=== PATIENT | female | born 1950 | race Hispanic/Latino ===

== ENCOUNTER 2017-11-08 15:08 | Inpatient (IN) | payer MEDICARE ==
[~2017-11-08 15:08] MED LIST: ISOVUE-370 76%-LOCM 1 ML ONE
[2017-11-08 15:45] LABS: Bilirubin Small (Negative); Blood, Urine Trace (Negative); Clarity CLEAR (Clear); Glucose, Urine (Dipstick) Negative (Negative); Leukocyte Negative (Negative); Nitrite Negative (Negative); Protein, Urine (Dipstick) 30 mg/dL (Neg-Trace); Specific Gravity, Urine 1.026 (1.002-1.036); pH, Urine 6.5 (5.0-9.0)
[2017-11-08 15:51] LABS: Bacteria/HPF None Seen HPF (None Seen); Hyaline Casts/LPF 4-6 HYALINE CAST LPF (0-3 Hyaline); Pathc Cast-AUWi Flag 1.59 (0-2.49); WBC/HPF 0-3 HPF (0-3)
[2017-11-08 16:43] LABS: #Eosinphils 0.2 thou/uL (0.0-0.7); #Lymphocytes 0.9 thou/uL (1.20-3.40); #Monocytes 0.8 thou/uL (0.11-0.59); #Neutrophils 9.1 thou/uL (1.40-6.50); %Basophils 0.2 % (0.0-1.0); %Eosinophils 1.7 % (0.0-10.0); %Lymphocytes 8.3 % (21.0-51.0); %Monocytes 7.1 % (0.0-10.0); %Neutrophils 82.7 % (42.0-75.0); Hemoglobin 15.8 g/dL (12.0-16.0); Mean Corpuscular HGB CONC 35.3 g/dL (32.0-36.0); Mean Corpuscular Hemoglobin 32.8 pg (27.0-31.0); Mean Corpuscular Volume 92.8 fL (78.0-98.0); Platelet Count 199 thou/uL (130-400); RBC Distribution Width 11.5 % (11.5-14.5); Red Blood Cell (RBC) Count 4.83 mill/uL (4.20-5.40)
--- NOTE | 2017-11-08 17:02 | RAD ---
CHEST ONE VIEW: 11/08/17 HISTORY: 67-year-old female with chest pain. COMPARISON: 06/29/09. FINDINGS: Monitor leads overlie the chest. Heart size is within normal limits. The lungs are clear. IMPRESSION: No acute intrathoracic disease. Atherosclerosis of the aorta. POS: OFF
[2017-11-08 17:07] LABS: ALT (SGPT) 73 U/L (8-55); AST (SGOT) 132 U/L (5-34); Albumin 4.3 g/dL (3.4-4.8); Alkaline Phosphatase 106 U/L (40-150); Anion Gap 13 mmol/L (10-20); BUN (Urea Nitrogen) 15 mg/dL (9.8-20.1); Bilirubin, Total 1.1 mg/dL (0.2-1.2); Calc. Creatinine Clearance 0 mL/min (70-130); Carbon Dioxide 26 mmol/L (23-31); Chloride 106 mmol/L (98-107); Estimated GFR-MDRD 77; Globulin 3.3 g/dL (2.4-3.5); Glucose 159 mg/dL (80-115); Potassium 3.8 mmol/L (3.5-5.1); Protein, Total 7.6 g/dL (6.0-8.3); Sodium 141 mmol/L (136-145)
[2017-11-08 17:12] LABS: CKMB 2.3 ng/mL (0-6.6); Troponin I Less than 0.010 ng/mL (< 0.028)
--- NOTE | 2017-11-08 20:16 | ULT ---
RIGHT UPPER QUADRANT ULTRASOUND: 11/08/17 HISTORY: Abdominal pain and elevated lipase. FINDINGS: There are a few echogenic foci seen in the gallbladder lumen with posterior shadowing suggesting gall bladder calculi. Gallbladder wall is borderline thickened measuring 0.35 cm in thickness. No perichol ecystic fluid is present. The limited visualized portions of the pancreas, visualized portions of the IVC, liver, and right kid cris demonstrate a normal sonographic appearance. The right kidney measures 9.8 cm in length. IMPRESSION: Cholelithiasis with borderline thickening of the gallbladder wall. There is no pericholecystic fluid to definitely suggest cholecystitis, but cholecystitis in the correct clinical scenario is a possibil ity. The common duct is normal in caliber measuring 0.4 cm in diameter. POS: RAKAN
[2017-11-08 20:20] VITALS: BMI 27.4
[2017-11-08] MEDS ORDERED: Ondansetron HCl/PF 4 MG/2 ML Vial IVP PRN (20:30)
[2017-11-08] MEDS ORDERED: Ondansetron ODT 4 MG TAB SL PRN (20:30)
[2017-11-08] MEDS: Sodium Chloride 0.9% 1,000 ML IV SCH (21:12)
--- NOTE | 2017-11-08 21:56 | CT ---
CT ABDOMEN AND PELVIS WITH IV CONTRAST: 11/08/17 HISTORY: Nausea and feeling pressure to bilateral flank and chest. COMPARISON: Right upper quadrant ultrasound on 11/08/17. FINDINGS: There is a less than 4 mm pulmonary nodule seen at the medial aspect of the right lung base. Lung bas es are otherwise clear. There is mild gallbladder wall thickening with a punctate calculus seen in the dependent portion of t he gallbladder. These findings were seen on right upper quadrant ultrasound also obtained on today's date. A 13 mm hypodense cystic lesion is seen in the body of the pancreas, which cannot be further characte rized on this exam. The liver, spleen, bilateral adrenal glands, kidneys, abdominal aorta, urinary bladder and uterus dem onstrate a normal CT appearance for the patient's age. There is colonic diverticulosis with innumerable diverticula seen throughout the colon. There is no C T evidence of diverticulitis. No free fluid, fluid collection, or lymphadenopathy seen in the abdomen or pelvis. Osseous structures are intact IMPRESSION: 1. Cholelithiasis with mild gallbladder wall thickening. Findings may be related to cholecystiti s in the correct scenario. 2. Cystic pancreatic lesion in the body of the pancreas which measures 13 mm. This is difficult to further characterize on this examination. Followup examination in six months to one year is recomm ended. 3. Colonic diverticulosis. Code T POS: ELZA
[2017-11-08] MEDS ORDERED: Senokot 8.6 MG TAB PO PRN (23:07)
[2017-11-08] MEDS ORDERED: Bisacodyl 5 MG TAB PO PRN (23:07)
[2017-11-08] MEDS ORDERED: Dextrose 50% Abboject 50 ML SYRINGE SLOW IVP PRN (23:09)
[2017-11-08] MEDS ORDERED: Dextrose 5% in Water 1,000 ML IV PRN (23:09)
[2017-11-08] MEDS ORDERED: HumaLOG 300 UNITS/3 ML VIAL SC PRN (23:09)
--- NOTE | 2017-11-09 04:29 | PDOC.EVN ---
Event Note - Event Note Event Note: h&p [id number]
[2017-11-09 05:20] LABS: #Basophils 0.1 thou/uL (0.0-0.2); #Eosinphils 0.2 thou/uL (0.0-0.7); #Lymphocytes 1.1 thou/uL (1.20-3.40); #Monocytes 0.4 thou/uL (0.11-0.59); %Basophils 1.5 % (0.0-1.0); %Lymphocytes 22.7 % (21.0-51.0); %Monocytes 8.9 % (0.0-10.0); %Neutrophils 61.9 % (42.0-75.0); Hemoglobin 13.6 g/dL (12.0-16.0); Mean Corpuscular HGB CONC 34.8 g/dL (32.0-36.0); Mean Corpuscular Hemoglobin 32.8 pg (27.0-31.0); Mean Corpuscular Volume 94.3 fL (78.0-98.0); Mean Platelet Volume 8.3 fL (7.4-10.4); Platelet Count 157 thou/uL (130-400); RBC Distribution Width 11.6 % (11.5-14.5); Red Blood Cell (RBC) Count 4.16 mill/uL (4.20-5.40); White Blood Cell (WBC) Count 4.9 thou/uL (4.8-10.8)
--- NOTE | 2017-11-09 05:22 | HP ---
PRIMARY CARE PHYSICIAN: Dr. Fabian Carpio. CHIEF COMPLAINT: Nausea. HISTORY OF PRESENT ILLNESS: A 67-year-old female with minimal past medical history who presents with a chief complaint of nausea and bilateral chest pain accompanied by one episode of vomiting that occurred earlier during the day. Patient denies any prior similar episodes or any episodes of vomiting or chest pain prior to presentation. At the time of my evaluation, the patient denies any continued chest pain, has not had any further vomiting and currently is pain-free throughout. REVIEW OF SYSTEMS: As per HPI. Constitutional: Denies any fevers, chills, significant weight gain or loss. HEENT: Denies any new headaches, vision changes, lightheadedness or dizziness. Cardiovascular: Denies any palpitation. Was experiencing bilateral chest pain during her onset of nausea, which is currently resolved and has not recurred. Respiratory: The patient endorsed some shortness of breath when she was having the chest pain, which again is resolved. Otherwise, denies any shortness of breath, congestion, or cough outside of that one episode. Gastrointestinal: As per HPI. No continued nausea. No continued abdominal pain. No issues with diarrhea or constipation. Genitourinary: Denies any issues with dysuria, change in urinary frequency, quantity, quality, or odor. Musculoskeletal: Denies any myalgias or arthralgias. Remainder of the review of systems otherwise negative. PAST MEDICAL HISTORY: Includes diabetes, hyperlipidemia. PAST SURGICAL HISTORY: She has had prior hysterectomy and no other surgeries. HOME MEDICATIONS: 1. Atorvastatin 10 mg p.o at bedtime. 2. Aspirin 81 mg p.o. daily. 3. Cholecalciferol 1000 units p.o. daily. 4. Metformin 500 mg p.o. daily. FAMILY HISTORY: The patient denies any known family history of pancreatic issues, gastrointestinal issues. SOCIAL HISTORY: The patient denies any alcohol, tobacco, or illicit drug use. Endorses she wishes to be FULL CODE at this point in time. PHYSICAL EXAMINATION: VITAL SIGNS: Temperature 98, respirations 18, satting 97% on room air, heart rate of 68, blood pressure 152/78. GENERAL: The patient is awake, alert, appropriate, in no acute distress, lying in the hospital bed. HEENT: Normocephalic, atraumatic, slightly dry mucous membranes, equal ocular motions are intact. CARDIOVASCULAR: S1, S2. No murmurs, rubs, or gallops. Pulses 2+ bilateral upper extremities. No pitting pedal edema. RESPIRATORY: No conversational dyspnea. No wheezes, rales, or rhonchi. Grossly clear to auscultation with reasonable air movement. ABDOMEN: Positive bowel sounds, soft, grossly nontender to palpation. MUSCULOSKELETAL: Moving all 4 extremities equally. IMAGIN. On 11/08/2017, ultrasound of the abdomen: Impression: "Cholelithiasis with borderline thickening of the gallbladder wall. There is no pericholecystic fluid to definitely suggest cholecystitis, but cholecystitis in the correct clinical scenario is a possibility. The common duct is normal in caliber, measuring 0.4 cm in diameter." 2. On 11/08/2017, chest x-ray: Impression: "No acute intrathoracic disease. Atherosclerosis of the aorta." 3. On 11/08/2017, CT of the abdomen and pelvis: Impression: "Cholelithiasis with mild gallbladder wall thickening. Findings may be related to cholecystitis in the correct scenario. Cystic pancreatic lesion in the body of the pancreas, which measures 13 mm. This is difficult to further characterize on this examination. Followup examination in 6 months to 1 year is recommended. Colonic diverticulosis." LABORATORY DATA: WBC 11.0, hemoglobin 15.8, hematocrit 44.9, platelets 199, 000. D-dimer 0.85, sodium 141, potassium 3.8, chloride 106, bicarbonate 26, BUN 15, creatinine 0.75, glucose 159, calcium 10.0, magnesium 2.0, total bilirubin 1.1, AST 132, ALT 73, alkaline phosphatase 106. Creatinine kinase 79 , troponin less than 0.1, total protein 7.6, albumin 4.3, lipase is 550. UA is significant for 30 of protein, 40 ketones, trace blood, small bilirubin, 7-10 urine rbc's, 4-6 urine squamous epithelial cells, 4-6 hyaline casts. ASSESSMENT AND PLAN: A 67-year-old female presenting with a chief complaint of nausea and vomiting x1. 1. Nausea and vomiting x1 with concerning for a question of pancreatitis versus mild cholecystitis. The patient is currently n.p.o., IV fluids, pain control. Lipsse 550. I appreciate gastroenterology consultation. We will recheck the patient's LFTs in the morning as well and continue to closely monitor. 2. Pancreatic cyst. Unclear that this is necessarily the etiology of the patient's presentation. We will need longitudinal followup. 3. Type 2 diabetes. Continue to monitor. Hold metformin while the patient is n.p.o. The patient will be covered by sliding scale insulin while inpatient. 4. Hyperlipidemia. Continue with the home regimen. 5. Diet: N.p.o., IV fluids. 6. Activity: As tolerated. 7. Deep venous thrombosis prophylaxis with enoxaparin. MTDD
[2017-11-09 05:31] LABS: ALT (SGPT) 139 U/L (8-55); AST (SGOT) 104 U/L (5-34); Albumin 3.5 g/dL (3.4-4.8); Alkaline Phosphatase 91 U/L (40-150); Anion Gap 9 mmol/L (10-20); BUN (Urea Nitrogen) 9 mg/dL (9.8-20.1); Bilirubin, Total 0.7 mg/dL (0.2-1.2); Calc. Creatinine Clearance 81 mL/min (70-130); Calcium 8.6 mg/dL (7.8-10.44); Carbon Dioxide 28 mmol/L (23-31); Chloride 107 mmol/L (98-107); Estimated GFR-MDRD 88; Globulin 2.7 g/dL (2.4-3.5); Glucose 103 mg/dL (80-115); Lipase 66 U/L (8-78); Potassium 3.9 mmol/L (3.5-5.1); Protein, Total 6.2 g/dL (6.0-8.3); Sodium 140 mmol/L (136-145)
[2017-11-09] MEDS: Sodium Chloride 0.9% 1,000 ML IV SCH ×3 (05:37→22:51)
[2017-11-09] MEDS ORDERED: Enoxaparin Sodium 30 MG/0.3 ML SYRINGE SC SCH (09:00)
[2017-11-09] MEDS: Docusate 100 MG CAP PO SCH ×2 (09:13→20:15)
[2017-11-09] MEDS ORDERED: Ondansetron ODT 4 MG TAB SL PRN (13:02)
[2017-11-09] MEDS ORDERED: Ondansetron HCl/PF 4 MG/2 ML Vial IVP PRN (13:03)
--- NOTE | 2017-11-09 13:21 | PDOC.PN ---
- Subjective Encounter Start Date: 11/09/17 Encounter Start Time: 07:45 Subjective: no abd pain or nausea -: feels good this morning, is watching tv - Objective Resuscitation Status: Resuscitation Status FULL:Full Resuscitation MAR Reviewed: Yes Vital Signs & Weight: Vital Signs (12 hours) Temp Pulse Resp BP Pulse Ox 11/09/17 12:16 97.7 F 52 L 52 H 156/74 H 98 11/09/17 08:00 97.8 F 63 16 98 11/09/17 07:52 97.8 F 63 16 153/77 H 98 11/09/17 04:05 97.7 F 63 18 154/74 H 97 Weight Weight 140 lb 9 oz I&O: 11/08/17 11/09/17 11/10/17 06:59 06:59 06:59 Intake Total 1000 Balance 1000 Result Diagrams: 11/09/17 04:35 11/09/17 04:35 Additional Labs: Accuchecks 11/09/17 11/08/17 05:36 23:25 POC Glucose 102 100 Phys Exam - Physical Examination HEENT: PERRLA, moist MMs Neck: no JVD, supple Respiratory: no wheezing, no rales Cardiovascular: RRR, no significant murmur Gastrointestinal: soft, non-tender, no distention, positive bowel sounds no rigidity or guarding Musculoskeletal: no edema, pulses present Neurological: non-focal, moves all 4 limbs Psychiatric: normal affect, A&O x 3 Dx/Plan (1) Acute pancreatitis Code(s): K85.90 - ACUTE PANCREATITIS WITHOUT NECROSIS OR INFECTION, UNSP Status: Suspected Qualifiers: Pancreatitis type: unspecified pancreatitis type (2) Cholelithiasis Code(s): K80.20 - CALCULUS OF GALLBLADDER W/O CHOLECYSTITIS W/O OBSTRUCTION Status: Chronic Qualifiers: Cholelithiasis location: gallbladder Cholecystitis presence: without cholecystitis (3) Dyslipidemia Code(s): E78.5 - HYPERLIPIDEMIA, UNSPECIFIED Status: Chronic (4) DM type 2 (diabetes mellitus, type 2) Status: Chronic Qualifiers: Diabetes mellitus longterm insulin use: without meterman use Diabetes mellitus complication status: with unspecified complications Qualified Code(s) : E11.8 - Type 2 diabetes mellitus with unspecified complications - Plan start clear liq diet, is totally asymptomatic now -: d/w Dr.Parrent with reg to imaging, outpt appt -: will need endo usg for pancreatic cyst? per adv -: still has elevated alt and ast, lipase is down to 66 -: continue iv hydration * . Review of Systems - Medications/Allergies Allergies/Adverse Reactions: Allergies Allergy/AdvReac Type Severity Reaction Status Date / Time No Known Allergies Allergy Unverified 11/08/17 20:21 Medications: Current Medications Bisacodyl (Dulcolax) 10 mg PO DAILYPRN PRN PRN Reason: Constipation Dextrose/Water (Dextrose 50%) 25 gm SLOW IVP PRN PRN PRN Reason: Hypoglycemia Docusate Sodium (Colace) 100 mg PO BID [facility] Last Admin: 11/09/17 09:13 Dose: Not Given Enoxaparin Sodium (Lovenox) 30 mg SC 0900 [facility] Last Admin: 11/09/17 09:13 Dose: 30 mg Glucagon (Glucagon) 1 mg IM PRN PRN PRN Reason: Hypoglycemia Dextrose/Water (D5w) 1,000 mls @ 0 mls/hr IV .Q0M PRN PRN Reason: Hypoglycemia Sodium Chloride (Normal Saline 0.9%) 1,000 mls @ 100 mls/hr IV .Q10H [facility] Insulin Human Lispro (Humalog) 0 units SC .MILD SLIDING SCALE PRN PRN Reason: Mild Correctional Scale Morphine Sulfate (Morphine) 2 mg SLOW IVP Q2H PRN PRN Reason: Pain Ondansetron HCl (Zofran Odt) 4 mg SL Q6H PRN PRN Reason: Nausea/Vomiting Ondansetron HCl (Zofran) 4 mg IVP Q6H PRN PRN Reason: Nausea/Vomiting Senna (Senokot) 2 tab PO HSPRN PRN PRN Reason: Constipation Sodium Chloride (Flush - Normal Saline) 10 ml IVF Q12HR [facility] Last Admin: 11/09/17 09:13 Dose: 10 ml Sodium Chloride (Flush - Normal Saline) 10 ml IVF PRN PRN PRN Reason: Saline Flush
--- NOTE | 2017-11-09 20:09 | CON ---
DATE OF CONSULTATION: 11/09/2017 GI CONSULTATION REASON FOR CONSULTATION: Cyst in the pancreas and abdominal pain and gallstones. HISTORY OF PRESENT ILLNESS: Ms. Spring is a very pleasant 67-year-old female who came to the [facility] room because she was having tightness around her back and chest and flank with some nausea and vomiting. She also felt a little short of breath. This started about a little after breakfast chori zo and eggs, but at the time, she was here in the emergency room, she actually started to feel better . She also had had some left lower quadrant discomfort on and off for the past day. She had normal bowel movements with no hematochezia or melena and she had no diarrhea. She denied feeling sick like she had a stomach bug or flu and before these symptoms came on, she was otherwise normal. She denie s any similar episodes in the past. She denies any previous episodes of shortness breath, chest pain , nausea or diaphoresis with exertion. She works as a rn intern at [employer] and her states she also stays very active at home. Presently she feels fine. In the emergency room showed a white cou nt 11, hemoglobin 15, and platelet count of 119. She had a D-dimer 0.85. She had a troponin of less than 0.01 and normal EKG. Lipase was elevated at 550, AST and ALT are 132 and 73 with a bilirubin o f 1.1. Albumin was 4.3 with a protein of 7.6. Renal function, electrolytes were normal. She was se nt for an ultrasound that showed gallstones with a thickened gallbladder wall 0.35 cm. The common du ct was 4 mm. There was no pericholecystic fluid. The liver otherwise appeared normal. Then, she al so had a chest x-ray, which was normal. Then, she had a CAT scan, in that showed a 13 mm cystic lesi on in the body of the pancreas as well as the gallstones and diverticulosis without any signs of dive rticulitis. She was admitted to the hospital and made n.p.o. presently she feels fine. She is on a clear liquid diet. PAST MEDICAL HISTORY: Diabetes, hyperlipidemia. PAST SURGICAL HISTORY: Hysterectomy for uterine prolapse. She has had a colonoscopy in the past, wh ich was normal. HOME MEDICATIONS: Atorvastatin 10 mg at bedtime, aspirin 81 mg a day, metformin 1000 mg a day, winnie calciferol 1000 units daily. FAMILY HISTORY: Negative for pancreatic disease. Negative for colorectal cancer. Negative for miguelina nary artery disease or stroke. MEDICATIONS HERE: Dulcolax p.r.n., Lovenox 30 every day, insulin sliding scale, morphine, p.r.n. Zof ran, p.r.n., Senokot, p.r.n., normal saline 100 an hour. SOCIAL HISTORY: The patient does not smoke, drink or use drugs. REVIEW OF SYSTEMS: She has never had any bouts of pancreatitis before. She denies any melena, hemat ochezia, hematemesis, dysphagia, odynophagia, reflux, weight loss, fever, chills, change in bowel fun ction, shortness of breath, chest pain, dyspnea on exertion, asthma, wheezing, cough. PHYSICAL EXAMINATION: VITAL SIGNS: Temperature is 97.7, pulse 52, blood pressure 156/74. GENERAL: She is resting comfortably in bed. She is alert and oriented to person, place, and time. Her is at bedside. HEENT: Supple, without adenopathy. LUNGS: Clear. CARDIOVASCULAR: Heart regular, without clicks or murmurs. ABDOMEN: Soft, nontender, no rebound or guarding. EXTREMITIES: No clubbing, cyanosis or edema. LABORATORY DATA: Per HPI. Urinalysis showed some ketones on admission, trace blood, 7-10 red blood cells, lipase today 66. AST and ALT have dropped from 132 and 73-104 and 139. Electrolytes were nor mal. ASSESSMENT: 1. This is a 67-year-old female who presented to emergency room with about two hours of tightness ac ross her lower chest and flanks with nausea and vomiting. This lasted about two hours after eating a nd then resolved. She does not have any other episodes such as this in the past. She denies any oth er episodes of right upper quadrant pain. However, in these episodes, her LFTs were elevated and her lipase was elevated. The lipase is now normal. The patient does not know of her liver test being a bnormal before. She does see Dr. Carpio for checkups routinely and states there have been no menti on of that there. She initially came in because she was concerned about her heart, but her cardiac e nzymes and EKG were negative and she does not have any symptoms suggestive of exertional ischemia or nonexertional chest pain outside of this episode. With the correlation of the abdominal pain with el evation of lipase and liver enzymes and gallstones, I suspect this was an episode of mild biliary russo creatitis. Differential diagnosis would include a possible viral gastroenteritis with incidental fin ding of gallstones, but it does less likely. 2. With regard to her pancreatic cyst. This seems to be probably a benign pancreatic cyst, possibly mucinous or serous cystadenoma most likely IPM is possible. There is no evidence of a dilated pancreatic duct proximal to the cystic lesion. There is no evidence of adenopathy and calcifi cations or satellite lesions. This should be worked up with MRCP in 3 months and can be followed for change inside the EUS would be reasonable before followup. I do not think this is related to her ac james symptoms anyway and was an incidental finding with her becomes clinically significant or not, it is yet to be seen. RECOMMENDATIONS: 1. Surgical consultation regarding gallstones and likely gallstone pancreatitis. 2. Follow up in 3 months for MRCP of the pancreas to evaluate follow up pancreatic cyst.
[2017-11-10 04:23] LABS: #Eosinphils 0.3 thou/uL (0.0-0.7); #Lymphocytes 1.2 thou/uL (1.20-3.40); #Monocytes 0.4 thou/uL (0.11-0.59); #Neutrophils 2.1 thou/uL (1.40-6.50); %Basophils 0.7 % (0.0-1.0); %Eosinophils 7.4 % (0.0-10.0); %Lymphocytes 29.6 % (21.0-51.0); %Monocytes 9.3 % (0.0-10.0); %Neutrophils 53.1 % (42.0-75.0); Hemoglobin 13.8 g/dL (12.0-16.0); Mean Corpuscular HGB CONC 34.6 g/dL (32.0-36.0); Mean Corpuscular Hemoglobin 32.5 pg (27.0-31.0); Mean Corpuscular Volume 93.8 fL (78.0-98.0); Platelet Count 160 thou/uL (130-400); RBC Distribution Width 11.5 % (11.5-14.5); Red Blood Cell (RBC) Count 4.24 mill/uL (4.20-5.40)
[2017-11-10 04:53] LABS: ALT (SGPT) 96 U/L (8-55); AST (SGOT) 41 U/L (5-34); Albumin 3.7 g/dL (3.4-4.8); Alkaline Phosphatase 83 U/L (40-150); Anion Gap 11 mmol/L (10-20); BUN (Urea Nitrogen) 5 mg/dL (9.8-20.1); Bilirubin, Total 0.5 mg/dL (0.2-1.2); Calc. Creatinine Clearance 87 mL/min (70-130); Calcium 8.8 mg/dL (7.8-10.44); Carbon Dioxide 24 mmol/L (23-31); Chloride 106 mmol/L (98-107); Estimated GFR-MDRD Greater than 90; Globulin 2.7 g/dL (2.4-3.5); Glucose 115 mg/dL (80-115); Potassium 3.2 mmol/L (3.5-5.1); Protein, Total 6.4 g/dL (6.0-8.3); Sodium 138 mmol/L (136-145)
[2017-11-10] MEDS ORDERED: Bupivacaine/Epinephrine 0.25% 30 ML VIAL ONE (07:41)
[2017-11-10] MEDS ORDERED: Iothalamate Meglumine 60% 50 ML VIAL FS ONE (07:41)
[2017-11-10] MEDS ORDERED: Fentanyl 100 MCG/2 ML VIAL ONE (07:47)
[2017-11-10] MEDS ORDERED: Promethazine HCl 25 MG/ML VIAL IM PRN ×2 (07:56→10:08)
[2017-11-10] MEDS ORDERED: Ondansetron HCl/PF 4 MG/2 ML Vial IVP PRN ×2 (07:56→10:08)
[2017-11-10] MEDS ORDERED: Meperidine HCl/PF 25 MG/ML VIAL SLOW IVP PRN (07:56)
[2017-11-10] MEDS ORDERED: Promethazine HCl 25 MG/ML VIAL SLOW IVP PRN (07:56)
[2017-11-10] MEDS ORDERED: CEFAZOLIN/Water 2 GM/20 ML SYRINGE ONE (08:05)
[2017-11-10] MEDS: Sodium Chloride 0.9% 1,000 ML IV SCH (08:50)
[2017-11-10] MEDS: Docusate 100 MG CAP PO SCH (08:50)
[2017-11-10] MEDS ORDERED: Sodium Chloride For Inhalation 0.9% 3 ML NEB ONE (09:20)
[2017-11-10] MEDS ORDERED: Mag-Al 1200 mg/1200 mg/30 ML UDCUP PO PRN (10:08)
[2017-11-10] MEDS ORDERED: D5 1/2 NS w/20 mEq KCL 1,000 ML IV SCH (10:08)
[2017-11-10] MEDS ORDERED: hydrALAZINE 20 MG/ML VIAL SLOW IVP PRN (10:08)
[2017-11-10] MEDS ORDERED: Calcium Carbonate 500 MG ChewTAB PO PRN (10:08)
[2017-11-10] MEDS ORDERED: Famotidine 20 MG TAB PO SCH ×2 (10:08→21:00)
[2017-11-10] MEDS ORDERED: Famotidine/PF 20 mg/2ml Vial SLOW IVP SCH ×3 (10:08→21:00)
[2017-11-10] MEDS ORDERED: Dextrose 50% Abboject 50 ML SYRINGE SLOW IVP PRN (10:08)
[2017-11-10] MEDS ORDERED: HYDROcodone/Acetaminophen 10/325 mg Tablet PO PRN ×2 (10:08)
[2017-11-10] MEDS ORDERED: Dextrose 5% in Water 1,000 ML IV PRN (10:08)
[2017-11-10] MEDS ORDERED: Morphine 4 MG/ML VIAL SLOW IVP PRN (10:08)
--- NOTE | 2017-11-10 10:52 | RAD ---
INTRAOPERATIVE CHOLANGIOGRAM: HISTORY: Cholelithiasis, cholecystectomy. FINDINGS: A single spot fluoroscopic image during a cholangiogram demonstrates changes of cholecystectomy. The re is opacity in the common bile duct and main hepatic ducts and some of their branches with a sugges tion of a filling defect in the proximal common bile duct. This may either be due to an air bubble ( more likely) or calculus. There is contrast in the duodenum. Surgical instruments are in the field of view. POS: ELZA
--- NOTE | 2017-11-10 13:17 | OP ---
DATE OF OPERATION: 11/10/2017 PREOPERATIVE DIAGNOSIS: Gallstone pancreatitis. POSTOPERATIVE DIAGNOSIS: Gallstone pancreatitis. PROCEDURE: Laparoscopic cholecystectomy, intraoperative cholangiogram. SURGEON: Tera Lai M.D. ANESTHESIA: General. ESTIMATED BLOOD LOSS: Minimal. COMPLICATIONS: None. SPECIMEN: Gallbladder. FINDINGS: Normal cholangiogram. TECHNIQUE: The patient was taken to the operating room and placed supine on the table. After genera l anesthetic was obtained, the abdomen was prepped and draped in a sterile fashion. Curved incision made above the umbilicus. Cautery was used to dissect down to and score the fascia. Abdominal cavit y entered bluntly using a Marisol clamp. Holding stitch of PDS placed on each side of the fascia. Has bear trocar was placed. High-flow pneumoperitoneum was obtained. Upper midline 5-mm port and 2 right upper quadrant 5 mm ports were placed under direct visualization. Gallbladder was retracted from th e gallbladder fossa. The peritoneum was opened anteriorly and posteriorly. Critical view triangle w as seen showing only the cystic duct and cystic artery branching from medial to lateral no other bran madison structures. A clip was placed high on the cystic duct and a small ductotomy was made just prox imal to that. A cholangiocatheter was brought in and placed in the cystic duct and cholangiogram was performed which shows good contrast flow into the duodenum, right and left hepatic system without ob struction. Cholangiocatheter was removed and 2 clips were placed proximal on the cystic duct. The c ystic artery was taken using 2 clips proximally and one clip distally, and cut using laparoscopic sci ssors. Cautery used to dissect the gallbladder, gallbladder fossa. Gallbladder was placed in an End o catch bag and brought out through the Negrete. There is no bleeding in the liver bed. The right up per quadrant irrigated using sterile solution until returns are clear. The ports were all removed un gerri direct visualization without bleeding. Pneumoperitoneum was let down. PDS was used to close the fascial defect above the umbilicus. All incisions were irrigated and closed using 4-0 Monocryl and Dermabond. The patient went to recovery in stable condition. All sponge counts, needle counts, lap counts were correct.
--- NOTE | 2017-11-10 13:19 | CON ---
DATE OF CONSULTATION: 11/10/2017 CHIEF COMPLAINT: Epigastric pain. HISTORY OF PRESENT ILLNESS: This is a 67-year-old female, who presented with pain in epigastric area , admitted to the Medical Service for cardiac workup, which was negative, found to have gallstones, e levated lipase. Her liver function tests are now improved. Pain was described as 8/10 and sharp in the epigastric area, radiating to the right upper chest associated with nausea, no vomiting. No prev ious known history of gallstones, jaundice, pancreatitis. PAST MEDICAL HISTORY: Diabetes, hyperlipidemia. PAST SURGICAL HISTORY: Hysterectomy. MEDICINES: See list. ALLERGIES: No known drug allergies. SOCIAL HISTORY: No smoking, alcohol or other drugs. REVIEW OF SYSTEMS: Ten-system review of systems otherwise negative unless described above. PHYSICAL EXAMINATION: HEENT: Sclerae are anicteric. Oropharynx clear. NECK: No lymphadenopathy. CHEST: Clear. HEART: Regular rate and rhythm. ABDOMEN: Soft, tender right upper quadrant, localized guarding, no rebound, no abdominal hernias. EXTREMITIES: No ischemia or edema to extremities. LABORATORY AND X-RAY FINDINGS: Liver function test, AST, ALT are 41 and 96. Bilirubin normal. Lipa se was 66 yesterday elevated at 550 when she came in. Ultrasound shows gallstones. ASSESSMENT: Gallstone pancreatitis, resolved. PLAN: Laparoscopic cholecystectomy and intraoperative cholangiogram. Risks, benefits, alternatives discussed. She gives consent. We will do this today.
--- NOTE | 2017-11-10 14:56 | PDOC.PN ---
- Subjective Encounter Start Date: 11/10/17 Encounter Start Time: 11:00 Subjective: is post op lap winnie -: no nausea or vomiting - Objective Resuscitation Status: Resuscitation Status FULL:Full Resuscitation MAR Reviewed: Yes Vital Signs & Weight: Vital Signs (12 hours) Temp Pulse Resp BP BP Pulse Ox 11/10/17 11:03 53 L 170/77 H 11/10/17 08:00 97.9 F 53 L 18 93 L 11/10/17 07:33 97.9 F 53 L 18 148/73 H 93 L 11/10/17 03:29 98 F 56 L 16 156/85 H 95 Weight Weight 140 lb 9 oz I&O: 11/09/17 11/10/17 11/11/17 06:59 06:59 06:59 Intake Total 1000 1800 Balance 1000 1800 Result Diagrams: 11/10/17 04:04 11/10/17 04:04 Additional Labs: Accuchecks 11/10/17 11/10/17 11/09/17 11:19 06:18 23:58 POC Glucose 164 H 119 H 109 11/09/17 11/09/17 16:29 12:20 POC Glucose 97 105 Phys Exam - Physical Examination HEENT: PERRLA, moist MMs Neck: no JVD, supple Respiratory: no wheezing, no rales Cardiovascular: RRR, no significant murmur Gastrointestinal: soft, positive bowel sounds Musculoskeletal: no edema, pulses present Neurological: non-focal, moves all 4 limbs Psychiatric: normal affect, A&O x 3 Dx/Plan (1) Acute pancreatitis Code(s): K85.90 - ACUTE PANCREATITIS WITHOUT NECROSIS OR INFECTION, UNSP Status: Suspected Qualifiers: Pancreatitis type: biliary (2) Cholelithiasis Code(s): K80.20 - CALCULUS OF GALLBLADDER W/O CHOLECYSTITIS W/O OBSTRUCTION Status: Chronic Qualifiers: Cholelithiasis location: gallbladder Cholecystitis presence: with cholecystitis Comment: s/p lap winnie 11/10/2017 (3) Dyslipidemia Code(s): E78.5 - HYPERLIPIDEMIA, UNSPECIFIED Status: Chronic (4) DM type 2 (diabetes mellitus, type 2) Status: Chronic Qualifiers: Diabetes mellitus retirement insulin use: without retirement use Diabetes mellitus complication status: with unspecified complications Qualified Code(s) : E11.8 - Type 2 diabetes mellitus with unspecified complications - Plan hemostable -: has been cleared for dc by -: is post op lap winnie, doing well -: to ambulate in hallway prior to dc * .
[2017-11-10] MEDS ORDERED: Ketorolac Tromethamine 30 MG/ML VIAL ONE (15:24)
[2017-11-10] MEDS ORDERED: ePHEDrine/0.9% NaCl/PF SYRINGE 50 mg/10 ml ONE (15:24)
[2017-11-10] MEDS ORDERED: PROPOFOL 200 MG/20 ML VIAL ONE (15:24)
[2017-11-10] MEDS ORDERED: PHENYLEPHRINE-NS 100 MCG/ML 10 ML SYRINGE ONE (15:24)
[2017-11-10] MEDS ORDERED: Ondansetron HCl/PF 4 MG/2 ML Vial ONE (15:24)
[2017-11-10] MEDS ORDERED: Lidocaine 1% PF 5 ML VIAL ONE (15:24)
[2017-11-10] MEDS ORDERED: Glycopyrrolate 0.2 MG/ML 5 ML SYRINGE ONE (15:24)
[2017-11-10 15:53] VITALS: BP 151/83; TEMP 97.8
--- NOTE | 2017-11-10 21:36 | DIS ---
DATE OF ADMISSION: 11/08/2017 DATE OF DISCHARGE: 11/10/2017 DISCHARGE DISPOSITION: To home. PRIMARY DISCHARGE DIAGNOSIS: The patient is status post laparoscopic cholecystectomy for biliary russo creatitis. SECONDARY DISCHARGE DIAGNOSES: Diabetes mellitus type 2, dyslipidemia. PROCEDURES DONE DURING HOSPITALIZATION: The patient has had CT of the abdomen and pelvis done, which showed cholelithiasis with mild gallbladder wall thickening; cystic pancreatic lesion in the body of the pancreas, which measures 13 mm; colonic diverticulosis was seen. Right upper quadrant ultrasoun d done showed cholelithiasis with borderline thickening of the gallbladder wall. No pericholecystic fluid was seen. Common bile duct was 0.4 cm. The patient has had laparoscopic cholecystectomy done on 11/10/[address] Lai. White count was 11 on admission with discharge number of 4. Lipase wa s 550 on the day of admission with numbers dropping down to 66 on the 11/09/2017. Initial AST 132 wi th discharge numbers of 41. Initial ALT is 73, subsequently going up to 139, later dropping down to 96 on the day of discharge. Total bilirubin 0.5 on the day of discharge. Albumin is 3.7. DISCHARGE MEDICATIONS: Aspirin 81 mg p.o. daily, atorvastatin 10 mg p.o. at bedtime, vitamin D 3000 units p.o. daily, metformin extended release 500 mg p.o. daily, [place] p.r.n. for pain. ALLERGIES: No known drug allergies. INPATIENT CONSULTATIONS: Dr. Sainz for Gastroenterology, Dr. Lai for General Surgery. BRIEF COURSE DURING HOSPITALIZATION: The patient initially got admitted on the 11/09/2017 with compl aints of abdominal pain, nausea, and vomiting. Her initial lipase was 550 with mild elevation in krista er function enzymes. The patient has had consultation with supervisor gas meter repair, Dr. Sainz. She has had CT abdomen and right upper quadrant ultrasound, all of which were showing findings suggestive of cholelithiasis with cholecystitis and likely biliary pancreatitis. She was evaluated by Dr. Lai for General Surgery and has had laparoscopic cholecystectomy done early this morning. She has been c leared by Dr. Lai for discharge today. Please see a [id number] documentation on [facility] for t he day of discharge.
--- NOTE | 2017-11-11 05:27 | PRG ---
DATE OF SERVICE: 11/10/2017 SUBJECTIVE: Ms. Spring underwent a cholecystectomy today. She is feeling okay. OBJECTIVE: VITAL SIGNS: Temperature is 97, pulse 53, blood pressure 170/77. ABDOMEN: Soft and mildly tender trocar sites and appropriately, so these areas appeared benign. LABORATORY DATA: White count today was 4, hemoglobin was 13.8, platelet count was 160. AST and ALT were down to 41 and 96 from 132 and 139, alkaline phosphatase is 83, bilirubin is 0.5. Intraoperative cholangiogram performed today was normal. Per General Surgery, I felt the filling def ects seen on exam were air bubbles. There was spontaneous drainage of contrast. ASSESSMENT: 1. Biliary pancreatitis, resolved, status post laparoscopic cholecystectomy with negative IOC per Ge neral Surgery. 2. Pancreatic cyst, midbody with no proximal dilatation, it was 13 mm in size. RECOMMENDATIONS: 1. Followup in our office in 2 weeks for followup of the pancreatic cyst with Dr. Pandey, primary gas trologist. 2. Agree if patient is doing well and tolerating diet, no fever, and stable vital signs, she can go home and followup with General Surgery in the outpatient setting post-cholecystectomy.
== END 2017-11-10 15:45 | disposition home or self-care (01) | DRG 418 ==
LOC: ERS 15:08 → T4-A 19:00
PROVIDERS: ADMIT Internal Medicine; ATTEND Internal Medicine
PROC: 0FT44ZZ Resection of Gallbladder, Percutaneous Endoscopic Approach (ICD-10-PCS; principal; 2017-11-10)
PROC: BF101ZZ Fluoroscopy of Bile Ducts using Low Osmolar Contrast (ICD-10-PCS; 2017-11-10)
DX: K85.10 Biliary acute pancreatitis without necrosis or infection (principal); K86.2 Cyst of pancreas; E11.9 Type 2 diabetes mellitus without complications; E78.5 Hyperlipidemia, unspecified; Z79.84 Long term (current) use of oral hypoglycemic drugs; Z79.82 Long term (current) use of aspirin
CPT/HCPCS: 36415; 36416; 47532; 71045; 74177; 76705; 80053; 81003; 81015; 82553; 83690; 83735; 84484; 85025; 85379; 88304; 93005; 96360; 99406; A4216; J0360; J1610; J1650; J1885; J2001; J2405; J2704; J3010; J7620; Q9961; S0028

== ENCOUNTER 2020-01-27 09:46 | Outpatient (CLI) | payer MEDICARE ==
--- NOTE | 2020-01-27 11:05 | BD ---
EXAM: DEXA bone density examination HISTORY: 69-year-old postmenopausal female for screening COMPARISON: None FINDINGS: L1--bone mineral density 0.719 g/sq cm; T score -2.5 L2--bone mineral density 0.776 g/sq cm; T score -2.3 L3--bone mineral density 0.798 g/sq cm; T score -2.6 L4--bone mineral density 0.790 g/sq cm; T score -2.5 Total L1-L4--bone mineral density 0.774 g/sq cm; T score -2.5 Left femoral neck--bone mineral density0.539; T score -2.8 Total proximal left femur--bone mineral density 0.761; T score -1.5 IMPRESSION: Osteoporosis.
--- NOTE | 2020-01-27 11:23 | MMO ---
Bilateral MAMMO Bilat Screen [facility]. CLINICAL HISTORY: Patient is 69 years old and is seen for screening. The patient has the following family history of breast cancer: maternal aunt, at age 50. The patient has no personal history of cancer. VIEWS: The views performed were: bilateral craniocaudal with tomosynthesis and bilateral mediolateral oblique with tomosynthesis. FILMS COMPARED: The present examination has been compared to a prior imaging study performed at [facility] on 01/25/2016. This study has been interpreted with the assistance of computer-aided detection. MAMMOGRAM FINDINGS: There are scattered fibroglandular densities. Benign calcifications are noted bilaterally. There are no suspicious masses, suspicious calcifications, or new areas of architectural distortion. IMPRESSION: THERE IS NO MAMMOGRAPHIC EVIDENCE OF MALIGNANCY. A ROUTINE FOLLOW-UP MAMMOGRAM IN 1 YEAR IS RECOMMENDED. THE RESULTS OF THIS EXAM WERE SENT TO THE PATIENT. ACR BI-RADS Category 2 - Benign finding MAMMOGRAPHY NOTE: 1. A negative mammogram report should not delay a biopsy if a dominant of clinically suspicious mass is present. 2. Approximately 10% to 15% of breast cancers are not detected by mammography. 3. Adenosis and dense breasts may obscure an underlying neoplasm. Reported by: MAGALIE CANO MD Electonically Signed: [id number]
--- NOTE | 2020-01-27 11:28 | CT ---
EXAM: CT Pulmonary Lung Scan PROVIDED CLINICAL HISTORY: Tobacco abuse. Patient is 1 pack per day smoker for 40 years COMPARISON: CT abdomen on 11/08/2017. FINDINGS: There is a irregular subpleural nodular density seen anterior aspect right middle lobe measuring 5 mm which is unchanged compared to study in 2018. No additional discrete pulmonary nodule or mass is seen. Subsegmental atelectasis is present in the right upper lobe. Lungs are otherwise clear. Large airways are patent without filling defect visualized. Lack of intravenous contrast limits evaluation of vascular structures and mediastinum. However, no de finite enlarged lymph nodes are seen by CT size criteria. Minimal vascular calcifications are seen in the thoracic aorta. Upper abdomen demonstrates evidence of prior cholecystectomy. Cystic pancreatic lesion in the body the pancreas is not delineated on this nonenhanced CT exam. Colonic diverticula are seen at the splenic flexure. No suspicious lytic or sclerotic osseous lesions are identified. IMPRESSION: Lung RADS category 2-stable irregular pulmonary nodule right middle lobe. Continued annual screening with low-dose CT scan thorax in 12 months is recommended.
== END 2020-01-27 09:47 | disposition home or self-care (01) ==
LOC: BICMAMMO 09:46
PROVIDERS: ATTEND Physician Assistant
DX: Z12.31 Encounter for screening mammogram for malignant neoplasm of breast (principal); Z13.820 Encounter for screening for osteoporosis; Z12.2 Encounter for screening for malignant neoplasm of respiratory organs; F17.210 Nicotine dependence, cigarettes, uncomplicated; Z78.0 Asymptomatic menopausal state; Z80.3 Family history of malignant neoplasm of breast; M81.0 Age-related osteoporosis without current pathological fracture; R91.1 Solitary pulmonary nodule
CPT/HCPCS: 77063; 77067; 77080; G0297

== ENCOUNTER 2020-07-06 19:28 | Emergency (ER) | payer MEDICARE ==
[~2020-07-06 19:28] MED LIST changes: -ISOVUE-370 76%-LOCM 1 ML ONE; +Iopamidol-370 76% 500 ML 1 ML ONE
[2020-07-06 21:23] LABS: ALT (SGPT) 44 U/L (8-55); AST (SGOT) 36 U/L (5-34); Alkaline Phosphatase 56 U/L (40-110); Anion Gap 16 mmol/L (10-20); BUN (Urea Nitrogen) 23 mg/dL (9.8-20.1); Bilirubin, Total 0.3 mg/dL (0.2-1.2); Calc. Creatinine Clearance 0 mL/min (70-130); Carbon Dioxide 18 mmol/L (23-31); Chloride 103 mmol/L (98-107); Globulin 3.7 g/dL (2.4-3.5); Glucose 137 mg/dL (80-115); Potassium 4.2 mmol/L (3.5-5.1); Protein, Total 7.7 g/dL (5.8-8.1); Sodium 133 mmol/L (136-145)
[2020-07-06 21:34] LABS: #Lymphocytes 0.9 thou/uL (1.20-3.40); #Monocytes 0.3 thou/uL (0.11-0.59); #Neutrophils 2.6 thou/uL (1.40-6.50); %Basophils 0.3 % (0.0-1.0); %Eosinophils 0.6 % (0.0-10.0); %Monocytes 8.7 % (0.0-10.0); %Neutrophils 66.4 % (42.0-75.0); Hemoglobin 14.7 g/dL (12.0-16.0); Mean Corpuscular HGB CONC 33.7 g/dL (32.0-36.0); Mean Corpuscular Hemoglobin 32.4 pg (27.0-31.0); Mean Corpuscular Volume 96.1 fL (78.0-98.0); Mean Platelet Volume 8.7 fL (7.4-10.4); Platelet Count 114 thou/uL (130-400); Platelet Morphology Comment Appears Decreased; RBC Distribution Width 11.7 % (11.5-14.5); RBC Morphology Normal; Red Blood Cell (RBC) Count 4.54 mill/uL (4.20-5.40); White Blood Cell (WBC) Count 3.9 thou/uL (4.8-10.8)
== END 2020-07-06 23:05 | disposition home or self-care (01) ==
LOC: ERS 19:28
DX: U07.1 COVID-19 (principal); J12.82 Pneumonia due to coronavirus disease 2019; E11.9 Type 2 diabetes mellitus without complications; I10 Essential (primary) hypertension; F17.210 Nicotine dependence, cigarettes, uncomplicated; Z79.899 Other long term (current) drug therapy; Z79.84 Long term (current) use of oral hypoglycemic drugs
CPT/HCPCS: 36415; 71045; 71275; 80053; 83880; 84484; 85025; 93005; Q9967

== ENCOUNTER 2020-07-07 17:15 | Emergency (ER) | payer MEDICARE ==
[2020-07-07 18:38] LABS: Bacteria/HPF None Seen HPF (None Seen); Bilirubin Negative (Negative); Blood, Urine 1+ (Negative); Clarity Clear (Clear); Glucose, Urine (Dipstick) Normal (Negative); Ketone, Urine Negative (Negative); Leukocyte 250 Leu/uL (Negative); Nitrite Negative (Negative); Protein, Urine (Dipstick) 70 mg/dL (Neg-Trace); Specific Gravity, Urine 1.026 (1.002-1.036); Squamous Epithelial 0-3 HPF (0-3); Urobilinogen Normal mg/dL (Less than 2)
[2020-07-07 18:39] LABS: #Lymphocytes 0.6 thou/uL (1.20-3.40); #Monocytes 0.1 thou/uL (0.11-0.59); #Neutrophils 1.8 thou/uL (1.40-6.50); %Basophils 0.8 % (0.0-1.0); %Eosinophils 0.2 % (0.0-10.0); %Lymphocytes 24.5 % (21.0-51.0); %Monocytes 5.2 % (0.0-10.0); %Neutrophils 69.3 % (42.0-75.0); Hemoglobin 13.9 g/dL (12.0-16.0); Mean Corpuscular HGB CONC 32.8 g/dL (32.0-36.0); Mean Corpuscular Hemoglobin 31.6 pg (27.0-31.0); Mean Corpuscular Volume 96.5 fL (78.0-98.0); Mean Platelet Volume 8.9 fL (7.4-10.4); Platelet Count 109 thou/uL (130-400); RBC Distribution Width 11.8 % (11.5-14.5); Red Blood Cell (RBC) Count 4.38 mill/uL (4.20-5.40); White Blood Cell (WBC) Count 2.6 thou/uL (4.8-10.8)
[2020-07-07 18:57] LABS: ALT (SGPT) 42 U/L (8-55); AST (SGOT) 36 U/L (5-34); Albumin 3.9 g/dL (3.4-4.8); Alkaline Phosphatase 50 U/L (40-110); Anion Gap 16 mmol/L (10-20); BUN (Urea Nitrogen) 22 mg/dL (9.8-20.1); Bilirubin, Total 0.3 mg/dL (0.2-1.2); Calc. Creatinine Clearance 0 mL/min (70-130); Calcium 8.8 mg/dL (7.8-10.44); Carbon Dioxide 21 mmol/L (23-31); Chloride 104 mmol/L (98-107); Globulin 3.5 g/dL (2.4-3.5); Glucose 247 mg/dL (80-115); Potassium 4.1 mmol/L (3.5-5.1); Protein, Total 7.4 g/dL (5.8-8.1); Sodium 137 mmol/L (136-145)
== END 2020-07-07 19:20 | disposition home or self-care (01) ==
LOC: ERS 17:15
DX: U07.1 COVID-19 (principal); N39.0 Urinary tract infection, site not specified; E11.9 Type 2 diabetes mellitus without complications; I10 Essential (primary) hypertension; F17.210 Nicotine dependence, cigarettes, uncomplicated; Z79.84 Long term (current) use of oral hypoglycemic drugs; Z79.899 Other long term (current) drug therapy
CPT/HCPCS: 71045; 80053; 81003; 81015; 85025; 94760

== ENCOUNTER 2020-07-09 11:13 | Inpatient (IN) | payer MEDICARE ==
[2020-07-09 12:00] LABS: #Lymphocytes 0.8 thou/uL (1.20-3.40); #Monocytes 0.3 thou/uL (0.11-0.59); #Neutrophils 3.8 thou/uL (1.40-6.50); %Basophils 0.3 % (0.0-1.0); %Eosinophils 0.1 % (0.0-10.0); %Lymphocytes 15.6 % (21.0-51.0); %Monocytes 5.2 % (0.0-10.0); %Neutrophils 78.9 % (42.0-75.0); Hemoglobin 14.1 g/dL (12.0-16.0); Mean Corpuscular HGB CONC 33.5 g/dL (32.0-36.0); Mean Corpuscular Hemoglobin 32.3 pg (27.0-31.0); Mean Corpuscular Volume 96.5 fL (78.0-98.0); Mean Platelet Volume 8.5 fL (7.4-10.4); Platelet Count 136 thou/uL (130-400); RBC Distribution Width 11.8 % (11.5-14.5); Red Blood Cell (RBC) Count 4.35 mill/uL (4.20-5.40); White Blood Cell (WBC) Count 4.9 thou/uL (4.8-10.8)
[2020-07-09] MEDS ORDERED: Aspirin 325 MG TAB ONE (12:13)
[2020-07-09] MEDS ORDERED: Dexamethasone 10 MG/ML VIAL ONE (12:13)
[2020-07-09] MEDS ORDERED: cefTRIAXone\\ROCEPHIN 1 GM VIAL ONE (12:13)
[2020-07-09] MEDS ORDERED: Enoxaparin Sodium 60 MG/0.6 ML SYRINGE ONE (12:13)
[2020-07-09 12:19] LABS: ALT (SGPT) 41 U/L (8-55); AST (SGOT) 42 U/L (5-34); Albumin 3.8 g/dL (3.4-4.8); Alkaline Phosphatase 47 U/L (40-110); Anion Gap 17 mmol/L (10-20); BUN (Urea Nitrogen) 25 mg/dL (9.8-20.1); Bilirubin, Total 0.4 mg/dL (0.2-1.2); CK (CPK) 145 U/L (29-168); Calc. Creatinine Clearance 0 mL/min (70-130); Calcium 8.9 mg/dL (7.8-10.44); Carbon Dioxide 22 mmol/L (23-31); Chloride 103 mmol/L (98-107); Globulin 3.7 g/dL (2.4-3.5); Glucose 166 mg/dL (80-115); Lipase 58 U/L (8-78); Potassium 3.9 mmol/L (3.5-5.1); Protein, Total 7.5 g/dL (5.8-8.1); Sodium 138 mmol/L (136-145)
[2020-07-09] MEDS ORDERED: Iopamidol 370 76% 100 ML VIAL ONE (12:51)
[2020-07-09] MEDS ORDERED: Azithromycin 500 MG VIAL ONE (13:28)
[2020-07-09] MEDS ORDERED: Ondansetron PF 4 MG/2 ML Vial IVP PRN (14:57)
[2020-07-09] MEDS ORDERED: Ondansetron ODT 4 MG TAB PO PRN (14:57)
[2020-07-09] MEDS ORDERED: Dexamethasone 20 MG/5 ML VIAL SLOW IVP SCH (15:00)
[2020-07-09] MEDS ORDERED: Dexamethasone 6 MG in Sodium Chloride 0.9% 50 ML IVPB ONE (15:30)
[2020-07-09] MEDS: Sodium Chloride 0.9% 1,000 ML IV SCH (17:28)
[2020-07-09] MEDS: Albuterol 200 PUFF (6.7GM INHALER) INH SCH ×2 (18:15→21:45)
[2020-07-09] MEDS ORDERED: Albuterol Sulfate 2.5 mg/3 ml Neb IPPB SCH (18:30)
[2020-07-09] MEDS ORDERED: Lantus 1000 UNITS/10 ML VIAL SC SCH (21:00)
[2020-07-09] MEDS: Atorvastatin Calcium 10 MG TAB PO SCH (21:43)
[2020-07-10] MEDS: Albuterol 200 PUFF (6.7GM INHALER) INH SCH ×6 (03:08→21:49)
[2020-07-10 06:02] LABS: #Lymphocytes 0.6 thou/uL (1.20-3.40); #Monocytes 0.3 thou/uL (0.11-0.59); #Neutrophils 4.3 thou/uL (1.40-6.50); %Eosinophils 0.1 % (0.0-10.0); %Lymphocytes 11.2 % (21.0-51.0); %Monocytes 5.8 % (0.0-10.0); %Neutrophils 82.9 % (42.0-75.0); Hemoglobin 12.7 g/dL (12.0-16.0); Mean Corpuscular HGB CONC 33.2 g/dL (32.0-36.0); Mean Corpuscular Hemoglobin 32.2 pg (27.0-31.0); Mean Platelet Volume 8.3 fL (7.4-10.4); Platelet Count 144 thou/uL (130-400); RBC Distribution Width 11.8 % (11.5-14.5); Red Blood Cell (RBC) Count 3.95 mill/uL (4.20-5.40); White Blood Cell (WBC) Count 5.2 thou/uL (4.8-10.8)
[2020-07-10 06:22] LABS: Anion Gap 13 mmol/L (10-20); BUN (Urea Nitrogen) 19 mg/dL (9.8-20.1); Calc. Creatinine Clearance 70 mL/min (70-130); Carbon Dioxide 19 mmol/L (23-31); Chloride 111 mmol/L (98-107); Glucose 181 mg/dL (80-115); Sodium 139 mmol/L (136-145)
[2020-07-10] MEDS: Aspirin Chewable 81 MG TAB PO SCH (08:22)
[2020-07-10] MEDS: Sodium Chloride 0.9% 1,000 ML IV SCH (08:22)
[2020-07-10] MEDS ORDERED: Dexamethasone 4 mg/ml Vial SLOW IVP SCH (09:00)
[2020-07-10] MEDS ORDERED: Enoxaparin Sodium 40 MG/0.4 ML SYRINGE SC SCH (09:00)
[2020-07-10] MEDS ORDERED: Ivermectin 3 MG TAB PO SCH (09:45)
[2020-07-10] MEDS: guaiFENesin/Codeine 200 mg/20 mg 10 ml Cup PO PRN (09:49)
[2020-07-10] MEDS: cefTRIAXone\\ROCEPHIN 1 GM in Sodium Chloride 0.9% 100 ML IVPB SCH (10:56)
[2020-07-10] MEDS: Azithromycin 500 MG in Sodium Chloride 0.9% 250 ML 250 ML IVPB SCH (12:47)
[2020-07-10] MEDS: Insulin Regular 300 UNITS/3 ML VIAL SC PRN ×2 (12:49→17:07)
[2020-07-10] MEDS: Benzonatate 100 MG CAP PO SCH ×2 (14:34→21:17)
[2020-07-10] MEDS: Lantus 1000 UNITS/10 ML VIAL SC SCH (21:16)
[2020-07-10] MEDS: Atorvastatin Calcium 10 MG TAB PO SCH (21:17)
[2020-07-10] MEDS: Colchicine 0.6 MG TAB PO SCH (21:17)
[2020-07-10] MEDS: Dexamethasone 4 mg/ml Vial SLOW IVP SCH (21:19)
[2020-07-10] MEDS: Enoxaparin Sodium 40 MG/0.4 ML SYRINGE SC SCH (21:21)
[2020-07-11] MEDS: Albuterol 200 PUFF (6.7GM INHALER) INH SCH ×6 (02:23→23:34)
[2020-07-11 03:37] LABS: #Lymphocytes 0.5 thou/uL (1.20-3.40); #Monocytes 0.3 thou/uL (0.11-0.59); #Neutrophils 5.4 thou/uL (1.40-6.50); %Eosinophils 0.1 % (0.0-10.0); %Lymphocytes 8.5 % (21.0-51.0); %Monocytes 5.4 % (0.0-10.0); Hemoglobin 12.9 g/dL (12.0-16.0); Mean Corpuscular HGB CONC 33.5 g/dL (32.0-36.0); Mean Corpuscular Hemoglobin 32.4 pg (27.0-31.0); Mean Corpuscular Volume 96.9 fL (78.0-98.0); Mean Platelet Volume 7.8 fL (7.4-10.4); Platelet Count 174 thou/uL (130-400); RBC Distribution Width 11.8 % (11.5-14.5); Red Blood Cell (RBC) Count 3.98 mill/uL (4.20-5.40); White Blood Cell (WBC) Count 6.3 thou/uL (4.8-10.8)
[2020-07-11 03:58] LABS: Anion Gap 14 mmol/L (10-20); BUN (Urea Nitrogen) 19 mg/dL (9.8-20.1); CRP (Inflammatory) 4.15 mg/dL (= or < 0.5); Calc. Creatinine Clearance 74 mL/min (70-130); Calcium 8.2 mg/dL (7.8-10.44); Carbon Dioxide 20 mmol/L (23-31); Chloride 111 mmol/L (98-107); Glucose 197 mg/dL (80-115); Potassium 4.2 mmol/L (3.5-5.1); Sodium 141 mmol/L (136-145)
[2020-07-11] MEDS: Enoxaparin Sodium 40 MG/0.4 ML SYRINGE SC SCH ×2 (09:11→20:46)
[2020-07-11] MEDS: Dexamethasone 4 mg/ml Vial SLOW IVP SCH (09:11)
[2020-07-11] MEDS: Ivermectin 3 MG TAB PO SCH (09:12)
[2020-07-11] MEDS: Colchicine 0.6 MG TAB PO SCH ×2 (09:12→20:46)
[2020-07-11] MEDS: Aspirin Chewable 81 MG TAB PO SCH (09:12)
[2020-07-11] MEDS: Benzonatate 100 MG CAP PO SCH ×3 (09:12→20:46)
[2020-07-11] MEDS: methylPREDNISolone Sod Succ/PF 125 MG in Sodium Chloride 0.9% 250 ML 250 ML IVPB SCH (11:15)
[2020-07-11] MEDS: Azithromycin 500 MG in Sodium Chloride 0.9% 250 ML 250 ML IVPB SCH (11:17)
[2020-07-11] MEDS: cefTRIAXone\\ROCEPHIN 1 GM in Sodium Chloride 0.9% 100 ML IVPB SCH (11:17)
[2020-07-11] MEDS: Atorvastatin Calcium 10 MG TAB PO SCH (20:46)
[2020-07-11] MEDS: Lantus 1000 UNITS/10 ML VIAL SC SCH (20:50)
[2020-07-12] MEDS: Albuterol 200 PUFF (6.7GM INHALER) INH SCH ×6 (02:33→20:51)
[2020-07-12 05:17] LABS: #Basophils 0.1 thou/uL (0.0-0.2); #Lymphocytes 0.4 thou/uL (1.20-3.40); #Monocytes 0.5 thou/uL (0.11-0.59); #Neutrophils 4.7 thou/uL (1.40-6.50); %Basophils 1.9 % (0.0-1.0); %Eosinophils 0.3 % (0.0-10.0); %Lymphocytes 6.8 % (21.0-51.0); %Monocytes 8.5 % (0.0-10.0); %Neutrophils 82.5 % (42.0-75.0); Hemoglobin 12.8 g/dL (12.0-16.0); Mean Corpuscular HGB CONC 33.1 g/dL (32.0-36.0); Mean Corpuscular Hemoglobin 31.9 pg (27.0-31.0); Mean Corpuscular Volume 96.2 fL (78.0-98.0); Platelet Count 200 thou/uL (130-400); RBC Distribution Width 11.5 % (11.5-14.5); Red Blood Cell (RBC) Count 4.01 mill/uL (4.20-5.40); White Blood Cell (WBC) Count 5.7 thou/uL (4.8-10.8)
[2020-07-12 05:44] LABS: Anion Gap 12 mmol/L (10-20); BUN (Urea Nitrogen) 22 mg/dL (9.8-20.1); CRP (Inflammatory) 2.13 mg/dL (= or < 0.5); Calc. Creatinine Clearance 78 mL/min (70-130); Calcium 8.6 mg/dL (7.8-10.44); Carbon Dioxide 21 mmol/L (23-31); Chloride 112 mmol/L (98-107); Glucose 210 mg/dL (80-115); Potassium 3.7 mmol/L (3.5-5.1); Sodium 141 mmol/L (136-145)
[2020-07-12] MEDS: Insulin Regular 300 UNITS/3 ML VIAL SC PRN (06:00)
[2020-07-12] MEDS: Benzonatate 100 MG CAP PO SCH ×3 (09:36→20:51)
[2020-07-12] MEDS: Aspirin Chewable 81 MG TAB PO SCH (09:36)
[2020-07-12] MEDS: Ivermectin 3 MG TAB PO SCH (09:36)
[2020-07-12] MEDS: Colchicine 0.6 MG TAB PO SCH ×2 (09:36→20:51)
[2020-07-12] MEDS: Enoxaparin Sodium 40 MG/0.4 ML SYRINGE SC SCH ×2 (09:36→20:51)
[2020-07-12] MEDS: Azithromycin 500 MG in Sodium Chloride 0.9% 250 ML 250 ML IVPB SCH (13:44)
[2020-07-12] MEDS: methylPREDNISolone Sod Succ/PF 125 MG in Sodium Chloride 0.9% 250 ML 250 ML IVPB SCH (13:44)
[2020-07-12] MEDS: cefTRIAXone\\ROCEPHIN 1 GM in Sodium Chloride 0.9% 100 ML IVPB SCH (15:27)
[2020-07-12] MEDS: Atorvastatin Calcium 10 MG TAB PO SCH (20:51)
[2020-07-12] MEDS: Lantus 1000 UNITS/10 ML VIAL SC SCH (20:58)
[2020-07-13] MEDS: Albuterol 200 PUFF (6.7GM INHALER) INH SCH ×6 (02:28→23:45)
[2020-07-13] MEDS: Lorazepam 2 MG/ML VIAL SLOW IVP PRN (02:31)
[2020-07-13 04:31] LABS: Anion Gap 16 mmol/L (10-20); BUN (Urea Nitrogen) 24 mg/dL (9.8-20.1); Calc. Creatinine Clearance 74 mL/min (70-130); Calcium 8.5 mg/dL (7.8-10.44); Carbon Dioxide 18 mmol/L (23-31); Chloride 112 mmol/L (98-107); Glucose 195 mg/dL (80-115); Potassium 3.9 mmol/L (3.5-5.1); Sodium 142 mmol/L (136-145)
[2020-07-13] MEDS: Insulin Regular 300 UNITS/3 ML VIAL SC PRN (05:37)
[2020-07-13] MEDS: Benzonatate 100 MG CAP PO SCH ×3 (09:24→20:17)
[2020-07-13] MEDS: Ivermectin 3 MG TAB PO SCH (09:24)
[2020-07-13] MEDS: Enoxaparin Sodium 40 MG/0.4 ML SYRINGE SC SCH ×2 (09:24→20:18)
[2020-07-13] MEDS: Aspirin Chewable 81 MG TAB PO SCH (09:24)
[2020-07-13] MEDS: Colchicine 0.6 MG TAB PO SCH ×2 (09:24→20:17)
[2020-07-13] MEDS: methylPREDNISolone Sod Succ/PF 125 MG in Sodium Chloride 0.9% 250 ML 250 ML IVPB SCH (10:57)
[2020-07-13] MEDS: cefTRIAXone\\ROCEPHIN 1 GM in Sodium Chloride 0.9% 100 ML IVPB SCH (10:58)
[2020-07-13] MEDS: ALPRAZolam 0.25 MG TAB PO PRN (11:56)
[2020-07-13] MEDS: Atorvastatin Calcium 10 MG TAB PO SCH (20:18)
[2020-07-13] MEDS: Lantus 1000 UNITS/10 ML VIAL SC SCH (20:19)
[2020-07-14 04:05] LABS: Anion Gap 11 mmol/L (10-20); BUN (Urea Nitrogen) 23 mg/dL (9.8-20.1); CRP (Inflammatory) 1.02 mg/dL (= or < 0.5); Calc. Creatinine Clearance 85 mL/min (70-130); Calcium 8.2 mg/dL (7.8-10.44); Carbon Dioxide 24 mmol/L (23-31); Chloride 111 mmol/L (98-107); Glucose 173 mg/dL (80-115); Potassium 3.4 mmol/L (3.5-5.1); Sodium 143 mmol/L (136-145)
[2020-07-14] MEDS: Albuterol 200 PUFF (6.7GM INHALER) INH SCH ×5 (04:16→17:28)
[2020-07-14] MEDS ORDERED: Electrolyte Replacement Protocol FS PRN ×2 (08:15→09:15)
[2020-07-14] MEDS: Enoxaparin Sodium 40 MG/0.4 ML SYRINGE SC SCH ×2 (09:10→21:25)
[2020-07-14] MEDS: Aspirin Chewable 81 MG TAB PO SCH (09:11)
[2020-07-14] MEDS: Benzonatate 100 MG CAP PO SCH ×3 (09:11→21:25)
[2020-07-14] MEDS: Colchicine 0.6 MG TAB PO SCH (09:11)
[2020-07-14] MEDS: methylPREDNISolone Sod Succ/PF 125 MG in Sodium Chloride 0.9% 250 ML 250 ML IVPB SCH (09:23)
[2020-07-14] MEDS ORDERED: Potassium Chloride 20 MEQ TAB PO SCH (09:30)
[2020-07-14] MEDS: cefTRIAXone\\ROCEPHIN 1 GM in Sodium Chloride 0.9% 100 ML IVPB SCH (12:42)
[2020-07-14] MEDS: Insulin Regular 300 UNITS/3 ML VIAL SC PRN ×2 (12:45→18:00)
[2020-07-14] MEDS: Loperamide HCl 1 MG/7.5 ML UDCUP PO PRN (17:37)
[2020-07-14] MEDS: Atorvastatin Calcium 10 MG TAB PO SCH (21:25)
[2020-07-14] MEDS: Lantus 1000 UNITS/10 ML VIAL SC SCH (21:27)
[2020-07-15] MEDS: Albuterol 200 PUFF (6.7GM INHALER) INH SCH ×7 (00:12→23:00)
[2020-07-15 04:20] LABS: Anion Gap 12 mmol/L (10-20); BUN (Urea Nitrogen) 21 mg/dL (9.8-20.1); CRP (Inflammatory) Less than 0.50 mg/dL (= or < 0.5); Calc. Creatinine Clearance 82 mL/min (70-130); Carbon Dioxide 23 mmol/L (23-31); Chloride 111 mmol/L (98-107); Glucose 173 mg/dL (80-115); Potassium 3.9 mmol/L (3.5-5.1); Sodium 142 mmol/L (136-145)
[2020-07-15] MEDS: Enoxaparin Sodium 40 MG/0.4 ML SYRINGE SC SCH ×2 (09:51→22:11)
[2020-07-15] MEDS: Aspirin Chewable 81 MG TAB PO SCH (09:51)
[2020-07-15] MEDS: Benzonatate 100 MG CAP PO SCH ×3 (09:51→22:11)
[2020-07-15] MEDS: methylPREDNISolone Sod Succ/PF 125 MG in Sodium Chloride 0.9% 250 ML 250 ML IVPB SCH (09:52)
[2020-07-15] MEDS: cefTRIAXone\\ROCEPHIN 1 GM in Sodium Chloride 0.9% 100 ML IVPB SCH (12:46)
[2020-07-15] MEDS: Atorvastatin Calcium 10 MG TAB PO SCH (22:11)
[2020-07-15] MEDS: Lantus 1000 UNITS/10 ML VIAL SC SCH (22:12)
[2020-07-16] MEDS: guaiFENesin/Codeine 200 mg/20 mg 10 ml Cup PO PRN (01:24)
[2020-07-16] MEDS: Albuterol 200 PUFF (6.7GM INHALER) INH SCH ×6 (03:00→22:10)
[2020-07-16] MEDS: Insulin Regular 300 UNITS/3 ML VIAL SC PRN (06:06)
[2020-07-16] MEDS: Aspirin Chewable 81 MG TAB PO SCH (07:34)
[2020-07-16] MEDS: Benzonatate 100 MG CAP PO SCH ×3 (07:34→20:07)
[2020-07-16] MEDS: Enoxaparin Sodium 40 MG/0.4 ML SYRINGE SC SCH ×2 (07:34→20:07)
[2020-07-16] MEDS: ALPRAZolam 0.25 MG TAB PO PRN ×2 (07:35→20:10)
[2020-07-16] MEDS: methylPREDNISolone Sod Succ/PF 125 MG in Sodium Chloride 0.9% 250 ML 250 ML IVPB SCH (14:07)
[2020-07-16] MEDS: cefTRIAXone\\ROCEPHIN 1 GM in Sodium Chloride 0.9% 100 ML IVPB SCH (14:07)
[2020-07-16] MEDS: Atorvastatin Calcium 10 MG TAB PO SCH (20:07)
[2020-07-16] MEDS: Lantus 1000 UNITS/10 ML VIAL SC SCH (20:11)
[2020-07-17] MEDS: Albuterol 200 PUFF (6.7GM INHALER) INH SCH ×4 (03:07→16:30)
[2020-07-17] MEDS: Benzonatate 100 MG CAP PO SCH ×3 (08:11→20:36)
[2020-07-17] MEDS: Aspirin Chewable 81 MG TAB PO SCH (08:11)
[2020-07-17] MEDS: Enoxaparin Sodium 40 MG/0.4 ML SYRINGE SC SCH ×2 (08:11→20:36)
[2020-07-17] MEDS: ALPRAZolam 0.25 MG TAB PO PRN ×2 (08:11→20:36)
[2020-07-17] MEDS ORDERED: Ivermectin 3 MG TAB PO SCH (15:20)
[2020-07-17] MEDS: methylPREDNISolone Sod Succ/PF 125 MG in Sodium Chloride 0.9% 250 ML 250 ML IVPB SCH (16:30)
[2020-07-17] MEDS: Atorvastatin Calcium 10 MG TAB PO SCH (20:36)
[2020-07-17] MEDS: Lantus 1000 UNITS/10 ML VIAL SC SCH (20:37)
[2020-07-18 04:32] LABS: Hemoglobin 13.6 g/dL (12.0-16.0); Lymphocytes 6 % (21-51); MDiff Complete? YES; Mean Corpuscular HGB CONC 34.1 g/dL (32.0-36.0); Mean Corpuscular Hemoglobin 32.5 pg (27.0-31.0); Mean Corpuscular Volume 95.4 fL (78.0-98.0); Mean Platelet Volume 9.5 fL (7.4-10.4); Monocytes 6 % (0-10); Neutrophil 88 % (42-75); Platelet Count 155 thou/uL (130-400); Platelet Morphology Comment Appears Adequate; RBC Distribution Width 11.2 % (11.5-14.5); RBC Morphology Normal; Red Blood Cell (RBC) Count 4.16 mill/uL (4.20-5.40)
[2020-07-18 04:37] LABS: Anion Gap 10 mmol/L (10-20); BUN (Urea Nitrogen) 26 mg/dL (9.8-20.1); Calc. Creatinine Clearance 84 mL/min (70-130); Calcium 8.5 mg/dL (7.8-10.44); Carbon Dioxide 26 mmol/L (23-31); Chloride 104 mmol/L (98-107); Glucose 227 mg/dL (80-115); Potassium 4.5 mmol/L (3.5-5.1); Sodium 135 mmol/L (136-145)
[2020-07-18] MEDS: Aspirin Chewable 81 MG TAB PO SCH (10:12)
[2020-07-18] MEDS: Benzonatate 100 MG CAP PO SCH ×3 (10:12→21:30)
[2020-07-18] MEDS: Ivermectin 3 MG TAB PO SCH (10:12)
[2020-07-18] MEDS: Enoxaparin Sodium 40 MG/0.4 ML SYRINGE SC SCH ×2 (10:12→21:30)
[2020-07-18] MEDS: Insulin Regular 300 UNITS/3 ML VIAL SC PRN ×3 (11:42→21:32)
[2020-07-18] MEDS: methylPREDNISolone Sod Succ/PF 125 MG in Sodium Chloride 0.9% 250 ML 250 ML IVPB SCH (12:48)
[2020-07-18] MEDS: Albuterol 200 PUFF (6.7GM INHALER) INH SCH ×5 (18:32→21:56)
[2020-07-18] MEDS: Atorvastatin Calcium 10 MG TAB PO SCH (21:30)
[2020-07-18] MEDS: Lantus 1000 UNITS/10 ML VIAL SC SCH (21:31)
[2020-07-18] MEDS: Lorazepam 2 MG/ML VIAL SLOW IVP PRN (23:30)
[2020-07-19] MEDS: Albuterol 200 PUFF (6.7GM INHALER) INH SCH ×6 (03:56→20:35)
[2020-07-19 04:26] LABS: Hemoglobin 13.7 g/dL (12.0-16.0); Mean Corpuscular HGB CONC 34.4 g/dL (32.0-36.0); Mean Corpuscular Hemoglobin 32.6 pg (27.0-31.0); Mean Corpuscular Volume 94.9 fL (78.0-98.0); Mean Platelet Volume 9.6 fL (7.4-10.4); Platelet Count 149 thou/uL (130-400); Red Blood Cell (RBC) Count 4.19 mill/uL (4.20-5.40); White Blood Cell (WBC) Count 14.3 thou/uL (4.8-10.8)
[2020-07-19 04:39] LABS: Anion Gap 14 mmol/L (10-20); BUN (Urea Nitrogen) 24 mg/dL (9.8-20.1); Calc. Creatinine Clearance 83 mL/min (70-130); Calcium 8.3 mg/dL (7.8-10.44); Carbon Dioxide 21 mmol/L (23-31); Chloride 104 mmol/L (98-107); Glucose 200 mg/dL (80-115); Potassium 4.8 mmol/L (3.5-5.1); Sodium 134 mmol/L (136-145)
[2020-07-19 04:58] LABS: Lymphocytes 3 % (21-51); MDiff Complete? YES; Monocytes 2 % (0-10); Neutrophil 95 % (42-75); Platelet Morphology Comment Appears Adequate
[2020-07-19] MEDS: Insulin Regular 300 UNITS/3 ML VIAL SC PRN ×4 (07:20→20:36)
[2020-07-19] MEDS: Benzonatate 100 MG CAP PO SCH ×3 (09:11→20:34)
[2020-07-19] MEDS: Zinc Sulfate 220 MG CAP PO SCH (09:11)
[2020-07-19] MEDS: Ivermectin 3 MG TAB PO SCH (09:11)
[2020-07-19] MEDS: Aspirin Chewable 81 MG TAB PO SCH (09:11)
[2020-07-19] MEDS: Ascorbic Acid 500 mg Chewable Tablet PO SCH (09:11)
[2020-07-19] MEDS: Enoxaparin Sodium 40 MG/0.4 ML SYRINGE SC SCH ×2 (09:11→20:33)
[2020-07-19] MEDS: methylPREDNISolone Sod Succ/PF 125 MG in Sodium Chloride 0.9% 250 ML 250 ML IVPB SCH (17:23)
[2020-07-19] MEDS: Atorvastatin Calcium 10 MG TAB PO SCH (20:33)
[2020-07-19] MEDS: Lantus 1000 UNITS/10 ML VIAL SC SCH (20:35)
[2020-07-20] MEDS: Albuterol 200 PUFF (6.7GM INHALER) INH SCH ×7 (00:21→22:06)
[2020-07-20] MEDS: ALPRAZolam 0.25 MG TAB PO PRN ×2 (00:21→22:05)
[2020-07-20 04:40] LABS: Anion Gap 11 mmol/L (10-20); BUN (Urea Nitrogen) 25 mg/dL (9.8-20.1); Calc. Creatinine Clearance 86 mL/min (70-130); Calcium 8.9 mg/dL (7.8-10.44); Carbon Dioxide 25 mmol/L (23-31); Chloride 104 mmol/L (98-107); Glucose 184 mg/dL (80-115); Potassium 4.4 mmol/L (3.5-5.1); Sodium 136 mmol/L (136-145)
[2020-07-20 04:43] LABS: Band 6 % (5-11); Hemoglobin 13.5 g/dL (12.0-16.0); Lymphocytes 4 % (21-51); MDiff Complete? YES; Mean Corpuscular HGB CONC 32.3 g/dL (32.0-36.0); Mean Corpuscular Hemoglobin 30.9 pg (27.0-31.0); Mean Corpuscular Volume 95.9 fL (78.0-98.0); Mean Platelet Volume 10.2 fL (7.4-10.4); Monocytes 1 % (0-10); Neutrophil 88 % (42-75); Platelet Count 161 thou/uL (130-400); Platelet Morphology Comment Appears Adequate; RBC Distribution Width 11.3 % (11.5-14.5); RBC Morphology Normal; Reactive Lymphocytes 1 % (0-10); Red Blood Cell (RBC) Count 4.36 mill/uL (4.20-5.40); White Blood Cell (WBC) Count 13.6 thou/uL (4.8-10.8)
[2020-07-20] MEDS: Insulin Regular 300 UNITS/3 ML VIAL SC PRN ×2 (07:05→20:40)
[2020-07-20] MEDS: Aspirin Chewable 81 MG TAB PO SCH (09:58)
[2020-07-20] MEDS: Ascorbic Acid 500 mg Chewable Tablet PO SCH (09:58)
[2020-07-20] MEDS: Enoxaparin Sodium 40 MG/0.4 ML SYRINGE SC SCH ×2 (09:58→20:45)
[2020-07-20] MEDS: Ivermectin 3 MG TAB PO SCH (09:58)
[2020-07-20] MEDS: Benzonatate 100 MG CAP PO SCH ×3 (09:59→20:46)
[2020-07-20] MEDS: Zinc Sulfate 220 MG CAP PO SCH (09:59)
[2020-07-20] MEDS: methylPREDNISolone Sod Succ/PF 125 MG in Sodium Chloride 0.9% 250 ML 250 ML IVPB SCH (11:47)
[2020-07-20] MEDS: Lantus 1000 UNITS/10 ML VIAL SC SCH (20:39)
[2020-07-20] MEDS: Atorvastatin Calcium 10 MG TAB PO SCH (20:46)
[2020-07-21] MEDS: Albuterol 200 PUFF (6.7GM INHALER) INH SCH ×6 (02:46→22:38)
[2020-07-21 05:13] LABS: Hemoglobin 12.7 g/dL (12.0-16.0); Lymphocytes 2 % (21-51); MDiff Complete? YES; Mean Corpuscular HGB CONC 31.6 g/dL (32.0-36.0); Mean Corpuscular Hemoglobin 30.4 pg (27.0-31.0); Mean Platelet Volume 10.3 fL (7.4-10.4); Monocytes 2 % (0-10); Neutrophil 96 % (42-75); Platelet Count 167 thou/uL (130-400); Platelet Morphology Comment Appears Adequate; RBC Distribution Width 11.4 % (11.5-14.5); White Blood Cell (WBC) Count 12.4 thou/uL (4.8-10.8)
[2020-07-21] MEDS: Insulin Regular 300 UNITS/3 ML VIAL SC PRN ×4 (05:17→21:05)
[2020-07-21 05:24] LABS: Anion Gap 11 mmol/L (10-20); BUN (Urea Nitrogen) 30 mg/dL (9.8-20.1); Calc. Creatinine Clearance 72 mL/min (70-130); Calcium 8.9 mg/dL (7.8-10.44); Carbon Dioxide 25 mmol/L (23-31); Chloride 103 mmol/L (98-107); Glucose 306 mg/dL (80-115); Potassium 4.7 mmol/L (3.5-5.1); Sodium 134 mmol/L (136-145)
[2020-07-21] MEDS: Ascorbic Acid 500 mg Chewable Tablet PO SCH (09:55)
[2020-07-21] MEDS: Aspirin Chewable 81 MG TAB PO SCH (09:55)
[2020-07-21] MEDS: Ivermectin 3 MG TAB PO SCH (09:56)
[2020-07-21] MEDS: Zinc Sulfate 220 MG CAP PO SCH (09:56)
[2020-07-21] MEDS: Enoxaparin Sodium 40 MG/0.4 ML SYRINGE SC SCH ×2 (09:56→21:13)
[2020-07-21] MEDS: Benzonatate 100 MG CAP PO SCH ×3 (09:56→21:14)
[2020-07-21] MEDS: methylPREDNISolone Sod Succ/PF 125 MG in Sodium Chloride 0.9% 250 ML 250 ML IVPB SCH (12:36)
[2020-07-21] MEDS: Lantus 1000 UNITS/10 ML VIAL SC SCH (21:06)
[2020-07-21] MEDS: ALPRAZolam 0.25 MG TAB PO PRN (21:14)
[2020-07-21] MEDS: Atorvastatin Calcium 10 MG TAB PO SCH (21:14)
[2020-07-22] MEDS: ALPRAZolam 0.25 MG TAB PO PRN (00:08)
[2020-07-22] MEDS: Albuterol 200 PUFF (6.7GM INHALER) INH SCH ×6 (02:09→22:31)
[2020-07-22 04:27] LABS: Band 3 % (5-11); Hemoglobin 13.4 g/dL (12.0-16.0); Lymphocytes 4 % (21-51); MDiff Complete? YES; Mean Corpuscular Hemoglobin 30.9 pg (27.0-31.0); Mean Corpuscular Volume 96.3 fL (78.0-98.0); Mean Platelet Volume 10.6 fL (7.4-10.4); Monocytes 2 % (0-10); Neutrophil 91 % (42-75); Platelet Count 170 thou/uL (130-400); RBC Distribution Width 11.6 % (11.5-14.5); Red Blood Cell (RBC) Count 4.36 mill/uL (4.20-5.40); White Blood Cell (WBC) Count 16.4 thou/uL (4.8-10.8)
[2020-07-22 04:38] LABS: Anion Gap 12 mmol/L (10-20); BUN (Urea Nitrogen) 32 mg/dL (9.8-20.1); Calc. Creatinine Clearance 75 mL/min (70-130); Calcium 8.9 mg/dL (7.8-10.44); Carbon Dioxide 25 mmol/L (23-31); Chloride 104 mmol/L (98-107); Glucose 221 mg/dL (80-115); Sodium 136 mmol/L (136-145)
[2020-07-22] MEDS: Insulin Regular 300 UNITS/3 ML VIAL SC PRN ×3 (05:51→21:26)
[2020-07-22] MEDS: Enoxaparin Sodium 40 MG/0.4 ML SYRINGE SC SCH ×2 (09:11→21:25)
[2020-07-22] MEDS: Ascorbic Acid 500 mg Chewable Tablet PO SCH (09:12)
[2020-07-22] MEDS: Aspirin Chewable 81 MG TAB PO SCH (09:12)
[2020-07-22] MEDS: Ivermectin 3 MG TAB PO SCH (09:12)
[2020-07-22] MEDS: Benzonatate 100 MG CAP PO SCH ×3 (09:12→21:24)
[2020-07-22] MEDS: Zinc Sulfate 220 MG CAP PO SCH (09:12)
[2020-07-22] MEDS: Lantus 1000 UNITS/10 ML VIAL SC SCH ×2 (09:14→21:26)
[2020-07-22] MEDS: methylPREDNISolone Sod Succ/PF 125 MG in Sodium Chloride 0.9% 250 ML 250 ML IVPB SCH (13:16)
[2020-07-22] MEDS: Atorvastatin Calcium 10 MG TAB PO SCH (21:25)
[2020-07-23] MEDS: ALPRAZolam 0.25 MG TAB PO PRN (02:49)
[2020-07-23] MEDS: Albuterol 200 PUFF (6.7GM INHALER) INH SCH ×6 (02:49→23:37)
[2020-07-23 04:14] LABS: Band 2 % (5-11); Hemoglobin 12.5 g/dL (12.0-16.0); Lymphocytes 4 % (21-51); MDiff Complete? YES; Mean Corpuscular Hemoglobin 30.8 pg (27.0-31.0); Mean Corpuscular Volume 96.2 fL (78.0-98.0); Monocytes 1 % (0-10); Neutrophil 93 % (42-75); Platelet Count 172 thou/uL (130-400); RBC Distribution Width 11.5 % (11.5-14.5); Red Blood Cell (RBC) Count 4.07 mill/uL (4.20-5.40); White Blood Cell (WBC) Count 13.1 thou/uL (4.8-10.8)
[2020-07-23 04:15] LABS: Anion Gap 11 mmol/L (10-20); BUN (Urea Nitrogen) 33 mg/dL (9.8-20.1); Calc. Creatinine Clearance 79 mL/min (70-130); Calcium 8.4 mg/dL (7.8-10.44); Carbon Dioxide 27 mmol/L (23-31); Chloride 103 mmol/L (98-107); Glucose 161 mg/dL (80-115); Potassium 4.5 mmol/L (3.5-5.1); Sodium 136 mmol/L (136-145)
[2020-07-23] MEDS: Ascorbic Acid 500 mg Chewable Tablet PO SCH (08:40)
[2020-07-23] MEDS: Benzonatate 100 MG CAP PO SCH ×3 (08:40→20:51)
[2020-07-23] MEDS: Zinc Sulfate 220 MG CAP PO SCH (08:40)
[2020-07-23] MEDS: Enoxaparin Sodium 40 MG/0.4 ML SYRINGE SC SCH ×2 (08:40→20:51)
[2020-07-23] MEDS: Ivermectin 3 MG TAB PO SCH (08:40)
[2020-07-23] MEDS: Aspirin Chewable 81 MG TAB PO SCH (08:40)
[2020-07-23] MEDS: Lantus 1000 UNITS/10 ML VIAL SC SCH ×2 (08:46→20:58)
[2020-07-23] MEDS: methylPREDNISolone Sod Succ/PF 125 MG in Sodium Chloride 0.9% 250 ML 250 ML IVPB SCH (12:31)
[2020-07-23] MEDS: Atorvastatin Calcium 10 MG TAB PO SCH (20:51)
[2020-07-23] MEDS: Insulin Regular 300 UNITS/3 ML VIAL SC PRN (21:05)
[2020-07-24] MEDS: Albuterol 200 PUFF (6.7GM INHALER) INH SCH ×6 (03:33→23:56)
[2020-07-24 04:17] LABS: Anion Gap 12 mmol/L (10-20); BUN (Urea Nitrogen) 31 mg/dL (9.8-20.1); Calc. Creatinine Clearance 78 mL/min (70-130); Calcium 8.4 mg/dL (7.8-10.44); Carbon Dioxide 27 mmol/L (23-31); Chloride 102 mmol/L (98-107); Glucose 170 mg/dL (80-115); Potassium 4.6 mmol/L (3.5-5.1); Sodium 136 mmol/L (136-145)
[2020-07-24 04:59] LABS: Band 4 % (5-11); Hemoglobin 11.7 g/dL (12.0-16.0); Lymphocytes 2 % (21-51); MDiff Complete? YES; Mean Corpuscular HGB CONC 32.5 g/dL (32.0-36.0); Mean Corpuscular Hemoglobin 31.1 pg (27.0-31.0); Mean Corpuscular Volume 95.6 fL (78.0-98.0); Mean Platelet Volume 10.2 fL (7.4-10.4); Monocytes 2 % (0-10); Neutrophil 92 % (42-75); Platelet Count 171 thou/uL (130-400); RBC Distribution Width 11.6 % (11.5-14.5); Red Blood Cell (RBC) Count 3.77 mill/uL (4.20-5.40); White Blood Cell (WBC) Count 10.1 thou/uL (4.8-10.8)
[2020-07-24] MEDS ORDERED: Vecuronium 10 MG VIAL ONE (09:13)
[2020-07-24] MEDS: Aspirin Chewable 81 MG TAB PO SCH (09:58)
[2020-07-24] MEDS: Benzonatate 100 MG CAP PO SCH ×3 (09:58→21:28)
[2020-07-24] MEDS: Zinc Sulfate 220 MG CAP PO SCH (09:58)
[2020-07-24] MEDS: Ascorbic Acid 500 mg Chewable Tablet PO SCH (09:58)
[2020-07-24] MEDS: Lantus 1000 UNITS/10 ML VIAL SC SCH ×2 (09:59→21:28)
[2020-07-24] MEDS: Enoxaparin Sodium 40 MG/0.4 ML SYRINGE SC SCH ×2 (09:59→21:27)
[2020-07-24] MEDS: Loperamide HCl 1 MG/7.5 ML UDCUP PO PRN (10:07)
[2020-07-24] MEDS: Ivermectin 3 MG TAB PO SCH (10:07)
[2020-07-24] MEDS: methylPREDNISolone Sod Succ/PF 125 MG in Sodium Chloride 0.9% 250 ML 250 ML IVPB SCH (14:28)
[2020-07-24] MEDS: Atorvastatin Calcium 10 MG TAB PO SCH (21:28)
[2020-07-24] MEDS: Loperamide HCl 2 MG CAP PO PRN (21:28)
[2020-07-25] MEDS: Albuterol 200 PUFF (6.7GM INHALER) INH SCH ×6 (02:55→23:16)
[2020-07-25 04:55] LABS: Anion Gap 13 mmol/L (10-20); BUN (Urea Nitrogen) 32 mg/dL (9.8-20.1); Calc. Creatinine Clearance 77 mL/min (70-130); Carbon Dioxide 22 mmol/L (23-31); Chloride 104 mmol/L (98-107); Glucose 240 mg/dL (80-115); Sodium 134 mmol/L (136-145)
[2020-07-25 05:12] LABS: Band 1 % (5-11); Hemoglobin 11.6 g/dL (12.0-16.0); MDiff Complete? YES; Mean Corpuscular HGB CONC 32.9 g/dL (32.0-36.0); Mean Corpuscular Hemoglobin 31.4 pg (27.0-31.0); Mean Corpuscular Volume 95.6 fL (78.0-98.0); Mean Platelet Volume 9.3 fL (7.4-10.4); Monocytes 2 % (0-10); Neutrophil 97 % (42-75); Platelet Count 152 thou/uL (130-400); RBC Distribution Width 11.7 % (11.5-14.5); Red Blood Cell (RBC) Count 3.69 mill/uL (4.20-5.40); White Blood Cell (WBC) Count 10.1 thou/uL (4.8-10.8)
[2020-07-25] MEDS: Insulin Regular 300 UNITS/3 ML VIAL SC PRN ×4 (06:19→17:36)
[2020-07-25] MEDS: Aspirin Chewable 81 MG TAB PO SCH (09:51)
[2020-07-25] MEDS: Zinc Sulfate 220 MG CAP PO SCH (09:51)
[2020-07-25] MEDS: Benzonatate 100 MG CAP PO SCH ×3 (09:52→20:43)
[2020-07-25] MEDS: Ivermectin 3 MG TAB PO SCH (09:52)
[2020-07-25] MEDS: Ascorbic Acid 500 mg Chewable Tablet PO SCH (09:52)
[2020-07-25] MEDS: Enoxaparin Sodium 40 MG/0.4 ML SYRINGE SC SCH ×2 (09:52→20:43)
[2020-07-25] MEDS: Lantus 1000 UNITS/10 ML VIAL SC SCH ×2 (09:53→20:49)
[2020-07-25] MEDS: methylPREDNISolone Sod Succ/PF 125 MG in Sodium Chloride 0.9% 250 ML 250 ML IVPB SCH (12:41)
[2020-07-25] MEDS: Atorvastatin Calcium 10 MG TAB PO SCH (20:43)
[2020-07-26] MEDS: Albuterol 200 PUFF (6.7GM INHALER) INH SCH ×6 (02:29→22:16)
[2020-07-26 04:46] LABS: Anion Gap 12 mmol/L (10-20); BUN (Urea Nitrogen) 30 mg/dL (9.8-20.1); Calc. Creatinine Clearance 93 mL/min (70-130); Calcium 7.9 mg/dL (7.8-10.44); Carbon Dioxide 24 mmol/L (23-31); Chloride 104 mmol/L (98-107); Glucose 107 mg/dL (80-115); Potassium 4.5 mmol/L (3.5-5.1); Sodium 135 mmol/L (136-145)
[2020-07-26 04:55] LABS: Band 8 % (5-11); Hemoglobin 11.1 g/dL (12.0-16.0); Lymphocytes 6 % (21-51); MDiff Complete? YES; Mean Corpuscular HGB CONC 33.5 g/dL (32.0-36.0); Mean Corpuscular Hemoglobin 32.2 pg (27.0-31.0); Mean Corpuscular Volume 96.1 fL (78.0-98.0); Mean Platelet Volume 9.2 fL (7.4-10.4); Neutrophil 86 % (42-75); Platelet Count 155 thou/uL (130-400); RBC Distribution Width 11.8 % (11.5-14.5); Red Blood Cell (RBC) Count 3.45 mill/uL (4.20-5.40)
[2020-07-26] MEDS: Ascorbic Acid 500 mg Chewable Tablet PO SCH (08:11)
[2020-07-26] MEDS: Enoxaparin Sodium 40 MG/0.4 ML SYRINGE SC SCH ×2 (08:12→21:01)
[2020-07-26] MEDS: Zinc Sulfate 220 MG CAP PO SCH (08:12)
[2020-07-26] MEDS: Benzonatate 100 MG CAP PO SCH ×3 (08:12→21:01)
[2020-07-26] MEDS: Aspirin Chewable 81 MG TAB PO SCH (08:12)
[2020-07-26] MEDS: Lantus 1000 UNITS/10 ML VIAL SC SCH ×2 (08:13→22:34)
[2020-07-26] MEDS: Ivermectin 3 MG TAB PO SCH (08:18)
[2020-07-26] MEDS: Insulin Regular 300 UNITS/3 ML VIAL SC PRN ×3 (12:08→21:34)
[2020-07-26] MEDS: methylPREDNISolone Sod Succ/PF 125 MG in Sodium Chloride 0.9% 250 ML 250 ML IVPB SCH (12:08)
[2020-07-26] MEDS: Atorvastatin Calcium 10 MG TAB PO SCH (21:01)
[2020-07-26] MEDS: Melatonin 3 MG TAB PO PRN (21:34)
[2020-07-27] MEDS: Albuterol 200 PUFF (6.7GM INHALER) INH SCH ×5 (02:13→23:31)
[2020-07-27 03:56] LABS: Anion Gap 11 mmol/L (10-20); BUN (Urea Nitrogen) 30 mg/dL (9.8-20.1); Calc. Creatinine Clearance 84 mL/min (70-130); Calcium 7.9 mg/dL (7.8-10.44); Carbon Dioxide 25 mmol/L (23-31); Chloride 102 mmol/L (98-107); Glucose 248 mg/dL (80-115); Potassium 4.7 mmol/L (3.5-5.1); Sodium 133 mmol/L (136-145)
[2020-07-27 04:30] LABS: Hemoglobin 10.6 g/dL (12.0-16.0); Mean Corpuscular HGB CONC 33.9 g/dL (32.0-36.0); Mean Corpuscular Hemoglobin 32.7 pg (27.0-31.0); Mean Corpuscular Volume 96.5 fL (78.0-98.0); Mean Platelet Volume 8.8 fL (7.4-10.4); Platelet Count 157 thou/uL (130-400); RBC Distribution Width 11.9 % (11.5-14.5); Red Blood Cell (RBC) Count 3.23 mill/uL (4.20-5.40); White Blood Cell (WBC) Count 9.8 thou/uL (4.8-10.8)
[2020-07-27 04:31] LABS: Lymphocytes 2 % (21-51); MDiff Complete? YES; Monocytes 4 % (0-10); Neutrophil 94 % (42-75)
[2020-07-27] MEDS: Insulin Regular 300 UNITS/3 ML VIAL SC PRN ×3 (06:23→17:14)
[2020-07-27] MEDS: metFORMIN XR 500 MG TAB PO SCH (08:53)
[2020-07-27] MEDS: Zinc Sulfate 220 MG CAP PO SCH (08:53)
[2020-07-27] MEDS: Ivermectin 3 MG TAB PO SCH (08:53)
[2020-07-27] MEDS: Benzonatate 100 MG CAP PO SCH ×3 (08:53→21:19)
[2020-07-27] MEDS: Enoxaparin Sodium 40 MG/0.4 ML SYRINGE SC SCH ×2 (08:54→21:19)
[2020-07-27] MEDS: Aspirin Chewable 81 MG TAB PO SCH (08:54)
[2020-07-27] MEDS: Ascorbic Acid 500 mg Chewable Tablet PO SCH (08:54)
[2020-07-27] MEDS: Lantus 1000 UNITS/10 ML VIAL SC SCH ×2 (08:55→21:24)
[2020-07-27] MEDS: methylPREDNISolone Sod Succ/PF 125 MG in Sodium Chloride 0.9% 250 ML 250 ML IVPB SCH (11:25)
[2020-07-27] MEDS: Melatonin 3 MG TAB PO PRN (21:19)
[2020-07-27] MEDS: Atorvastatin Calcium 10 MG TAB PO SCH (21:19)
[2020-07-28] MEDS: Albuterol 200 PUFF (6.7GM INHALER) INH SCH ×6 (03:59→21:44)
[2020-07-28 04:25] LABS: Hemoglobin 10.9 g/dL (12.0-16.0); Mean Corpuscular HGB CONC 32.7 g/dL (32.0-36.0); Mean Corpuscular Hemoglobin 32.4 pg (27.0-31.0); Mean Corpuscular Volume 99.2 fL (78.0-98.0); Platelet Count 149 thou/uL (130-400); RBC Distribution Width 12.4 % (11.5-14.5); Red Blood Cell (RBC) Count 3.37 mill/uL (4.20-5.40)
[2020-07-28 04:38] LABS: Anion Gap 14 mmol/L (10-20); BUN (Urea Nitrogen) 32 mg/dL (9.8-20.1); Calc. Creatinine Clearance 81 mL/min (70-130); Calcium 8.1 mg/dL (7.8-10.44); Carbon Dioxide 24 mmol/L (23-31); Chloride 103 mmol/L (98-107); Glucose 254 mg/dL (80-115); Potassium 4.8 mmol/L (3.5-5.1); Sodium 136 mmol/L (136-145)
[2020-07-28] MEDS: Insulin Regular 300 UNITS/3 ML VIAL SC PRN (05:44)
[2020-07-28 09:47] LABS: Band 1 % (5-11); Lymphocytes 2 % (21-51); MDiff Complete? YES; Monocytes 1 % (0-10); Neutrophil 96 % (42-75); RBC Morphology Normal
[2020-07-28] MEDS: Zinc Sulfate 220 MG CAP PO SCH (10:34)
[2020-07-28] MEDS: Ascorbic Acid 500 mg Chewable Tablet PO SCH (10:34)
[2020-07-28] MEDS: Benzonatate 100 MG CAP PO SCH ×3 (10:34→21:10)
[2020-07-28] MEDS: metFORMIN XR 500 MG TAB PO SCH (10:34)
[2020-07-28] MEDS: Aspirin Chewable 81 MG TAB PO SCH (10:35)
[2020-07-28] MEDS: Lantus 1000 UNITS/10 ML VIAL SC SCH ×2 (10:36→21:32)
[2020-07-28] MEDS: Enoxaparin Sodium 40 MG/0.4 ML SYRINGE SC SCH (10:42)
[2020-07-28] MEDS: Apixaban 2.5 MG TAB PO SCH (21:10)
[2020-07-28] MEDS: Atorvastatin Calcium 10 MG TAB PO SCH (21:10)
[2020-07-29 02:15] LABS: Actual Bicarbonate (HCO3a) 25.4 mEq/L (22-28); CO2 Tension 44.2 mmHg (35.0-45.0); Calcium, Ionized (arterial) 1.18 mmol/L (1.12-1.30); Carboxyhemoglobin (COHb) 0.7 gm% (0.0-3.0); Hemoglobin (Hb) 12.5 g/dL (12.0-16.0); pH, Arterial 7.38 (7.35-7.45)
[2020-07-29] MEDS ORDERED: Furosemide 40 MG/4 ML VIAL ONE (02:30)
[2020-07-29] MEDS ORDERED: Furosemide 40 MG/4 ML VIAL SLOW IVP SCH (02:45)
[2020-07-29] MEDS ORDERED: Propofol 1,000 MG/100 ML VIAL IV ONE (02:53)
[2020-07-29] MEDS ORDERED: Lorazepam 2 MG/ML VIAL ONE (03:33)
[2020-07-29] MEDS ORDERED: Fentanyl CADD 100 ML ONE (03:51)
[2020-07-29] MEDS ORDERED: DISCONTINUE PREVIOUS NARCOTIC PAIN MEDICATIONS AND BENZODIAZEPINES FS SCH (04:00)
[2020-07-29] MEDS ORDERED: Propofol BOLUS 1,000 MG/100 ML VIAL IV PRN (04:00)
[2020-07-29] MEDS ORDERED: Fentanyl BOLUS 250 ML IVPB PRN (04:00)
[2020-07-29] MEDS: Sodium Chloride 0.9% 1,000 ML IV SCH ×2 (04:00→20:13)
[2020-07-29] MEDS ORDERED: Propofol 1,000 MG/100 ML VIAL IV PRN (04:00)
[2020-07-29] MEDS ORDERED: Morphine 2 MG/ML VIAL SLOW IVP PRN (04:00)
[2020-07-29 04:13] LABS: Actual Bicarbonate (HCO3a) 24.7 mEq/L (22-28); CO2 Tension 45.2 mmHg (35.0-45.0); Calcium, Ionized (arterial) 1.14 mmol/L (1.12-1.30); Carboxyhemoglobin (COHb) 0.6 gm% (0.0-3.0); Hemoglobin (Hb) 12.4 g/dL (12.0-16.0); pH, Arterial 7.36 (7.35-7.45)
[2020-07-29 04:16] LABS: O2 Tension (PaO2), arterial 55.9 mmHg (> 70.0)
[2020-07-29 04:17] LABS: Puncture Site RRA
[2020-07-29 06:41] LABS: Hemoglobin 11.8 g/dL (12.0-16.0); Mean Corpuscular HGB CONC 33.5 g/dL (32.0-36.0); Mean Corpuscular Hemoglobin 32.6 pg (27.0-31.0); Mean Corpuscular Volume 97.2 fL (78.0-98.0); Mean Platelet Volume 8.3 fL (7.4-10.4); Platelet Count 152 thou/uL (130-400); RBC Distribution Width 12.8 % (11.5-14.5); Red Blood Cell (RBC) Count 3.62 mill/uL (4.20-5.40); White Blood Cell (WBC) Count 19.7 thou/uL (4.8-10.8)
[2020-07-29 06:57] LABS: Lymphocytes 2 % (21-51); MDiff Complete? YES; Monocytes 1 % (0-10); Neutrophil 97 % (42-75); Platelet Morphology Comment Appears Adequate
[2020-07-29 06:58] LABS: Anion Gap 15 mmol/L (10-20); BUN (Urea Nitrogen) 38 mg/dL (9.8-20.1); Calc. Creatinine Clearance 64 mL/min (70-130); Calcium 8.1 mg/dL (7.8-10.44); Carbon Dioxide 23 mmol/L (23-31); Chloride 104 mmol/L (98-107); Glucose 118 mg/dL (80-115); Potassium 4.2 mmol/L (3.5-5.1); Sodium 138 mmol/L (136-145)
[2020-07-29] MEDS: Albuterol 200 PUFF (6.7GM INHALER) INH SCH ×6 (07:54→21:52)
[2020-07-29] MEDS ORDERED: predniSONE 20 MG TAB PO SCH (08:00)
[2020-07-29] MEDS: Zinc Sulfate 220 MG CAP PO SCH (08:48)
[2020-07-29] MEDS: Aspirin Chewable 81 MG TAB PO SCH (08:48)
[2020-07-29] MEDS: Ascorbic Acid 500 mg Chewable Tablet PO SCH (08:48)
[2020-07-29] MEDS: Apixaban 2.5 MG TAB PO SCH (08:48)
[2020-07-29] MEDS: Benzonatate 100 MG CAP PO SCH ×3 (08:49→20:09)
[2020-07-29] MEDS: Lantus 1000 UNITS/10 ML VIAL SC SCH ×2 (08:49→22:33)
[2020-07-29] MEDS: metFORMIN XR 500 MG TAB PO SCH (08:50)
[2020-07-29] MEDS: Vecuronium 10 MG VIAL IV PRN ×3 (10:40→21:30)
[2020-07-29] MEDS: Lorazepam 2 MG/ML VIAL SLOW IVP PRN ×2 (11:15→18:36)
[2020-07-29] MEDS: Meropenem 2 GM in Sodium Chloride 0.9% 100 ML IVPB SCH ×2 (12:07→19:52)
[2020-07-29 13:34] LABS: Actual Bicarbonate (HCO3a) 26.9 mEq/L (22-28); Base Excess (BEa) -5.7 mEq/L (-2.0 to +3.0); CO2 Tension 102.6 mmHg (35.0-45.0); Calcium, Ionized (arterial) 1.15 mmol/L (1.12-1.30); Carboxyhemoglobin (COHb) 1.2 gm% (0.0-3.0); Hemoglobin (Hb) 11.9 g/dL (12.0-16.0); O2 Tension (PaO2), arterial 63.1 mmHg (> 70.0); Potassium - ABG Lab 4.62 mmol/L (3.70-5.30); Puncture Site LRA; pH, Arterial 7.04 (7.35-7.45)
[2020-07-29] MEDS ORDERED: Albumin 5% 500 ML ONE (13:34)
[2020-07-29] MEDS ORDERED: Norepinephrine 8 MG/0.9% NS 250 ML ONE (13:48)
[2020-07-29] MEDS: Norepinephrine 8 MG/0.9% NS 250 ML IVPB SCH (13:50)
[2020-07-29] MEDS ORDERED: Meropenem 2 GM in Admixture Fee 1 EACH IVPB SCH (14:00)
[2020-07-29 14:14] LABS: O2 Tension (PaO2), arterial 42.9 mmHg (> 70.0)
[2020-07-29 14:26] LABS: Actual Bicarbonate (HCO3a) 23.4 mEq/L (22-28); Base Excess (BEa) -3.5 mEq/L (-2.0 to +3.0); CO2 Tension 51.5 mmHg (35.0-45.0); Calcium, Ionized (arterial) 1.05 mmol/L (1.12-1.30); Carboxyhemoglobin (COHb) 0.6 gm% (0.0-3.0); Hemoglobin (Hb) 9.5 g/dL (12.0-16.0); Potassium - ABG Lab 4.31 mmol/L (3.70-5.30); pH, Arterial 7.28 (7.35-7.45)
[2020-07-29 14:40] LABS: O2 Tension (PaO2), arterial 50.3 mmHg (> 70.0)
[2020-07-29 14:41] LABS: ALV-art Gradient 348.775 mmHg (0-20); Puncture Site LRA
[2020-07-29] MEDS: Enoxaparin Sodium 60 MG/0.6 ML SYRINGE SC SCH (20:09)
[2020-07-29] MEDS: methylPREDNISolone Sod Succ 40 MG VIAL IVP SCH (20:10)
[2020-07-29] MEDS: Atorvastatin Calcium 10 MG TAB PO SCH (20:13)
[2020-07-30] MEDS ORDERED: Fentanyl CADD 100 ML ONE ×2 (00:52→20:58)
[2020-07-30] MEDS: Fentanyl CADD 100 ML IV SCH ×2 (01:02→21:16)
[2020-07-30] MEDS: Albuterol 200 PUFF (6.7GM INHALER) INH SCH ×6 (02:43→21:56)
[2020-07-30] MEDS: Norepinephrine 8 MG/0.9% NS 250 ML IVPB SCH (03:27)
[2020-07-30] MEDS: Vecuronium 10 MG VIAL IV PRN ×3 (03:27→17:03)
[2020-07-30] MEDS: Meropenem 2 GM in Sodium Chloride 0.9% 100 ML IVPB SCH ×3 (03:41→20:51)
[2020-07-30 05:05] LABS: Hemoglobin 7.9 g/dL (12.0-16.0); Mean Corpuscular HGB CONC 33.9 g/dL (32.0-36.0); Mean Corpuscular Hemoglobin 32.3 pg (27.0-31.0); Mean Corpuscular Volume 95.2 fL (78.0-98.0); Platelet Count 122 thou/uL (130-400); RBC Distribution Width 12.3 % (11.5-14.5); Red Blood Cell (RBC) Count 2.46 mill/uL (4.20-5.40); White Blood Cell (WBC) Count 11.9 thou/uL (4.8-10.8)
[2020-07-30 05:06] LABS: Phosphorus 3.3 mg/dL (2.3-4.7)
[2020-07-30 05:09] LABS: Anion Gap 18 mmol/L (10-20); BUN (Urea Nitrogen) 28 mg/dL (9.8-20.1); Calc. Creatinine Clearance 72 mL/min (70-130); Calcium 7.4 mg/dL (7.8-10.44); Carbon Dioxide 17 mmol/L (23-31); Chloride 110 mmol/L (98-107); Glucose 184 mg/dL (80-115); Potassium 4.1 mmol/L (3.5-5.1); Sodium 141 mmol/L (136-145)
[2020-07-30 05:26] LABS: Band 2 % (5-11); Lymphocytes 3 % (21-51); MDiff Complete? YES; Neutrophil 95 % (42-75)
[2020-07-30] MEDS ORDERED: Magnesium 2 GM/50 ML 2 GM in Premix Bag 1 BAG IVPB SCH (06:30)
[2020-07-30] MEDS: Enoxaparin Sodium 60 MG/0.6 ML SYRINGE SC SCH ×2 (08:52→21:30)
[2020-07-30] MEDS: Ascorbic Acid 500 mg Chewable Tablet PO SCH (08:53)
[2020-07-30] MEDS: Aspirin Chewable 81 MG TAB PO SCH (08:53)
[2020-07-30] MEDS: Zinc Sulfate 220 MG CAP PO SCH (08:53)
[2020-07-30] MEDS: methylPREDNISolone Sod Succ 40 MG VIAL IVP SCH ×2 (08:54→21:30)
[2020-07-30] MEDS: Lantus 1000 UNITS/10 ML VIAL SC SCH ×2 (08:54→21:32)
[2020-07-30] MEDS: metFORMIN XR 500 MG TAB PO SCH (09:04)
[2020-07-30] MEDS: Benzonatate 100 MG CAP PO SCH ×3 (09:04→21:29)
[2020-07-30] MEDS: Lorazepam 2 MG/ML VIAL SLOW IVP PRN ×2 (09:15→17:03)
[2020-07-30] MEDS ORDERED: Potassium Phosphate 15 MMOL in Sodium Chloride 0.9% 250 ML 250 ML IVPB PRN (13:13)
[2020-07-30] MEDS ORDERED: Magnesium 2 GM/50 ML 2 GM in Premix Bag 1 BAG IVPB PRN (13:18)
[2020-07-30] MEDS: Lactated Ringer's 1,000 ML IV SCH (13:59)
[2020-07-30] MEDS: Sodium Chloride 0.9% 1,000 ML IV SCH (17:44)
[2020-07-30 20:19] LABS: #Basophils 0.1 thou/uL (0.0-0.2); #Lymphocytes 0.3 thou/uL (1.20-3.40); #Monocytes 0.1 thou/uL (0.11-0.59); #Neutrophils 4.8 thou/uL (1.40-6.50); %Basophils 1.8 % (0.0-1.0); %Eosinophils 0.1 % (0.0-10.0); %Lymphocytes 5.6 % (21.0-51.0); %Monocytes 2.4 % (0.0-10.0); %Neutrophils 90.1 % (42.0-75.0); Hemoglobin 6.3 g/dL (12.0-16.0); Mean Corpuscular HGB CONC 35.1 g/dL (32.0-36.0); Mean Corpuscular Hemoglobin 33.3 pg (27.0-31.0); Mean Corpuscular Volume 94.9 fL (78.0-98.0); Mean Platelet Volume 8.8 fL (7.4-10.4); Platelet Count 83 thou/uL (130-400); RBC Distribution Width 12.9 % (11.5-14.5); Red Blood Cell (RBC) Count 1.89 mill/uL (4.20-5.40); White Blood Cell (WBC) Count 5.3 thou/uL (4.8-10.8)
[2020-07-30 20:39] LABS: Anion Gap 14 mmol/L (10-20); BUN (Urea Nitrogen) 21 mg/dL (9.8-20.1); Calc. Creatinine Clearance 79 mL/min (70-130); Calcium 7.3 mg/dL (7.8-10.44); Carbon Dioxide 18 mmol/L (23-31); Chloride 114 mmol/L (98-107); Glucose 124 mg/dL (80-115); Potassium 3.4 mmol/L (3.5-5.1); Sodium 143 mmol/L (136-145)
[2020-07-30] MEDS: Atorvastatin Calcium 10 MG TAB PO SCH (21:54)
[2020-07-31] MEDS: Albuterol 200 PUFF (6.7GM INHALER) INH SCH ×6 (02:23→22:15)
[2020-07-31] MEDS: Lactated Ringer's 1,000 ML IV SCH ×3 (03:02→19:57)
[2020-07-31] MEDS: Meropenem 2 GM in Sodium Chloride 0.9% 100 ML IVPB SCH ×3 (03:30→19:46)
[2020-07-31 05:17] LABS: Hemoglobin 8.5 g/dL (12.0-16.0); Mean Corpuscular HGB CONC 35.8 g/dL (32.0-36.0); Mean Corpuscular Hemoglobin 33.2 pg (27.0-31.0); Mean Corpuscular Volume 92.8 fL (78.0-98.0); Mean Platelet Volume 8.8 fL (7.4-10.4); Platelet Count 76 thou/uL (130-400); RBC Distribution Width 14.4 % (11.5-14.5); Red Blood Cell (RBC) Count 2.56 mill/uL (4.20-5.40); White Blood Cell (WBC) Count 5.5 thou/uL (4.8-10.8)
[2020-07-31 05:20] LABS: Anion Gap 12 mmol/L (10-20); BUN (Urea Nitrogen) 22 mg/dL (9.8-20.1); Calc. Creatinine Clearance 90 mL/min (70-130); Calcium 7.3 mg/dL (7.8-10.44); Carbon Dioxide 21 mmol/L (23-31); Chloride 114 mmol/L (98-107); Glucose 107 mg/dL (80-115); Magnesium 2.6 mg/dL (1.6-2.6); Potassium 3.1 mmol/L (3.5-5.1); Sodium 144 mmol/L (136-145)
[2020-07-31 05:34] LABS: Phosphorus 2.3 mg/dL (2.3-4.7)
[2020-07-31 05:37] LABS: Band 7 % (5-11); Hypochromia SLIGHT = 6-15 cells (100X) (0-5/hpf); MDiff Complete? YES; Neutrophil 93 % (42-75); Platelet Morphology Comment Appears Decreased
[2020-07-31] MEDS ORDERED: Potassium Chloride 20 MEQ TAB PO SCH (07:00)
[2020-07-31] MEDS: Vecuronium 10 MG VIAL IV PRN ×4 (07:05→19:46)
[2020-07-31] MEDS: Lorazepam 2 MG/ML VIAL SLOW IVP PRN ×4 (07:05→19:46)
[2020-07-31] MEDS ORDERED: Potassium Chloride 40 MEQ in Sodium Chloride 0.9% 250 ML 250 ML IVPB SCH (07:15)
[2020-07-31] MEDS: Enoxaparin Sodium 60 MG/0.6 ML SYRINGE SC SCH (10:02)
[2020-07-31] MEDS: Benzonatate 100 MG CAP PO SCH ×3 (10:03→20:16)
[2020-07-31] MEDS: metFORMIN XR 500 MG TAB PO SCH (10:06)
[2020-07-31] MEDS: methylPREDNISolone Sod Succ 40 MG VIAL IVP SCH ×2 (10:07→20:16)
[2020-07-31] MEDS: Lantus 1000 UNITS/10 ML VIAL SC SCH ×2 (10:07→20:17)
[2020-07-31 10:12] LABS: Actual Bicarbonate (HCO3a) 20.5 mEq/L (22-28); Base Excess (BEa) -1.5 mEq/L (-2.0 to +3.0); Calcium, Ionized (arterial) 1.06 mmol/L (1.12-1.30); Carboxyhemoglobin (COHb) 0.6 gm% (0.0-3.0); Hemoglobin (Hb) 7.9 g/dL (12.0-16.0); Potassium - ABG Lab 4.19 mmol/L (3.70-5.30); pH, Arterial 7.54 (7.35-7.45)
[2020-07-31 10:17] LABS: CO2 Tension 24.7 mmHg (35.0-45.0)
[2020-07-31 10:18] LABS: ALV-art Gradient 273.825 mmHg (0-20); O2 Tension (PaO2), arterial 51.8 mmHg (> 70.0); Puncture Site LRA
[2020-07-31] MEDS ORDERED: Pantoprazole 40 MG VIAL IVP SCH (12:00)
[2020-07-31] MEDS: Aspirin Chewable 81 MG TAB PO SCH (12:36)
[2020-07-31] MEDS: Ascorbic Acid 500 mg Chewable Tablet PO SCH (12:36)
[2020-07-31] MEDS: Zinc Sulfate 220 MG CAP PO SCH (12:37)
[2020-07-31 13:10] LABS: #Basophils 0.1 thou/uL (0.0-0.2); #Lymphocytes 0.1 thou/uL (1.20-3.40); #Monocytes 0.2 thou/uL (0.11-0.59); #Neutrophils 5.5 thou/uL (1.40-6.50); %Basophils 1.2 % (0.0-1.0); %Eosinophils 0.1 % (0.0-10.0); %Lymphocytes 2.1 % (21.0-51.0); %Monocytes 2.7 % (0.0-10.0); %Neutrophils 93.9 % (42.0-75.0); Hemoglobin 8.4 g/dL (12.0-16.0); Mean Corpuscular HGB CONC 33.8 g/dL (32.0-36.0); Mean Corpuscular Hemoglobin 31.3 pg (27.0-31.0); Mean Corpuscular Volume 92.6 fL (78.0-98.0); Mean Platelet Volume 8.3 fL (7.4-10.4); Platelet Count 75 thou/uL (130-400); RBC Distribution Width 15.2 % (11.5-14.5); Red Blood Cell (RBC) Count 2.68 mill/uL (4.20-5.40); White Blood Cell (WBC) Count 5.9 thou/uL (4.8-10.8)
[2020-07-31 13:22] LABS: D-Dimer Test Less than 0.27 *mcg/mL (0.27-0.43); INR-International Normal Ratio 1.2; PTT 38.4 sec (22.9-36.1); Potassium 4.2 mmol/L (3.5-5.1); Prothrombin Time 15.8 sec (12.0-14.7)
[2020-07-31 13:25] LABS: Fibrinogen 323 mg/dL (253-463)
[2020-07-31] MEDS: Atorvastatin Calcium 10 MG TAB PO SCH (20:16)
[2020-07-31] MEDS: Pantoprazole 40 MG VIAL IVP SCH (20:16)
[2020-08-01] MEDS: Lorazepam 2 MG/ML VIAL SLOW IVP PRN ×3 (00:46→09:55)
[2020-08-01] MEDS: Vecuronium 10 MG VIAL IV PRN ×3 (00:46→09:55)
[2020-08-01] MEDS ORDERED: Fentanyl CADD 100 ML ONE (02:21)
[2020-08-01] MEDS: Fentanyl CADD 100 ML IV SCH (02:22)
[2020-08-01] MEDS: Meropenem 2 GM in Sodium Chloride 0.9% 100 ML IVPB SCH ×3 (03:51→19:34)
[2020-08-01] MEDS: Albuterol 200 PUFF (6.7GM INHALER) INH SCH ×6 (04:19→22:26)
[2020-08-01 04:40] LABS: Hemoglobin 8.4 g/dL (12.0-16.0); Mean Corpuscular HGB CONC 34.5 g/dL (32.0-36.0); Mean Corpuscular Hemoglobin 31.9 pg (27.0-31.0); Mean Corpuscular Volume 92.5 fL (78.0-98.0); Platelet Count 70 thou/uL (130-400); RBC Distribution Width 15.8 % (11.5-14.5); Red Blood Cell (RBC) Count 2.62 mill/uL (4.20-5.40); White Blood Cell (WBC) Count 4.6 thou/uL (4.8-10.8)
[2020-08-01 04:49] LABS: Anion Gap 10 mmol/L (10-20); BUN (Urea Nitrogen) 21 mg/dL (9.8-20.1); Calc. Creatinine Clearance 98 mL/min (70-130); Calcium 7.7 mg/dL (7.8-10.44); Carbon Dioxide 19 mmol/L (23-31); Chloride 116 mmol/L (98-107); Glucose 140 mg/dL (80-115); Phosphorus 2.4 mg/dL (2.3-4.7); Potassium 3.9 mmol/L (3.5-5.1); Sodium 141 mmol/L (136-145)
[2020-08-01 05:06] LABS: Lymphocytes 1 % (21-51); MDiff Complete? YES; Monocytes 1 % (0-10); Neutrophil 98 % (42-75); Platelet Morphology Comment Appears Decreased
[2020-08-01] MEDS ORDERED: Pantoprazole 40 MG VIAL IVP SCH (09:00)
[2020-08-01] MEDS: methylPREDNISolone Sod Succ 40 MG VIAL IVP SCH ×2 (09:00→20:28)
[2020-08-01] MEDS: Pantoprazole 40 MG VIAL IVP SCH ×2 (09:00→20:28)
[2020-08-01] MEDS: Benzonatate 100 MG CAP PO SCH (09:27)
[2020-08-01] MEDS: Zinc Sulfate 220 MG CAP PO SCH (11:27)
[2020-08-01] MEDS: Ascorbic Acid 500 mg Chewable Tablet PO SCH (11:27)
[2020-08-01] MEDS: Lantus 1000 UNITS/10 ML VIAL SC SCH ×2 (11:54→20:31)
[2020-08-01] MEDS: Lactated Ringer's 1,000 ML IV SCH (11:57)
[2020-08-01] MEDS: Insulin Regular 300 UNITS/3 ML VIAL SC PRN (16:07)
[2020-08-01] MEDS: Atorvastatin Calcium 10 MG TAB PO SCH (20:28)
[2020-08-02] MEDS: Albuterol 200 PUFF (6.7GM INHALER) INH SCH ×6 (01:55→21:58)
[2020-08-02] MEDS: Meropenem 2 GM in Sodium Chloride 0.9% 100 ML IVPB SCH ×3 (03:38→18:14)
[2020-08-02 04:19] LABS: Anion Gap 11 mmol/L (10-20); BUN (Urea Nitrogen) 25 mg/dL (9.8-20.1); Calc. Creatinine Clearance 99 mL/min (70-130); Calcium 7.6 mg/dL (7.8-10.44); Carbon Dioxide 18 mmol/L (23-31); Chloride 111 mmol/L (98-107); Glucose 236 mg/dL (80-115); Sodium 136 mmol/L (136-145)
[2020-08-02] MEDS: Lactated Ringer's 1,000 ML IV SCH ×2 (05:02→18:20)
[2020-08-02 05:14] LABS: Hemoglobin 8.9 g/dL (12.0-16.0); Mean Corpuscular HGB CONC 34.5 g/dL (32.0-36.0); Mean Corpuscular Volume 92.7 fL (78.0-98.0); Mean Platelet Volume 8.8 fL (7.4-10.4); Platelet Count 56 thou/uL (130-400); RBC Distribution Width 15.3 % (11.5-14.5); Red Blood Cell (RBC) Count 2.78 mill/uL (4.20-5.40); White Blood Cell (WBC) Count 4.1 thou/uL (4.8-10.8)
[2020-08-02 05:15] LABS: Band 17 % (5-11); Lymphocytes 11 % (21-51); MDiff Complete? YES; Monocytes 4 % (0-10); Neutrophil 68 % (42-75); Platelet Morphology Comment Appears Decreased
[2020-08-02] MEDS: Lorazepam 2 MG/ML VIAL SLOW IVP PRN (05:21)
[2020-08-02] MEDS: Ascorbic Acid 500 mg Chewable Tablet PO SCH (10:09)
[2020-08-02] MEDS: methylPREDNISolone Sod Succ 40 MG VIAL IVP SCH ×2 (10:10→20:08)
[2020-08-02] MEDS: Lantus 1000 UNITS/10 ML VIAL SC SCH ×2 (10:10→20:51)
[2020-08-02] MEDS: Pantoprazole 40 MG VIAL IVP SCH ×2 (10:10→20:08)
[2020-08-02] MEDS: Zinc Sulfate 220 MG CAP PO SCH (10:10)
[2020-08-02 10:33] LABS: Actual Bicarbonate (HCO3a) 19.6 mEq/L (22-28); Base Excess (BEa) -3.9 mEq/L (-2.0 to +3.0); CO2 Tension 30.4 mmHg (35.0-45.0); Calcium, Ionized (arterial) 1.14 mmol/L (1.12-1.30); Carboxyhemoglobin (COHb) 0.2 gm% (0.0-3.0); Hemoglobin (Hb) 9.8 g/dL (12.0-16.0); pH, Arterial 7.43 (7.35-7.45)
[2020-08-02 10:34] LABS: O2 Tension (PaO2), arterial 50.9 mmHg (> 70.0)
[2020-08-02 10:35] LABS: Puncture Site RRA
[2020-08-02] MEDS: Insulin Regular 300 UNITS/3 ML VIAL SC PRN ×3 (11:13→20:52)
[2020-08-02 16:36] LABS: Heparin-Induced Ab (HITA) 0.059 OD (0.000-0.400)
[2020-08-02] MEDS: Atorvastatin Calcium 10 MG TAB PO SCH (20:08)
[2020-08-03] MEDS: Albuterol 200 PUFF (6.7GM INHALER) INH SCH ×6 (02:10→22:06)
[2020-08-03] MEDS: Meropenem 2 GM in Sodium Chloride 0.9% 100 ML IVPB SCH ×3 (03:19→19:48)
[2020-08-03 04:32] LABS: Anion Gap 12 mmol/L (10-20); BUN (Urea Nitrogen) 20 mg/dL (9.8-20.1); Calc. Creatinine Clearance 103 mL/min (70-130); Calcium 7.6 mg/dL (7.8-10.44); Carbon Dioxide 18 mmol/L (23-31); Chloride 107 mmol/L (98-107); Glucose 205 mg/dL (80-115); Potassium 4.1 mmol/L (3.5-5.1); Sodium 133 mmol/L (136-145)
[2020-08-03] MEDS: Insulin Regular 300 UNITS/3 ML VIAL SC PRN ×2 (04:38→16:29)
[2020-08-03 04:46] LABS: Band 10 % (5-11); Hemoglobin 8.4 g/dL (12.0-16.0); Hypochromia SLIGHT = 6-15 cells (100X) (0-5/hpf); Lymphocytes 8 % (21-51); MDiff Complete? YES; Mean Corpuscular HGB CONC 33.9 g/dL (32.0-36.0); Mean Corpuscular Hemoglobin 32.1 pg (27.0-31.0); Mean Corpuscular Volume 94.7 fL (78.0-98.0); Mean Platelet Volume 8.8 fL (7.4-10.4); Monocytes 2 % (0-10); Neutrophil 80 % (42-75); Platelet Count 52 thou/uL (130-400); Platelet Morphology Comment Appears Decreased; RBC Distribution Width 15.6 % (11.5-14.5); Red Blood Cell (RBC) Count 2.62 mill/uL (4.20-5.40); White Blood Cell (WBC) Count 3.9 thou/uL (4.8-10.8)
[2020-08-03] MEDS ORDERED: Fentanyl CADD 100 ML ONE (08:05)
[2020-08-03] MEDS: Pantoprazole 40 MG VIAL IVP SCH ×2 (09:30→21:17)
[2020-08-03] MEDS: Lantus 1000 UNITS/10 ML VIAL SC SCH ×2 (09:30→21:18)
[2020-08-03] MEDS: Zinc Sulfate 220 MG CAP PO SCH (09:30)
[2020-08-03] MEDS: Ascorbic Acid 500 mg Chewable Tablet PO SCH (09:30)
[2020-08-03] MEDS: methylPREDNISolone Sod Succ 40 MG VIAL IVP SCH ×2 (09:30→21:17)
[2020-08-03] MEDS: Lactated Ringer's 1,000 ML IV SCH ×2 (09:46→23:51)
[2020-08-03] MEDS: Lorazepam 2 MG/ML VIAL SLOW IVP PRN (14:29)
[2020-08-03] MEDS: Atorvastatin Calcium 10 MG TAB PO SCH (21:17)
[2020-08-04] MEDS: Albuterol 200 PUFF (6.7GM INHALER) INH SCH ×6 (02:09→22:13)
[2020-08-04] MEDS: Meropenem 2 GM in Sodium Chloride 0.9% 100 ML IVPB SCH ×3 (02:59→19:59)
[2020-08-04 04:54] LABS: Anion Gap 9 mmol/L (10-20); BUN (Urea Nitrogen) 20 mg/dL (9.8-20.1); Calc. Creatinine Clearance 113 mL/min (70-130); Calcium 7.7 mg/dL (7.8-10.44); Carbon Dioxide 24 mmol/L (23-31); Chloride 104 mmol/L (98-107); Glucose 110 mg/dL (80-115); Potassium 4.2 mmol/L (3.5-5.1); Sodium 133 mmol/L (136-145)
[2020-08-04 05:08] LABS: Hemoglobin 9.4 g/dL (12.0-16.0); Mean Corpuscular HGB CONC 33.3 g/dL (32.0-36.0); Mean Corpuscular Hemoglobin 31.5 pg (27.0-31.0); Mean Corpuscular Volume 94.7 fL (78.0-98.0); Mean Platelet Volume 9.6 fL (7.4-10.4); Platelet Count 52 thou/uL (130-400); RBC Distribution Width 15.6 % (11.5-14.5); Red Blood Cell (RBC) Count 2.97 mill/uL (4.20-5.40); White Blood Cell (WBC) Count 4.4 thou/uL (4.8-10.8)
[2020-08-04 05:11] LABS: Lymphocytes 1 % (21-51); MDiff Complete? YES; Monocytes 2 % (0-10); Neutrophil 97 % (42-75); Platelet Morphology Comment Appears Decreased
[2020-08-04] MEDS: Ascorbic Acid 500 mg Chewable Tablet PO SCH (08:43)
[2020-08-04] MEDS: Lantus 1000 UNITS/10 ML VIAL SC SCH ×2 (08:43→22:29)
[2020-08-04] MEDS: Zinc Sulfate 220 MG CAP PO SCH (08:43)
[2020-08-04] MEDS: methylPREDNISolone Sod Succ 40 MG VIAL IVP SCH ×2 (08:44→22:29)
[2020-08-04] MEDS: Pantoprazole 40 MG VIAL IVP SCH (08:44)
[2020-08-04] MEDS: Sodium Chloride 0.45% 1,000 ML IV SCH (12:00)
[2020-08-04] MEDS: Fluconazole In NaCl,Iso-Osm 100 MG, Admixture Fee 1 EACH in Premix Bag 1 BAG IVPB SCH (12:02)
[2020-08-04] MEDS ORDERED: Fentanyl CADD 100 ML ONE (16:39)
[2020-08-04] MEDS: Lorazepam 2 MG/ML VIAL SLOW IVP PRN (16:54)
[2020-08-04] MEDS: Pantoprazole 40 MG GRANULES PACKET PER TUBE SCH (22:29)
[2020-08-04] MEDS: Atorvastatin Calcium 10 MG TAB PO SCH (22:29)
[2020-08-05] MEDS: Insulin Regular 300 UNITS/3 ML VIAL SC PRN ×3 (00:58→16:02)
[2020-08-05] MEDS: Sodium Chloride 0.45% 1,000 ML IV SCH ×3 (00:59→17:39)
[2020-08-05] MEDS: Albuterol 200 PUFF (6.7GM INHALER) INH SCH ×6 (02:20→23:05)
[2020-08-05] MEDS: Meropenem 2 GM in Sodium Chloride 0.9% 100 ML IVPB SCH ×3 (03:30→20:12)
[2020-08-05 07:14] LABS: Anion Gap 12 mmol/L (10-20); BUN (Urea Nitrogen) 20 mg/dL (9.8-20.1); Calc. Creatinine Clearance 117 mL/min (70-130); Calcium 7.5 mg/dL (7.8-10.44); Carbon Dioxide 20 mmol/L (23-31); Chloride 106 mmol/L (98-107); Glucose 186 mg/dL (80-115); Magnesium 1.9 mg/dL (1.6-2.6); Sodium 134 mmol/L (136-145)
[2020-08-05 07:35] LABS: Anisocytosis SLIGHT = 6-15 cells (100X) (0-5/hpf); Band 5 % (5-11); Hemoglobin 10.3 g/dL (12.0-16.0); Hypochromia SLIGHT = 6-15 cells (100X) (0-5/hpf); Lymphocytes 4 % (21-51); MDiff Complete? YES; Mean Corpuscular HGB CONC 34.8 g/dL (32.0-36.0); Mean Corpuscular Hemoglobin 32.6 pg (27.0-31.0); Mean Corpuscular Volume 93.9 fL (78.0-98.0); Mean Platelet Volume 9.3 fL (7.4-10.4); Monocytes 4 % (0-10); Neutrophil 87 % (42-75); Platelet Count 61 thou/uL (130-400); Platelet Morphology Comment Appears Decreased; RBC Distribution Width 15.9 % (11.5-14.5); Red Blood Cell (RBC) Count 3.15 mill/uL (4.20-5.40); Tear Drops SLIGHT = 2-5 cells (100X) (0-1/hpf); White Blood Cell (WBC) Count 5.2 thou/uL (4.8-10.8)
[2020-08-05] MEDS ORDERED: Magnesium 2 GM/50 ML 2 GM in Premix Bag 1 BAG IVPB SCH (08:00)
[2020-08-05] MEDS: Ascorbic Acid 500 mg Chewable Tablet PO SCH (09:19)
[2020-08-05] MEDS: Pantoprazole 40 MG GRANULES PACKET PER TUBE SCH ×2 (09:19→21:26)
[2020-08-05] MEDS: methylPREDNISolone Sod Succ 40 MG VIAL IVP SCH ×2 (09:19→21:26)
[2020-08-05] MEDS: Zinc Sulfate 220 MG CAP PO SCH (09:19)
[2020-08-05] MEDS: Lantus 1000 UNITS/10 ML VIAL SC SCH ×2 (09:21→21:28)
[2020-08-05] MEDS: Lorazepam 2 MG/ML VIAL SLOW IVP PRN (10:24)
[2020-08-05] MEDS: Scopolamine 1.5 mg/72 hour Patch TOP SCH (11:41)
[2020-08-05] MEDS: Fluconazole In NaCl,Iso-Osm 100 MG, Admixture Fee 1 EACH in Premix Bag 1 BAG IVPB SCH (11:41)
[2020-08-05] MEDS: Atorvastatin Calcium 10 MG TAB PO SCH (21:52)
[2020-08-06] MEDS: Albuterol 200 PUFF (6.7GM INHALER) INH SCH ×6 (02:11→22:58)
[2020-08-06] MEDS: Insulin Regular 300 UNITS/3 ML VIAL SC PRN ×2 (03:56→18:49)
[2020-08-06] MEDS: Meropenem 2 GM in Sodium Chloride 0.9% 100 ML IVPB SCH ×3 (03:56→20:03)
[2020-08-06 04:29] LABS: Anion Gap 9 mmol/L (10-20); BUN (Urea Nitrogen) 22 mg/dL (9.8-20.1); Calc. Creatinine Clearance 109 mL/min (70-130); Calcium 7.8 mg/dL (7.8-10.44); Carbon Dioxide 23 mmol/L (23-31); Chloride 107 mmol/L (98-107); Glucose 257 mg/dL (80-115); Magnesium 2.2 mg/dL (1.6-2.6); Potassium 4.2 mmol/L (3.5-5.1); Sodium 135 mmol/L (136-145)
[2020-08-06 05:20] LABS: Anisocytosis SLIGHT = 6-15 cells (100X) (0-5/hpf); Band 20 % (5-11); Hemoglobin 11.1 g/dL (12.0-16.0); Lymphocytes 1 % (21-51); MDiff Complete? YES; Mean Corpuscular HGB CONC 34.6 g/dL (32.0-36.0); Mean Corpuscular Hemoglobin 32.9 pg (27.0-31.0); Mean Corpuscular Volume 95.1 fL (78.0-98.0); Mean Platelet Volume 9.9 fL (7.4-10.4); Neutrophil 79 % (42-75); Nucleated RBC 3 % (0); Platelet Count 56 thou/uL (130-400); Platelet Morphology Comment Appears Decreased; RBC Distribution Width 16.2 % (11.5-14.5); Red Blood Cell (RBC) Count 3.36 mill/uL (4.20-5.40)
[2020-08-06] MEDS: Ascorbic Acid 500 mg Chewable Tablet PO SCH (09:18)
[2020-08-06] MEDS: Pantoprazole 40 MG GRANULES PACKET PER TUBE SCH ×2 (09:18→21:36)
[2020-08-06] MEDS: methylPREDNISolone Sod Succ 40 MG VIAL IVP SCH ×2 (09:18→21:36)
[2020-08-06] MEDS: Zinc Sulfate 220 MG CAP PO SCH (09:18)
[2020-08-06] MEDS: Lantus 1000 UNITS/10 ML VIAL SC SCH ×2 (09:20→21:37)
[2020-08-06] MEDS: Fluconazole In NaCl,Iso-Osm 100 MG, Admixture Fee 1 EACH in Premix Bag 1 BAG IVPB SCH (12:40)
[2020-08-06] MEDS: Sodium Chloride 0.45% 1,000 ML IV SCH (16:30)
[2020-08-06] MEDS: Atorvastatin Calcium 10 MG TAB PO SCH (21:36)
[2020-08-06] MEDS: Fentanyl CADD 100 ML IV SCH (22:53)
[2020-08-07] MEDS: Albuterol 200 PUFF (6.7GM INHALER) INH SCH ×6 (03:43→22:40)
[2020-08-07] MEDS: Meropenem 2 GM in Sodium Chloride 0.9% 100 ML IVPB SCH ×3 (04:36→20:47)
[2020-08-07 04:38] LABS: Hemoglobin 11.4 g/dL (12.0-16.0); Mean Corpuscular HGB CONC 33.5 g/dL (32.0-36.0); Mean Corpuscular Hemoglobin 32.2 pg (27.0-31.0); Mean Corpuscular Volume 96.1 fL (78.0-98.0); Mean Platelet Volume 9.5 fL (7.4-10.4); Platelet Count 59 thou/uL (130-400); RBC Distribution Width 16.3 % (11.5-14.5); Red Blood Cell (RBC) Count 3.54 mill/uL (4.20-5.40); White Blood Cell (WBC) Count 3.9 thou/uL (4.8-10.8)
[2020-08-07] MEDS: Sodium Chloride 0.45% 1,000 ML IV SCH ×2 (04:38→19:08)
[2020-08-07] MEDS: Lorazepam 2 MG/ML VIAL SLOW IVP PRN ×3 (04:49→22:37)
[2020-08-07 04:52] LABS: Anion Gap 10 mmol/L (10-20); BUN (Urea Nitrogen) 19 mg/dL (9.8-20.1); Calc. Creatinine Clearance 127 mL/min (70-130); Calcium 7.7 mg/dL (7.8-10.44); Carbon Dioxide 22 mmol/L (23-31); Chloride 105 mmol/L (98-107); Glucose 151 mg/dL (80-115); Magnesium 2.1 mg/dL (1.6-2.6); Potassium 4.2 mmol/L (3.5-5.1); Sodium 133 mmol/L (136-145)
[2020-08-07 05:16] LABS: Band 8 % (5-11); Lymphocytes 10 % (21-51); MDiff Complete? YES; Monocytes 2 % (0-10); Neutrophil 80 % (42-75); Nucleated RBC 1 % (0); Platelet Morphology Comment Appears Decreased; Polychromasia SLIGHT = 2-3 cells (100X) (0-2/hpf)
[2020-08-07] MEDS: Zinc Sulfate 220 MG CAP PO SCH (08:55)
[2020-08-07] MEDS: methylPREDNISolone Sod Succ 40 MG VIAL IVP SCH ×2 (08:55→20:47)
[2020-08-07] MEDS: Ascorbic Acid 500 mg Chewable Tablet PO SCH (08:55)
[2020-08-07] MEDS: Pantoprazole 40 MG GRANULES PACKET PER TUBE SCH ×2 (08:56→20:47)
[2020-08-07] MEDS ORDERED: Lantus 1000 UNITS/10 ML VIAL SC SCH ×2 (09:00→10:00)
[2020-08-07] MEDS: Fluconazole In NaCl,Iso-Osm 100 MG, Admixture Fee 1 EACH in Premix Bag 1 BAG IVPB SCH (11:31)
[2020-08-07] MEDS: Norepinephrine 8 MG/0.9% NS 250 ML IVPB SCH (17:09)
[2020-08-07] MEDS: Atorvastatin Calcium 10 MG TAB PO SCH (20:47)
[2020-08-07] MEDS: Lantus 1000 UNITS/10 ML VIAL SC SCH (23:06)
[2020-08-08] MEDS: Albuterol 200 PUFF (6.7GM INHALER) INH SCH ×6 (02:31→23:28)
[2020-08-08] MEDS: Meropenem 2 GM in Sodium Chloride 0.9% 100 ML IVPB SCH ×3 (05:20→19:58)
[2020-08-08] MEDS: Insulin Regular 300 UNITS/3 ML VIAL SC PRN ×3 (06:11→21:10)
[2020-08-08 06:48] LABS: Anion Gap 12 mmol/L (10-20); BUN (Urea Nitrogen) 18 mg/dL (9.8-20.1); Calc. Creatinine Clearance 115 mL/min (70-130); Calcium 7.3 mg/dL (7.8-10.44); Carbon Dioxide 21 mmol/L (23-31); Chloride 104 mmol/L (98-107); Glucose 198 mg/dL (80-115); Potassium 4.7 mmol/L (3.5-5.1); Sodium 132 mmol/L (136-145)
[2020-08-08 06:59] LABS: Hemoglobin 10.8 g/dL (12.0-16.0); Mean Corpuscular HGB CONC 33.7 g/dL (32.0-36.0); Mean Corpuscular Hemoglobin 32.4 pg (27.0-31.0); Mean Corpuscular Volume 96.3 fL (78.0-98.0); Mean Platelet Volume 9.4 fL (7.4-10.4); Platelet Count 54 thou/uL (130-400); RBC Distribution Width 16.7 % (11.5-14.5); Red Blood Cell (RBC) Count 3.34 mill/uL (4.20-5.40); White Blood Cell (WBC) Count 4.1 thou/uL (4.8-10.8)
[2020-08-08] MEDS ORDERED: Fentanyl CADD 100 ML ONE (07:08)
[2020-08-08 07:37] LABS: Band 4 % (5-11); Lymphocytes 13 % (21-51); Metamyelocyte 1 % (0-0); Monocytes 2 % (0-10); Neutrophil 80 % (42-75); Nucleated RBC 2 % (0)
[2020-08-08 07:38] LABS: MDiff Complete? YES; Platelet Morphology Comment Appears Decreased; Polychromasia SLIGHT = 2-3 cells (100X) (0-2/hpf)
[2020-08-08 08:03] LABS: Actual Bicarbonate (HCO3a) 21.8 mEq/L (22-28); Base Excess (BEa) -1.9 mEq/L (-2.0 to +3.0); CO2 Tension 34.1 mmHg (35.0-45.0); Calcium, Ionized (arterial) 1.15 mmol/L (1.12-1.30); Carboxyhemoglobin (COHb) 1.5 gm% (0.0-3.0); Potassium - ABG Lab 4.14 mmol/L (3.70-5.30); pH, Arterial 7.42 (7.35-7.45)
[2020-08-08 08:26] LABS: O2 Tension (PaO2), arterial 44.4 mmHg (> 70.0); Puncture Site LRA
[2020-08-08 08:27] LABS: ALV-art Gradient 198.175 mmHg (0-20)
[2020-08-08] MEDS: Sodium Chloride 0.45% 1,000 ML IV SCH (08:54)
[2020-08-08] MEDS: methylPREDNISolone Sod Succ 40 MG VIAL IVP SCH ×2 (08:55→21:09)
[2020-08-08] MEDS: Lantus 1000 UNITS/10 ML VIAL SC SCH ×2 (08:57→21:09)
[2020-08-08] MEDS: Zinc Sulfate 220 MG CAP PO SCH (08:57)
[2020-08-08] MEDS: Ascorbic Acid 500 mg Chewable Tablet PO SCH (08:57)
[2020-08-08] MEDS: Pantoprazole 40 MG GRANULES PACKET PER TUBE SCH ×2 (08:58→21:09)
[2020-08-08] MEDS: Scopolamine 1.5 mg/72 hour Patch TOP SCH (12:11)
[2020-08-08] MEDS: Fluconazole In NaCl,Iso-Osm 100 MG, Admixture Fee 1 EACH in Premix Bag 1 BAG IVPB SCH (12:13)
[2020-08-08] MEDS: Atorvastatin Calcium 10 MG TAB PO SCH (21:09)
[2020-08-09] MEDS: Sodium Chloride 0.45% 1,000 ML IV SCH ×2 (00:59→12:38)
[2020-08-09] MEDS: Albuterol 200 PUFF (6.7GM INHALER) INH SCH ×6 (02:52→22:14)
[2020-08-09 04:15] LABS: Anion Gap 12 mmol/L (10-20); BUN (Urea Nitrogen) 17 mg/dL (9.8-20.1); Calc. Creatinine Clearance 123 mL/min (70-130); Calcium 7.9 mg/dL (7.8-10.44); Carbon Dioxide 24 mmol/L (23-31); Chloride 103 mmol/L (98-107); Glucose 140 mg/dL (80-115); Potassium 5.1 mmol/L (3.5-5.1); Sodium 134 mmol/L (136-145)
[2020-08-09 04:30] LABS: Anisocytosis SLIGHT = 6-15 cells (100X) (0-5/hpf); Band 22 % (5-11); Hemoglobin 11.9 g/dL (12.0-16.0); Lymphocytes 9 % (21-51); MDiff Complete? YES; Mean Corpuscular HGB CONC 33.8 g/dL (32.0-36.0); Mean Corpuscular Hemoglobin 32.7 pg (27.0-31.0); Mean Corpuscular Volume 96.6 fL (78.0-98.0); Mean Platelet Volume 8.9 fL (7.4-10.4); Monocytes 3 % (0-10); Neutrophil 65 % (42-75); Platelet Count 76 thou/uL (130-400); Platelet Morphology Comment Appears Decreased; Polychromasia SLIGHT = 2-3 cells (100X) (0-2/hpf); RBC Distribution Width 16.7 % (11.5-14.5); Reactive Lymphocytes 1 % (0-10); Red Blood Cell (RBC) Count 3.65 mill/uL (4.20-5.40); White Blood Cell (WBC) Count 4.3 thou/uL (4.8-10.8)
[2020-08-09] MEDS: Meropenem 2 GM in Sodium Chloride 0.9% 100 ML IVPB SCH (05:24)
[2020-08-09] MEDS ORDERED: Fentanyl CADD 100 ML ONE (07:41)
[2020-08-09] MEDS: Fentanyl CADD 100 ML IV SCH (07:55)
[2020-08-09] MEDS: Pantoprazole 40 MG GRANULES PACKET PER TUBE SCH ×2 (07:57→21:02)
[2020-08-09] MEDS: methylPREDNISolone Sod Succ 40 MG VIAL IVP SCH ×2 (07:57→21:01)
[2020-08-09] MEDS: Zinc Sulfate 220 MG CAP PO SCH (07:57)
[2020-08-09] MEDS: Ascorbic Acid 500 mg Chewable Tablet PO SCH (07:57)
[2020-08-09] MEDS: Lantus 1000 UNITS/10 ML VIAL SC SCH ×2 (07:58→21:01)
[2020-08-09] MEDS: Insulin Regular 300 UNITS/3 ML VIAL SC PRN ×2 (10:51→21:01)
[2020-08-09] MEDS: Norepinephrine 8 MG/0.9% NS 250 ML IVPB SCH (18:29)
[2020-08-09] MEDS: Atorvastatin Calcium 10 MG TAB PO SCH (21:01)
[2020-08-10] MEDS: Sodium Chloride 0.45% 1,000 ML IV SCH ×3 (01:44→17:55)
[2020-08-10] MEDS: Albuterol 200 PUFF (6.7GM INHALER) INH SCH ×6 (01:59→22:09)
[2020-08-10] MEDS: Insulin Regular 300 UNITS/3 ML VIAL SC PRN ×3 (05:19→16:57)
[2020-08-10 06:14] LABS: Hemoglobin 11.6 g/dL (12.0-16.0); Mean Corpuscular Hemoglobin 32.9 pg (27.0-31.0); Mean Corpuscular Volume 96.8 fL (78.0-98.0); Mean Platelet Volume 9.3 fL (7.4-10.4); Platelet Count 87 thou/uL (130-400); RBC Distribution Width 17.1 % (11.5-14.5); Red Blood Cell (RBC) Count 3.53 mill/uL (4.20-5.40); White Blood Cell (WBC) Count 3.2 thou/uL (4.8-10.8)
[2020-08-10 06:27] LABS: Anion Gap 11 mmol/L (10-20); BUN (Urea Nitrogen) 20 mg/dL (9.8-20.1); Calc. Creatinine Clearance 120 mL/min (70-130); Calcium 7.7 mg/dL (7.8-10.44); Carbon Dioxide 23 mmol/L (23-31); Chloride 102 mmol/L (98-107); Glucose 210 mg/dL (80-115); Potassium 4.4 mmol/L (3.5-5.1); Sodium 132 mmol/L (136-145)
[2020-08-10 06:39] LABS: Band 4 % (5-11); Lymphocytes 9 % (21-51); MDiff Complete? YES; Monocytes 5 % (0-10); Neutrophil 80 % (42-75); Platelet Morphology Comment Appears Decreased; RBC Morphology Normal; Reactive Lymphocytes 2 % (0-10)
[2020-08-10] MEDS: Zinc Sulfate 220 MG CAP PO SCH (09:08)
[2020-08-10] MEDS: Ascorbic Acid 500 mg Chewable Tablet PO SCH (09:08)
[2020-08-10] MEDS: Lantus 1000 UNITS/10 ML VIAL SC SCH ×2 (09:08→22:58)
[2020-08-10] MEDS: methylPREDNISolone Sod Succ 40 MG VIAL IVP SCH ×2 (09:08→21:32)
[2020-08-10] MEDS: Pantoprazole 40 MG GRANULES PACKET PER TUBE SCH ×2 (09:09→21:31)
[2020-08-10] MEDS ORDERED: Fentanyl CADD 100 ML ONE (10:52)
[2020-08-10] MEDS: Fentanyl CADD 100 ML IV SCH (10:56)
[2020-08-10] MEDS: Atorvastatin Calcium 10 MG TAB PO SCH (21:32)
[2020-08-11] MEDS: Albuterol 200 PUFF (6.7GM INHALER) INH SCH ×6 (02:06→21:59)
[2020-08-11 04:02] LABS: Hemoglobin 11.5 g/dL (12.0-16.0); Platelet Count 98 thou/uL (130-400)
[2020-08-11 04:12] LABS: Anion Gap 10 mmol/L (10-20); BUN (Urea Nitrogen) 21 mg/dL (9.8-20.1); Calc. Creatinine Clearance 126 mL/min (70-130); Calcium 7.8 mg/dL (7.8-10.44); Carbon Dioxide 25 mmol/L (23-31); Chloride 102 mmol/L (98-107); Glucose 172 mg/dL (80-115); Potassium 4.5 mmol/L (3.5-5.1); Sodium 132 mmol/L (136-145)
[2020-08-11 04:38] LABS: Band 12 % (5-11); Hemoglobin 11.7 g/dL (12.0-16.0); Lymphocytes 8 % (21-51); MDiff Complete? YES; Mean Corpuscular HGB CONC 33.5 g/dL (32.0-36.0); Mean Corpuscular Hemoglobin 32.7 pg (27.0-31.0); Mean Corpuscular Volume 97.6 fL (78.0-98.0); Mean Platelet Volume 8.8 fL (7.4-10.4); Metamyelocyte 1 % (0-0); Monocytes 2 % (0-10); Neutrophil 77 % (42-75); Platelet Count 101 thou/uL (130-400); Platelet Morphology Comment Appears Decreased; RBC Distribution Width 16.8 % (11.5-14.5); Red Blood Cell (RBC) Count 3.57 mill/uL (4.20-5.40); White Blood Cell (WBC) Count 3.8 thou/uL (4.8-10.8)
[2020-08-11] MEDS: Sodium Chloride 0.45% 1,000 ML IV SCH ×2 (05:50→21:10)
[2020-08-11] MEDS: Ascorbic Acid 500 mg Chewable Tablet PO SCH (09:14)
[2020-08-11] MEDS: Zinc Sulfate 220 MG CAP PO SCH (09:14)
[2020-08-11] MEDS: Enoxaparin Sodium 40 MG/0.4 ML SYRINGE SC SCH (09:14)
[2020-08-11] MEDS: methylPREDNISolone Sod Succ 40 MG VIAL IVP SCH ×2 (09:15→21:08)
[2020-08-11] MEDS: Pantoprazole 40 MG GRANULES PACKET PER TUBE SCH ×2 (09:15→21:10)
[2020-08-11] MEDS: Lantus 1000 UNITS/10 ML VIAL SC SCH ×2 (09:15→21:34)
[2020-08-11] MEDS: Insulin Regular 300 UNITS/3 ML VIAL SC PRN ×3 (09:18→21:34)
[2020-08-11] MEDS ORDERED: Fentanyl CADD 100 ML ONE (13:02)
[2020-08-11] MEDS: Scopolamine 1.5 mg/72 hour Patch TOP SCH (14:10)
[2020-08-11] MEDS ORDERED: CEFAZOLIN 2 GM in Premix Bag 1 BAG IVPB SCH (18:30)
[2020-08-11] MEDS: Atorvastatin Calcium 10 MG TAB PO SCH (21:10)
[2020-08-12] MEDS: Albuterol 200 PUFF (6.7GM INHALER) INH SCH ×6 (02:09→22:16)
[2020-08-12 04:00] LABS: Hemoglobin 12.4 g/dL (12.0-16.0); Mean Corpuscular HGB CONC 33.8 g/dL (32.0-36.0); Mean Corpuscular Hemoglobin 33.2 pg (27.0-31.0); Mean Corpuscular Volume 98.2 fL (78.0-98.0); Mean Platelet Volume 8.3 fL (7.4-10.4); Platelet Count 118 thou/uL (130-400); RBC Distribution Width 16.8 % (11.5-14.5); Red Blood Cell (RBC) Count 3.72 mill/uL (4.20-5.40); White Blood Cell (WBC) Count 4.3 thou/uL (4.8-10.8)
[2020-08-12 04:06] LABS: Anion Gap 9 mmol/L (10-20); BUN (Urea Nitrogen) 18 mg/dL (9.8-20.1); Calc. Creatinine Clearance 132 mL/min (70-130); Calcium 7.7 mg/dL (7.8-10.44); Carbon Dioxide 28 mmol/L (23-31); Chloride 102 mmol/L (98-107); Glucose 140 mg/dL (80-115); Potassium 4.3 mmol/L (3.5-5.1); Sodium 135 mmol/L (136-145)
[2020-08-12 04:23] LABS: Lymphocytes 8 % (21-51); MDiff Complete? YES; Metamyelocyte 1 % (0-0); Monocytes 4 % (0-10); Neutrophil 87 % (42-75); Platelet Morphology Comment Appears Decreased
[2020-08-12] MEDS: Norepinephrine 8 MG/0.9% NS 250 ML IVPB SCH (07:11)
[2020-08-12] MEDS: Pantoprazole 40 MG GRANULES PACKET PER TUBE SCH ×2 (11:15→20:53)
[2020-08-12] MEDS: Enoxaparin Sodium 40 MG/0.4 ML SYRINGE SC SCH (11:15)
[2020-08-12] MEDS: Lantus 1000 UNITS/10 ML VIAL SC SCH ×2 (11:15→21:18)
[2020-08-12] MEDS: Ascorbic Acid 500 mg Chewable Tablet PO SCH (11:15)
[2020-08-12] MEDS: Zinc Sulfate 220 MG CAP PO SCH (11:16)
[2020-08-12] MEDS: methylPREDNISolone Sod Succ 40 MG VIAL IVP SCH ×2 (11:19→20:53)
[2020-08-12] MEDS: Dextrose 5 %-0.45 % NaCl 1,000 ML IV SCH (11:20)
[2020-08-12] MEDS ORDERED: Bupivacaine PF 0.5% 30 ML VIAL ONE (17:00)
[2020-08-12] MEDS ORDERED: Lidocaine 1% w/Epinephrine 1:100K 20 ML VIAL ONE (17:00)
[2020-08-12] MEDS ORDERED: Sodium Chloride 0.9% 20 ML ONE (17:02)
[2020-08-12] MEDS ORDERED: Fentanyl 100 MCG/2 ML VIAL ONE (17:03)
[2020-08-12] MEDS ORDERED: Rocuronium Bromide 10 MG/ML (10ML VIAL) ONE (17:20)
[2020-08-12] MEDS ORDERED: ePHEDrine Sulfate 50 MG/10 ML VIAL ONE (17:20)
[2020-08-12] MEDS ORDERED: Ondansetron PF 4 MG/2 ML Vial ONE (17:20)
[2020-08-12] MEDS: Sodium Chloride 0.45% 1,000 ML IV SCH (20:16)
[2020-08-12] MEDS: Atorvastatin Calcium 10 MG TAB PO SCH (20:53)
[2020-08-13] MEDS: Albuterol 200 PUFF (6.7GM INHALER) INH SCH ×6 (02:13→22:52)
[2020-08-13] MEDS: Dextrose 5 %-0.45 % NaCl 1,000 ML IV SCH ×3 (03:45→21:04)
[2020-08-13] MEDS: Morphine 4 MG/ML VIAL SLOW IVP PRN ×5 (04:08→20:35)
[2020-08-13 05:15] LABS: Anion Gap 10 mmol/L (10-20); BUN (Urea Nitrogen) 10 mg/dL (9.8-20.1); Calc. Creatinine Clearance 122 mL/min (70-130); Calcium 7.9 mg/dL (7.8-10.44); Carbon Dioxide 29 mmol/L (23-31); Chloride 99 mmol/L (98-107); Glucose 201 mg/dL (80-115); Potassium 4.2 mmol/L (3.5-5.1); Sodium 134 mmol/L (136-145)
[2020-08-13 05:25] LABS: Band 16 % (5-11); Hemoglobin 11.1 g/dL (12.0-16.0); Lymphocytes 2 % (21-51); MDiff Complete? YES; Mean Corpuscular HGB CONC 31.3 g/dL (32.0-36.0); Mean Corpuscular Hemoglobin 30.9 pg (27.0-31.0); Mean Corpuscular Volume 98.8 fL (78.0-98.0); Mean Platelet Volume 8.5 fL (7.4-10.4); Monocytes 1 % (0-10); Neutrophil 81 % (42-75); Platelet Count 121 thou/uL (130-400); Platelet Morphology Comment Appears Decreased; RBC Distribution Width 16.9 % (11.5-14.5); Red Blood Cell (RBC) Count 3.59 mill/uL (4.20-5.40); White Blood Cell (WBC) Count 3.8 thou/uL (4.8-10.8)
[2020-08-13] MEDS: Insulin Regular 300 UNITS/3 ML VIAL SC PRN ×2 (06:45→10:37)
[2020-08-13] MEDS: Enoxaparin Sodium 40 MG/0.4 ML SYRINGE SC SCH (08:27)
[2020-08-13] MEDS: Zinc Sulfate 220 MG CAP PO SCH (08:28)
[2020-08-13] MEDS: Ascorbic Acid 500 mg Chewable Tablet PO SCH (08:28)
[2020-08-13] MEDS: methylPREDNISolone Sod Succ 40 MG VIAL IVP SCH ×2 (08:28→20:36)
[2020-08-13] MEDS: Pantoprazole 40 MG GRANULES PACKET PER TUBE SCH ×2 (08:28→20:36)
[2020-08-13] MEDS: Lantus 1000 UNITS/10 ML VIAL SC SCH ×3 (08:29→20:36)
[2020-08-13] MEDS: Lorazepam 2 MG/ML VIAL SLOW IVP PRN ×2 (09:00→21:04)
[2020-08-13] MEDS: guaiFENesin/Codeine 200 mg/20 mg 10 ml Cup PO SCH ×2 (13:50→17:22)
[2020-08-13] MEDS: Acetaminophen 325 MG TAB PO PRN (17:22)
[2020-08-13] MEDS: Melatonin 3 MG TAB PO PRN (20:35)
[2020-08-13] MEDS: Atorvastatin Calcium 10 MG TAB PO SCH (20:35)
[2020-08-14] MEDS: guaiFENesin/Codeine 200 mg/20 mg 10 ml Cup PO SCH ×4 (00:18→18:04)
[2020-08-14] MEDS: Albuterol 200 PUFF (6.7GM INHALER) INH SCH ×3 (02:19→10:27)
[2020-08-14] MEDS: Morphine 4 MG/ML VIAL SLOW IVP PRN ×3 (03:10→14:24)
[2020-08-14 04:59] LABS: Hemoglobin 11.1 g/dL (12.0-16.0); Mean Corpuscular HGB CONC 31.4 g/dL (32.0-36.0); Mean Corpuscular Hemoglobin 31.2 pg (27.0-31.0); Mean Corpuscular Volume 99.3 fL (78.0-98.0); Mean Platelet Volume 7.9 fL (7.4-10.4); Platelet Count 136 thou/uL (130-400); RBC Distribution Width 16.8 % (11.5-14.5); Red Blood Cell (RBC) Count 3.57 mill/uL (4.20-5.40); White Blood Cell (WBC) Count 4.4 thou/uL (4.8-10.8)
[2020-08-14 05:09] LABS: Anion Gap 11 mmol/L (10-20); BUN (Urea Nitrogen) 19 mg/dL (9.8-20.1); Calc. Creatinine Clearance 105 mL/min (70-130); Calcium 7.7 mg/dL (7.8-10.44); Carbon Dioxide 28 mmol/L (23-31); Chloride 100 mmol/L (98-107); Glucose 294 mg/dL (80-115); Potassium 3.9 mmol/L (3.5-5.1); Sodium 135 mmol/L (136-145)
[2020-08-14 05:18] LABS: Band 36 % (5-11); Lymphocytes 3 % (21-51); MDiff Complete? YES; Monocytes 6 % (0-10); Neutrophil 55 % (42-75); Platelet Morphology Comment Appears Adequate
[2020-08-14] MEDS: Insulin Regular 300 UNITS/3 ML VIAL SC PRN ×3 (07:00→16:03)
[2020-08-14] MEDS: Ascorbic Acid 500 mg Chewable Tablet PO SCH (09:37)
[2020-08-14] MEDS: Pantoprazole 40 MG GRANULES PACKET PER TUBE SCH ×2 (09:38→21:41)
[2020-08-14] MEDS: methylPREDNISolone Sod Succ 40 MG VIAL IVP SCH ×2 (09:38→21:41)
[2020-08-14] MEDS: Enoxaparin Sodium 40 MG/0.4 ML SYRINGE SC SCH ×2 (09:38→21:41)
[2020-08-14] MEDS: Zinc Sulfate 220 MG CAP PO SCH (09:38)
[2020-08-14] MEDS: Lantus 1000 UNITS/10 ML VIAL SC SCH ×2 (09:39→23:53)
[2020-08-14] MEDS: Acetaminophen 325 MG TAB PO PRN ×3 (09:47→22:06)
[2020-08-14 10:16] LABS: Bilirubin Negative (Negative); Blood, Urine 2+ (Negative); Clarity Clear (Clear); Glucose, Urine (Dipstick) 150 mg/dL (Negative); Ketone, Urine Negative (Negative); Leukocyte 25 Leu/uL (Negative); Nitrite 1+ (Negative); Protein, Urine (Dipstick) 50 mg/dL (Neg-Trace); Specific Gravity, Urine 1.014 (1.002-1.036); Squamous Epithelial 0-3 HPF (0-3)
[2020-08-14 10:17] LABS: Bacteria/HPF Rare-Few HPF (None Seen)
[2020-08-14 10:18] LABS: Urine Culture Reflex Yes Yes
[2020-08-14] MEDS ORDERED: Albumin 25% 100 ML ONE (11:47)
[2020-08-14] MEDS ORDERED: Albumin 25% 25 GM/100 ML BOT IVPB SCH (12:00)
[2020-08-14] MEDS: Scopolamine 1.5 mg/72 hour Patch TOP SCH (12:05)
[2020-08-14] MEDS ORDERED: Sodium Chloride 0.9% 1,000 ML IV SCH (12:15)
[2020-08-14] MEDS: Cefepime 2 GM in Sodium Chloride 0.9% 100 ML IVPB SCH (12:22)
[2020-08-14] MEDS: Vancomycin 1 GM in Premix Bag 1 BAG IVPB SCH (12:24)
[2020-08-14] MEDS: Dextrose 5 %-0.45 % NaCl 1,000 ML IV SCH (12:27)
[2020-08-14] MEDS: Micafungin 100 MG in Sodium Chloride 0.9% 100 ML IVPB SCH (12:32)
[2020-08-14] MEDS: Lorazepam 2 MG/ML VIAL SLOW IVP PRN ×2 (14:08→21:44)
[2020-08-14] MEDS: Sodium Chloride 0.9% 1,000 ML IV SCH ×2 (14:10→17:30)
[2020-08-14] MEDS: Albumin 25% 25 GM/100 ML BOT IVPB SCH (18:01)
[2020-08-14] MEDS: Atorvastatin Calcium 10 MG TAB PO SCH (21:41)
[2020-08-14] MEDS: Norepinephrine 8 MG/0.9% NS 250 ML IVPB SCH (22:01)
[2020-08-15] MEDS: Albumin 25% 25 GM/100 ML BOT IVPB SCH ×2 (00:01→05:27)
[2020-08-15] MEDS: Cefepime 2 GM in Sodium Chloride 0.9% 100 ML IVPB SCH ×2 (00:01→11:25)
[2020-08-15] MEDS: Sodium Chloride 0.9% 1,000 ML IV SCH ×2 (00:05→10:54)
[2020-08-15] MEDS: Vancomycin 1 GM in Premix Bag 1 BAG IVPB SCH ×2 (02:13→13:18)
[2020-08-15] MEDS: Morphine 4 MG/ML VIAL SLOW IVP PRN (02:34)
[2020-08-15 05:03] LABS: Anion Gap 11 mmol/L (10-20); BUN (Urea Nitrogen) 25 mg/dL (9.8-20.1); Calc. Creatinine Clearance 127 mL/min (70-130); Calcium 7.1 mg/dL (7.8-10.44); Carbon Dioxide 21 mmol/L (23-31); Chloride 110 mmol/L (98-107); Glucose 143 mg/dL (83-110); Potassium 2.7 mmol/L (3.5-5.1); Sodium 139 mmol/L (136-145)
[2020-08-15 05:06] LABS: White Blood Cell (WBC) Count 0.4 thou/uL (4.8-10.8)
[2020-08-15 05:18] LABS: Hemoglobin 9.6 g/dL (12.0-16.0); Hypochromia SLIGHT = 6-15 cells (100X) (0-5/hpf); MDiff Complete? YES; Mean Corpuscular HGB CONC 32.5 g/dL (32.0-36.0); Mean Corpuscular Hemoglobin 32.8 pg (27.0-31.0); Platelet Count 71 thou/uL (130-400); Platelet Morphology Comment Appears Decreased; Polychromasia SLIGHT = 2-3 cells (100X) (0-2/hpf); RBC Distribution Width 16.5 % (11.5-14.5); Red Blood Cell (RBC) Count 2.92 mill/uL (4.20-5.40)
[2020-08-15] MEDS: Potassium Chloride 40 MEQ in Premix Bag 1 BAG IVPB SCH ×2 (05:26→08:43)
[2020-08-15] MEDS: Norepinephrine 8 MG/0.9% NS 250 ML IVPB SCH ×3 (05:27→19:39)
[2020-08-15] MEDS: guaiFENesin/Codeine 200 mg/20 mg 10 ml Cup PO SCH ×4 (05:32→17:13)
[2020-08-15] MEDS: Lorazepam 2 MG/ML VIAL SLOW IVP PRN ×2 (07:57→10:59)
[2020-08-15] MEDS: Enoxaparin Sodium 40 MG/0.4 ML SYRINGE SC SCH ×2 (08:41→21:03)
[2020-08-15] MEDS: Ascorbic Acid 500 mg Chewable Tablet PO SCH (08:41)
[2020-08-15] MEDS: Pantoprazole 40 MG GRANULES PACKET PER TUBE SCH ×2 (08:42→21:03)
[2020-08-15] MEDS: Zinc Sulfate 220 MG CAP PO SCH (08:42)
[2020-08-15] MEDS: methylPREDNISolone Sod Succ 40 MG VIAL IVP SCH ×2 (08:45→21:03)
[2020-08-15] MEDS: Lantus 1000 UNITS/10 ML VIAL SC SCH ×2 (09:07→21:05)
[2020-08-15] MEDS: Acetaminophen 325 MG TAB PO PRN (13:33)
[2020-08-15] MEDS: Micafungin 100 MG in Sodium Chloride 0.9% 100 ML IVPB SCH (14:42)
[2020-08-15 15:40] LABS: Potassium 4.6 mmol/L (3.5-5.1)
[2020-08-15] MEDS: Insulin Regular 300 UNITS/3 ML VIAL SC PRN (15:59)
[2020-08-15] MEDS: Bisacodyl 10 MG SUPP PR SCH (18:03)
[2020-08-15] MEDS: Atorvastatin Calcium 10 MG TAB PO SCH (21:02)
[2020-08-15] MEDS: Senokot S 8.6-50 MG TAB PER TUBE SCH (21:02)
[2020-08-15] MEDS: Metoclopramide HCl 10 MG/2 ML VIAL IVP SCH (21:04)
[2020-08-16] MEDS: guaiFENesin/Codeine 200 mg/20 mg 10 ml Cup PO SCH ×4 (00:44→17:39)
[2020-08-16] MEDS: Vancomycin 1 GM in Premix Bag 1 BAG IVPB SCH (00:45)
[2020-08-16] MEDS: Cefepime 2 GM in Sodium Chloride 0.9% 100 ML IVPB SCH ×2 (00:45→12:06)
[2020-08-16 00:56] LABS: Vancomycin, Trough 22.5 ug/mL
[2020-08-16] MEDS: Bisacodyl 10 MG SUPP PR SCH ×3 (01:09→17:38)
[2020-08-16] MEDS: Norepinephrine 8 MG/0.9% NS 250 ML IVPB SCH ×2 (01:58→12:14)
[2020-08-16 04:10] LABS: Hemoglobin 9.2 g/dL (12.0-16.0); Mean Corpuscular HGB CONC 32.6 g/dL (32.0-36.0); Mean Corpuscular Hemoglobin 32.6 pg (27.0-31.0); Mean Platelet Volume 9.7 fL (7.4-10.4); Platelet Count 36 thou/uL (130-400); RBC Distribution Width 17.1 % (11.5-14.5); Red Blood Cell (RBC) Count 2.82 mill/uL (4.20-5.40); White Blood Cell (WBC) Count 3.1 thou/uL (4.8-10.8)
[2020-08-16 04:34] LABS: Anion Gap 12 mmol/L (10-20); BUN (Urea Nitrogen) 34 mg/dL (9.8-20.1); Calc. Creatinine Clearance 91 mL/min (70-130); Calcium 7.2 mg/dL (7.8-10.44); Carbon Dioxide 19 mmol/L (23-31); Chloride 115 mmol/L (98-107); Glucose 124 mg/dL (83-110); Potassium 4.2 mmol/L (3.5-5.1); Sodium 142 mmol/L (136-145)
[2020-08-16 04:41] LABS: Band 1 % (5-11); Lymphocytes 13 % (21-51); MDiff Complete? YES; Metamyelocyte 5 % (0-0); Monocytes 17 % (0-10); Neutrophil 64 % (42-75); Platelet Morphology Comment Appears Decreased
[2020-08-16] MEDS: Metoclopramide HCl 10 MG/2 ML VIAL IVP SCH ×3 (05:12→20:14)
[2020-08-16] MEDS: Senokot S 8.6-50 MG TAB PER TUBE SCH ×2 (09:54→20:17)
[2020-08-16] MEDS: Pantoprazole 40 MG GRANULES PACKET PER TUBE SCH ×2 (09:55→20:09)
[2020-08-16] MEDS: methylPREDNISolone Sod Succ 40 MG VIAL IVP SCH ×2 (09:55→20:09)
[2020-08-16] MEDS: Zinc Sulfate 220 MG CAP PO SCH (09:55)
[2020-08-16] MEDS: Ascorbic Acid 500 mg Chewable Tablet PO SCH (09:55)
[2020-08-16] MEDS: Lantus 1000 UNITS/10 ML VIAL SC SCH ×2 (09:56→20:08)
[2020-08-16] MEDS: Dextrose 50% Abboject 50 ML SYRINGE SLOW IVP PRN (10:47)
[2020-08-16] MEDS: Enoxaparin Sodium 40 MG/0.4 ML SYRINGE SC SCH (10:53)
[2020-08-16] MEDS: Vancomycin HCl 750 MG in Sodium Chloride 0.9% 250 ML 250 ML IVPB SCH (14:00)
[2020-08-16] MEDS: Micafungin 100 MG in Sodium Chloride 0.9% 100 ML IVPB SCH (14:52)
[2020-08-16] MEDS: Vecuronium 10 MG VIAL IV PRN ×3 (15:05→15:55)
[2020-08-16] MEDS ORDERED: Furosemide 20 MG/2 ML VIAL SLOW IVP SCH (17:00)
[2020-08-16] MEDS ORDERED: Polyethylene Glycol 3350 17 GM Packet PER TUBE SCH (17:00)
[2020-08-16] MEDS ORDERED: Rocuronium Bromide 10 MG/ML (10ML VIAL) IVP PRN (17:44)
[2020-08-16] MEDS: Atorvastatin Calcium 10 MG TAB PO SCH (20:08)
[2020-08-17] MEDS: Cefepime 2 GM in Sodium Chloride 0.9% 100 ML IVPB SCH ×2 (00:35→11:42)
[2020-08-17] MEDS: guaiFENesin/Codeine 200 mg/20 mg 10 ml Cup PO SCH ×4 (00:35→18:24)
[2020-08-17] MEDS: Vancomycin HCl 750 MG in Sodium Chloride 0.9% 250 ML 250 ML IVPB SCH ×2 (00:36→13:51)
[2020-08-17] MEDS: Bisacodyl 10 MG SUPP PR SCH ×3 (01:01→17:35)
[2020-08-17] MEDS: Micafungin 100 MG in Sodium Chloride 0.9% 100 ML IVPB SCH (01:01)
[2020-08-17] MEDS: Dextrose 50% Abboject 50 ML SYRINGE SLOW IVP PRN ×2 (01:15→10:39)
[2020-08-17] MEDS: Rocuronium Bromide 10 MG/ML (10ML VIAL) IVP PRN ×2 (01:15→15:32)
[2020-08-17 04:24] LABS: Anion Gap 11 mmol/L (10-20); BUN (Urea Nitrogen) 45 mg/dL (9.8-20.1); Calc. Creatinine Clearance 85 mL/min (70-130); Calcium 7.3 mg/dL (7.8-10.44); Carbon Dioxide 19 mmol/L (23-31); Chloride 115 mmol/L (98-107); Glucose 84 mg/dL (83-110); Potassium 3.4 mmol/L (3.5-5.1); Sodium 142 mmol/L (136-145)
[2020-08-17 04:25] LABS: Band 21 % (5-11); Hemoglobin 8.8 g/dL (12.0-16.0); Hypochromia SLIGHT = 6-15 cells (100X) (0-5/hpf); Lymphocytes 6 % (21-51); MDiff Complete? YES; Mean Corpuscular HGB CONC 31.8 g/dL (32.0-36.0); Mean Corpuscular Hemoglobin 31.9 pg (27.0-31.0); Mean Platelet Volume 10.8 fL (7.4-10.4); Metamyelocyte 1 % (0-0); Monocytes 9 % (0-10); Neutrophil 61 % (42-75); Platelet Count 34 thou/uL (130-400); Platelet Morphology Comment Appears Decreased; RBC Distribution Width 17.3 % (11.5-14.5); Reactive Lymphocytes 2 % (0-10); Red Blood Cell (RBC) Count 2.76 mill/uL (4.20-5.40); White Blood Cell (WBC) Count 8.8 thou/uL (4.8-10.8)
[2020-08-17] MEDS: Metoclopramide HCl 10 MG/2 ML VIAL IVP SCH ×3 (05:35→21:24)
[2020-08-17] MEDS ORDERED: Potassium Chloride 40 MEQ in Premix Bag 1 BAG IVPB SCH (06:00)
[2020-08-17 07:47] LABS: Base Excess (BEa) -7.4 mEq/L (-2.0 to +3.0); CO2 Tension 42.9 mmHg (35.0-45.0); Calcium, Ionized (arterial) 1.07 mmol/L (1.12-1.30); Carboxyhemoglobin (COHb) 0.5 gm% (0.0-3.0); Hemoglobin (Hb) 7.6 g/dL (12.0-16.0); O2 Tension (PaO2), arterial 109.3 mmHg (> 70.0); Potassium - ABG Lab 3.47 mmol/L (3.70-5.30); pH, Arterial 7.26 (7.35-7.45)
[2020-08-17 07:48] LABS: ALV-art Gradient 478.775 mmHg (0-20); Puncture Site RRA
[2020-08-17] MEDS: methylPREDNISolone Sod Succ 40 MG VIAL IVP SCH ×2 (08:45→21:24)
[2020-08-17] MEDS: Ascorbic Acid 500 mg Chewable Tablet PO SCH (08:45)
[2020-08-17] MEDS: Polyethylene Glycol 3350 17 GM Packet PER TUBE SCH (08:45)
[2020-08-17] MEDS: Pantoprazole 40 MG GRANULES PACKET PER TUBE SCH ×2 (08:45→21:24)
[2020-08-17] MEDS: Zinc Sulfate 220 MG CAP PO SCH (08:46)
[2020-08-17] MEDS: Senokot S 8.6-50 MG TAB PER TUBE SCH ×2 (08:46→21:24)
[2020-08-17] MEDS: Lantus 1000 UNITS/10 ML VIAL SC SCH ×2 (08:49→21:25)
[2020-08-17] MEDS: Dextrose 5% in Water 1,000 ML IV PRN ×2 (10:36→22:24)
[2020-08-17] MEDS: Scopolamine 1.5 mg/72 hour Patch TOP SCH (11:43)
[2020-08-17] MEDS: Norepinephrine 8 MG/0.9% NS 250 ML IVPB SCH (12:00)
[2020-08-17] MEDS ORDERED: Sodium Chloride 0.9% 10 ML ONE (18:05)
[2020-08-17] MEDS: Atorvastatin Calcium 10 MG TAB PO SCH (21:25)
[2020-08-17] MEDS: Vecuronium 10 MG VIAL IV PRN (22:40)
[2020-08-17] MEDS: Lorazepam 2 MG/ML VIAL SLOW IVP PRN (22:41)
[2020-08-17 23:58] LABS: Anion Gap 13 mmol/L (10-20); BUN (Urea Nitrogen) 46 mg/dL (9.8-20.1); Calc. Creatinine Clearance 77 mL/min (70-130); Calcium 7.4 mg/dL (7.8-10.44); Carbon Dioxide 18 mmol/L (23-31); Chloride 112 mmol/L (98-107); Glucose 102 mg/dL (83-110); Magnesium 1.7 mg/dL (1.6-2.6); Potassium 4.2 mmol/L (3.5-5.1); Sodium 139 mmol/L (136-145)
[2020-08-18] MEDS: Morphine 4 MG/ML VIAL SLOW IVP PRN ×2 (00:29→23:22)
[2020-08-18] MEDS ORDERED: Magnesium 2 GM/50 ML 2 GM in Premix Bag 1 BAG IVPB SCH (00:30)
[2020-08-18] MEDS: Cefepime 2 GM in Sodium Chloride 0.9% 100 ML IVPB SCH ×3 (00:32→23:18)
[2020-08-18 00:44] LABS: Vancomycin, Trough 34.4 ug/mL
[2020-08-18] MEDS: guaiFENesin/Codeine 200 mg/20 mg 10 ml Cup PO SCH ×5 (01:14→23:18)
[2020-08-18] MEDS: Micafungin 100 MG in Sodium Chloride 0.9% 100 ML IVPB SCH (02:13)
[2020-08-18] MEDS: Bisacodyl 10 MG SUPP PR SCH ×3 (02:18→18:22)
[2020-08-18] MEDS: Vancomycin HCl 750 MG in Sodium Chloride 0.9% 250 ML 250 ML IVPB SCH (02:19)
[2020-08-18 04:44] LABS: Mean Corpuscular HGB CONC 32.2 g/dL (32.0-36.0); Mean Corpuscular Hemoglobin 32.6 pg (27.0-31.0); Mean Platelet Volume 11.3 fL (7.4-10.4); Platelet Count 37 thou/uL (130-400); RBC Distribution Width 18.1 % (11.5-14.5); Red Blood Cell (RBC) Count 2.76 mill/uL (4.20-5.40); White Blood Cell (WBC) Count 14.7 thou/uL (4.8-10.8)
[2020-08-18 04:51] LABS: Anion Gap 11 mmol/L (10-20); BUN (Urea Nitrogen) 46 mg/dL (9.8-20.1); Calc. Creatinine Clearance 79 mL/min (70-130); Calcium 7.3 mg/dL (7.8-10.44); Carbon Dioxide 18 mmol/L (23-31); Chloride 112 mmol/L (98-107); Glucose 90 mg/dL (83-110); Magnesium 2.6 mg/dL (1.6-2.6); Sodium 137 mmol/L (136-145)
[2020-08-18 05:05] LABS: Lymphocytes 2 % (21-51); MDiff Complete? YES; Metamyelocyte 6 % (0-0); Monocytes 3 % (0-10); Neutrophil 89 % (42-75); Platelet Morphology Comment Appears Decreased
[2020-08-18] MEDS: Metoclopramide HCl 10 MG/2 ML VIAL IVP SCH ×3 (06:33→21:57)
[2020-08-18] MEDS: methylPREDNISolone Sod Succ 40 MG VIAL IVP SCH ×2 (09:00→21:56)
[2020-08-18] MEDS: Polyethylene Glycol 3350 17 GM Packet PER TUBE SCH (09:00)
[2020-08-18] MEDS: Pantoprazole 40 MG GRANULES PACKET PER TUBE SCH ×2 (09:01→21:56)
[2020-08-18] MEDS: Lantus 1000 UNITS/10 ML VIAL SC SCH ×2 (09:01→22:23)
[2020-08-18] MEDS: Ascorbic Acid 500 mg Chewable Tablet PO SCH (09:01)
[2020-08-18] MEDS: Zinc Sulfate 220 MG CAP PO SCH (09:01)
[2020-08-18] MEDS: Senokot S 8.6-50 MG TAB PER TUBE SCH ×2 (09:02→21:56)
[2020-08-18] MEDS: Norepinephrine 8 MG/0.9% NS 250 ML IVPB SCH (11:44)
[2020-08-18] MEDS: Lorazepam 2 MG/ML VIAL SLOW IVP PRN ×2 (11:49→22:29)
[2020-08-18] MEDS ORDERED: Vancomycin HCl 750 MG in Sodium Chloride 0.9% 250 ML 250 ML IVPB SCH (12:00)
[2020-08-18 12:20] LABS: Vancomycin, Random 28.5 ug/mL (See Comment)
[2020-08-18] MEDS: Dextrose 5% in Water 1,000 ML IV PRN (18:19)
[2020-08-18] MEDS: Atorvastatin Calcium 10 MG TAB PO SCH (21:59)
[2020-08-19] MEDS: Vecuronium 10 MG VIAL IV PRN (00:53)
[2020-08-19] MEDS: Bisacodyl 10 MG SUPP PR SCH ×3 (02:44→19:14)
[2020-08-19] MEDS: Micafungin 100 MG in Sodium Chloride 0.9% 100 ML IVPB SCH (02:44)
[2020-08-19] MEDS: Morphine 4 MG/ML VIAL SLOW IVP PRN (02:49)
[2020-08-19 04:10] LABS: Anion Gap 11 mmol/L (10-20); Anisocytosis SLIGHT = 6-15 cells (100X) (0-5/hpf); BUN (Urea Nitrogen) 46 mg/dL (9.8-20.1); Band 27 % (5-11); Calc. Creatinine Clearance 71 mL/min (70-130); Calcium 7.4 mg/dL (7.8-10.44); Carbon Dioxide 18 mmol/L (23-31); Chloride 109 mmol/L (98-107); Glucose 198 mg/dL (83-110); Hemoglobin 9.3 g/dL (12.0-16.0); Lymphocytes 4 % (21-51); MDiff Complete? YES; Magnesium 2.3 mg/dL (1.6-2.6); Mean Corpuscular HGB CONC 31.9 g/dL (32.0-36.0); Mean Corpuscular Hemoglobin 31.8 pg (27.0-31.0); Mean Corpuscular Volume 99.8 fL (78.0-98.0); Mean Platelet Volume 10.8 fL (7.4-10.4); Neutrophil 69 % (42-75); Platelet Count 42 thou/uL (130-400); Platelet Morphology Comment Appears Decreased; Potassium 4.1 mmol/L (3.5-5.1); RBC Distribution Width 17.8 % (11.5-14.5); Red Blood Cell (RBC) Count 2.93 mill/uL (4.20-5.40); Sodium 134 mmol/L (136-145); White Blood Cell (WBC) Count 17.2 thou/uL (4.8-10.8)
[2020-08-19] MEDS: Fondaparinux Sodium 2.5 MG/0.5 ML SYRINGE SC SCH (06:26)
[2020-08-19] MEDS: guaiFENesin/Codeine 200 mg/20 mg 10 ml Cup PO SCH ×3 (06:28→19:14)
[2020-08-19] MEDS: Metoclopramide HCl 10 MG/2 ML VIAL IVP SCH ×3 (06:30→19:11)
[2020-08-19] MEDS: Zinc Sulfate 220 MG CAP PO SCH (10:10)
[2020-08-19] MEDS: Ascorbic Acid 500 mg Chewable Tablet PO SCH (10:10)
[2020-08-19] MEDS: Polyethylene Glycol 3350 17 GM Packet PER TUBE SCH (10:10)
[2020-08-19] MEDS: Senokot S 8.6-50 MG TAB PER TUBE SCH ×2 (10:11→21:05)
[2020-08-19] MEDS: Pantoprazole 40 MG GRANULES PACKET PER TUBE SCH ×2 (10:11→21:01)
[2020-08-19] MEDS: methylPREDNISolone Sod Succ 40 MG VIAL IVP SCH ×2 (10:11→21:01)
[2020-08-19] MEDS: Lantus 1000 UNITS/10 ML VIAL SC SCH ×2 (10:15→21:44)
[2020-08-19 10:34] LABS: Vancomycin, Random 22.2 ug/mL (See Comment)
[2020-08-19] MEDS: Cefepime 2 GM in Sodium Chloride 0.9% 100 ML IVPB SCH (12:35)
[2020-08-19 13:37] LABS: Ref Lab Test Ordered KARIUS; Reference Lab Name KARIUS
[2020-08-19] MEDS: Insulin Regular 300 UNITS/3 ML VIAL SC PRN ×2 (16:47→21:52)
[2020-08-19] MEDS: Atorvastatin Calcium 10 MG TAB PO SCH (21:01)
[2020-08-19 21:19] LABS: Vancomycin, Random 19.7 ug/mL (See Comment)
[2020-08-20] MEDS: guaiFENesin/Codeine 200 mg/20 mg 10 ml Cup PO SCH ×4 (00:08→17:38)
[2020-08-20] MEDS: Metoclopramide HCl 10 MG/2 ML VIAL IVP SCH ×4 (00:36→17:27)
[2020-08-20] MEDS: Micafungin 100 MG in Sodium Chloride 0.9% 100 ML IVPB SCH (01:14)
[2020-08-20] MEDS: Bisacodyl 10 MG SUPP PR SCH ×3 (02:21→17:27)
[2020-08-20] MEDS: Insulin Regular 300 UNITS/3 ML VIAL SC PRN ×2 (04:19→17:24)
[2020-08-20 04:49] LABS: Anion Gap 12 mmol/L (10-20); BUN (Urea Nitrogen) 49 mg/dL (9.8-20.1); Calc. Creatinine Clearance 69 mL/min (70-130); Calcium 7.6 mg/dL (7.8-10.44); Carbon Dioxide 17 mmol/L (23-31); Chloride 110 mmol/L (98-107); Glucose 164 mg/dL (83-110); Magnesium 2.3 mg/dL (1.6-2.6); Potassium 3.9 mmol/L (3.5-5.1); Sodium 135 mmol/L (136-145)
[2020-08-20 05:00] LABS: Band 12 % (5-11); Lymphocytes 3 % (21-51); MDiff Complete? YES; Mean Corpuscular HGB CONC 32.8 g/dL (32.0-36.0); Mean Corpuscular Hemoglobin 32.5 pg (27.0-31.0); Mean Platelet Volume 10.2 fL (7.4-10.4); Monocytes 3 % (0-10); Neutrophil 82 % (42-75); Platelet Count 47 thou/uL (130-400); Platelet Morphology Comment Appears Decreased; RBC Distribution Width 17.1 % (11.5-14.5); Red Blood Cell (RBC) Count 2.78 mill/uL (4.20-5.40)
[2020-08-20] MEDS: Fondaparinux Sodium 2.5 MG/0.5 ML SYRINGE SC SCH (06:44)
[2020-08-20] MEDS ORDERED: Vancomycin HCl 500 MG in Sodium Chloride 0.9% 100 ML IVPB SCH (09:00)
[2020-08-20] MEDS: Pantoprazole 40 MG GRANULES PACKET PER TUBE SCH ×2 (09:05→20:35)
[2020-08-20] MEDS: Zinc Sulfate 220 MG CAP PO SCH (09:06)
[2020-08-20] MEDS: Ascorbic Acid 500 mg Chewable Tablet PO SCH (09:06)
[2020-08-20] MEDS: methylPREDNISolone Sod Succ 40 MG VIAL IVP SCH ×2 (09:06→20:35)
[2020-08-20] MEDS: Polyethylene Glycol 3350 17 GM Packet PER TUBE SCH (09:07)
[2020-08-20] MEDS: Senokot S 8.6-50 MG TAB PER TUBE SCH ×2 (09:08→21:48)
[2020-08-20] MEDS: Lantus 1000 UNITS/10 ML VIAL SC SCH ×2 (10:34→21:48)
[2020-08-20] MEDS: Vecuronium 10 MG VIAL IV PRN (11:04)
[2020-08-20] MEDS: Cefepime 2 GM in Sodium Chloride 0.9% 100 ML IVPB SCH ×2 (12:16)
[2020-08-20] MEDS: Scopolamine 1.5 mg/72 hour Patch TOP SCH (12:20)
[2020-08-20] MEDS: Amikacin Sulfate 900 MG in Sodium Chloride 0.9% 100 ML IVPB SCH (12:38)
[2020-08-20] MEDS: GANCICLOVIR SODIUM IVPB SCH (13:55)
[2020-08-20] MEDS: SODIUM CHLORIDE 0.9% IVPB SCH (13:55)
[2020-08-20] MEDS ORDERED: Ganciclovir Sodium 500 MG/10 ML VIAL IVPB SCH (21:00)
[2020-08-20] MEDS: Atorvastatin Calcium 10 MG TAB PO SCH (21:47)
[2020-08-21] MEDS: Cefepime 2 GM in Sodium Chloride 0.9% 100 ML IVPB SCH ×2 (00:05→12:40)
[2020-08-21] MEDS: guaiFENesin/Codeine 200 mg/20 mg 10 ml Cup PO SCH ×4 (00:05→18:02)
[2020-08-21] MEDS: Metoclopramide HCl 10 MG/2 ML VIAL IVP SCH ×4 (00:05→18:02)
[2020-08-21] MEDS: Micafungin 100 MG in Sodium Chloride 0.9% 100 ML IVPB SCH (00:05)
[2020-08-21] MEDS: GANCICLOVIR SODIUM IVPB SCH ×2 (01:56→12:42)
[2020-08-21] MEDS: SODIUM CHLORIDE 0.9% IVPB SCH ×2 (01:56→12:42)
[2020-08-21] MEDS: Bisacodyl 10 MG SUPP PR SCH ×3 (03:11→18:02)
[2020-08-21 05:23] LABS: Anion Gap 10 mmol/L (10-20); BUN (Urea Nitrogen) 51 mg/dL (9.8-20.1); Calc. Creatinine Clearance 68 mL/min (70-130); Calcium 7.5 mg/dL (7.8-10.44); Carbon Dioxide 19 mmol/L (23-31); Chloride 113 mmol/L (98-107); Glucose 205 mg/dL (83-110); Magnesium 1.9 mg/dL (1.6-2.6); Sodium 138 mmol/L (136-145)
[2020-08-21 05:28] LABS: Band 28 % (5-11); Hemoglobin 7.4 g/dL (12.0-16.0); Lymphocytes 3 % (21-51); MDiff Complete? YES; Mean Corpuscular HGB CONC 32.6 g/dL (32.0-36.0); Mean Corpuscular Hemoglobin 32.5 pg (27.0-31.0); Mean Corpuscular Volume 99.9 fL (78.0-98.0); Mean Platelet Volume 10.3 fL (7.4-10.4); Metamyelocyte 2 % (0-0); Neutrophil 67 % (42-75); Platelet Count 62 thou/uL (130-400); Platelet Morphology Comment Appears Decreased; RBC Distribution Width 17.6 % (11.5-14.5); Red Blood Cell (RBC) Count 2.27 mill/uL (4.20-5.40); White Blood Cell (WBC) Count 8.3 thou/uL (4.8-10.8)
[2020-08-21] MEDS: Fondaparinux Sodium 2.5 MG/0.5 ML SYRINGE SC SCH (05:50)
[2020-08-21] MEDS: Insulin Regular 300 UNITS/3 ML VIAL SC PRN ×3 (06:01→21:43)
[2020-08-21] MEDS ORDERED: Magnesium 2 GM/50 ML 2 GM in Premix Bag 1 BAG IVPB SCH (07:00)
[2020-08-21] MEDS: Polyethylene Glycol 3350 17 GM Packet PER TUBE SCH (08:18)
[2020-08-21] MEDS: Pantoprazole 40 MG GRANULES PACKET PER TUBE SCH ×2 (08:19→21:35)
[2020-08-21] MEDS: Ascorbic Acid 500 mg Chewable Tablet PO SCH (08:19)
[2020-08-21] MEDS: Zinc Sulfate 220 MG CAP PO SCH (08:19)
[2020-08-21] MEDS: Senokot S 8.6-50 MG TAB PER TUBE SCH ×2 (08:19→21:35)
[2020-08-21] MEDS: methylPREDNISolone Sod Succ 40 MG VIAL IVP SCH ×2 (08:20→21:35)
[2020-08-21] MEDS: Lantus 1000 UNITS/10 ML VIAL SC SCH ×2 (08:38→21:35)
[2020-08-21] MEDS: Norepinephrine 8 MG/0.9% NS 250 ML IVPB SCH (08:42)
[2020-08-21 09:08] LABS: Vancomycin, Random 17.3 ug/mL (See Comment)
[2020-08-21] MEDS: Vancomycin HCl 750 MG in Sodium Chloride 0.9% 250 ML 250 ML IVPB SCH (10:11)
[2020-08-21] MEDS: Amikacin Sulfate 900 MG in Sodium Chloride 0.9% 100 ML IVPB SCH (12:59)
[2020-08-21] MEDS: Atorvastatin Calcium 10 MG TAB PO SCH (21:35)
[2020-08-22] MEDS: Cefepime 2 GM in Sodium Chloride 0.9% 100 ML IVPB SCH ×3 (00:51→23:20)
[2020-08-22] MEDS: guaiFENesin/Codeine 200 mg/20 mg 10 ml Cup PO SCH ×5 (00:51→23:20)
[2020-08-22] MEDS: Metoclopramide HCl 10 MG/2 ML VIAL IVP SCH ×5 (00:51→23:21)
[2020-08-22] MEDS: Micafungin 100 MG in Sodium Chloride 0.9% 100 ML IVPB SCH (01:03)
[2020-08-22] MEDS: SODIUM CHLORIDE 0.9% IVPB SCH ×2 (01:41→14:42)
[2020-08-22] MEDS: GANCICLOVIR SODIUM IVPB SCH ×2 (01:41→14:42)
[2020-08-22] MEDS: Bisacodyl 10 MG SUPP PR SCH ×3 (02:12→18:24)
[2020-08-22] MEDS: Lorazepam 2 MG/ML VIAL SLOW IVP PRN ×4 (03:37→21:09)
[2020-08-22 05:10] LABS: Anion Gap 10 mmol/L (10-20); BUN (Urea Nitrogen) 45 mg/dL (9.8-20.1); Calc. Creatinine Clearance 72 mL/min (70-130); Calcium 7.7 mg/dL (7.8-10.44); Carbon Dioxide 21 mmol/L (23-31); Chloride 113 mmol/L (98-107); Glucose 216 mg/dL (83-110); Sodium 140 mmol/L (136-145)
[2020-08-22 05:30] LABS: Band 16 % (5-11); Lymphocytes 7 % (21-51); MDiff Complete? YES; Mean Corpuscular HGB CONC 33.6 g/dL (32.0-36.0); Mean Corpuscular Hemoglobin 33.4 pg (27.0-31.0); Mean Corpuscular Volume 99.6 fL (78.0-98.0); Mean Platelet Volume 9.7 fL (7.4-10.4); Metamyelocyte 1 % (0-0); Monocytes 3 % (0-10); Myelocyte 1 % (0-0); Neutrophil 72 % (42-75); Platelet Count 94 thou/uL (130-400); Platelet Morphology Comment Appears Decreased; RBC Distribution Width 17.2 % (11.5-14.5); White Blood Cell (WBC) Count 3.5 thou/uL (4.8-10.8)
[2020-08-22] MEDS: Fondaparinux Sodium 2.5 MG/0.5 ML SYRINGE SC SCH (05:55)
[2020-08-22] MEDS: Insulin Regular 300 UNITS/3 ML VIAL SC PRN ×4 (05:57→20:51)
[2020-08-22] MEDS: Ascorbic Acid 500 mg Chewable Tablet PO SCH (09:35)
[2020-08-22] MEDS: Zinc Sulfate 220 MG CAP PO SCH (09:35)
[2020-08-22] MEDS: methylPREDNISolone Sod Succ 40 MG VIAL IVP SCH ×2 (09:37→20:50)
[2020-08-22] MEDS: Lantus 1000 UNITS/10 ML VIAL SC SCH ×2 (09:38→20:51)
[2020-08-22] MEDS: Senokot S 8.6-50 MG TAB PER TUBE SCH ×2 (09:49→20:52)
[2020-08-22] MEDS: Pantoprazole 40 MG GRANULES PACKET PER TUBE SCH ×2 (09:49→20:50)
[2020-08-22] MEDS: Polyethylene Glycol 3350 17 GM Packet PER TUBE SCH (09:59)
[2020-08-22] MEDS: Morphine 4 MG/ML VIAL SLOW IVP PRN ×2 (10:30→14:20)
[2020-08-22] MEDS: Vancomycin HCl 750 MG in Sodium Chloride 0.9% 250 ML 250 ML IVPB SCH (10:33)
[2020-08-22] MEDS: Amikacin Sulfate 900 MG in Sodium Chloride 0.9% 100 ML IVPB SCH (12:27)
[2020-08-22] MEDS: Scopolamine 1.5 mg/72 hour Patch TOP SCH (14:23)
[2020-08-22] MEDS: Atorvastatin Calcium 10 MG TAB PO SCH (20:50)
[2020-08-23] MEDS: Lorazepam 2 MG/ML VIAL SLOW IVP PRN ×3 (01:48→05:14)
[2020-08-23] MEDS: GANCICLOVIR SODIUM IVPB SCH ×2 (01:59→12:11)
[2020-08-23] MEDS: SODIUM CHLORIDE 0.9% IVPB SCH ×2 (01:59→12:11)
[2020-08-23] MEDS: Bisacodyl 10 MG SUPP PR SCH ×3 (02:11→17:42)
[2020-08-23] MEDS: Morphine 4 MG/ML VIAL SLOW IVP PRN ×3 (02:52→15:40)
[2020-08-23] MEDS: Insulin Regular 300 UNITS/3 ML VIAL SC PRN ×4 (03:48→21:21)
[2020-08-23 05:06] LABS: Anion Gap 9 mmol/L (10-20); BUN (Urea Nitrogen) 47 mg/dL (9.8-20.1); Calc. Creatinine Clearance 76 mL/min (70-130); Calcium 7.9 mg/dL (7.8-10.44); Carbon Dioxide 22 mmol/L (23-31); Chloride 113 mmol/L (98-107); Glucose 296 mg/dL (83-110); Potassium 3.8 mmol/L (3.5-5.1); Sodium 140 mmol/L (136-145)
[2020-08-23] MEDS: guaiFENesin/Codeine 200 mg/20 mg 10 ml Cup PO SCH ×4 (05:20→23:51)
[2020-08-23] MEDS: Fondaparinux Sodium 2.5 MG/0.5 ML SYRINGE SC SCH (05:20)
[2020-08-23] MEDS: Metoclopramide HCl 10 MG/2 ML VIAL IVP SCH ×3 (06:13→18:13)
[2020-08-23 06:41] LABS: Band 21 % (5-11); Hemoglobin 7.7 g/dL (12.0-16.0); Lymphocytes 14 % (21-51); MDiff Complete? YES; Mean Corpuscular HGB CONC 33.4 g/dL (32.0-36.0); Mean Corpuscular Volume 98.7 fL (78.0-98.0); Mean Platelet Volume 9.6 fL (7.4-10.4); Metamyelocyte 1 % (0-0); Monocytes 6 % (0-10); Neutrophil 58 % (42-75); Platelet Count 130 thou/uL (130-400); RBC Distribution Width 17.4 % (11.5-14.5); Red Blood Cell (RBC) Count 2.35 mill/uL (4.20-5.40); White Blood Cell (WBC) Count 1.4 thou/uL (4.8-10.8)
[2020-08-23] MEDS: Lantus 1000 UNITS/10 ML VIAL SC SCH ×2 (08:44→21:21)
[2020-08-23] MEDS: methylPREDNISolone Sod Succ 40 MG VIAL IVP SCH ×2 (08:44→21:16)
[2020-08-23] MEDS: Polyethylene Glycol 3350 17 GM Packet PER TUBE SCH (08:44)
[2020-08-23] MEDS: Ascorbic Acid 500 mg Chewable Tablet PO SCH (08:44)
[2020-08-23] MEDS: Pantoprazole 40 MG GRANULES PACKET PER TUBE SCH ×2 (08:44→21:16)
[2020-08-23] MEDS: Zinc Sulfate 220 MG CAP PO SCH (08:45)
[2020-08-23] MEDS: Senokot S 8.6-50 MG TAB PER TUBE SCH ×2 (08:45→23:45)
[2020-08-23] MEDS: Cefepime 2 GM in Sodium Chloride 0.9% 100 ML IVPB SCH ×2 (12:05→23:51)
[2020-08-23] MEDS: Amikacin Sulfate 900 MG in Sodium Chloride 0.9% 100 ML IVPB SCH (13:52)
[2020-08-23] MEDS: Labetalol HCl 100 MG/20 ML VIAL SLOW IVP SCH (21:17)
[2020-08-23] MEDS: Atorvastatin Calcium 10 MG TAB PO SCH (21:35)
[2020-08-24] MEDS: Metoclopramide HCl 10 MG/2 ML VIAL IVP SCH ×5 (02:02→23:32)
[2020-08-24] MEDS: SODIUM CHLORIDE 0.9% IVPB SCH ×2 (02:14→14:02)
[2020-08-24] MEDS: GANCICLOVIR SODIUM IVPB SCH ×2 (02:14→14:02)
[2020-08-24] MEDS: Bisacodyl 10 MG SUPP PR SCH ×3 (03:33→18:21)
[2020-08-24 04:58] LABS: Hemoglobin 7.5 g/dL (12.0-16.0); Mean Corpuscular HGB CONC 33.5 g/dL (32.0-36.0); Mean Corpuscular Hemoglobin 33.2 pg (27.0-31.0); Mean Corpuscular Volume 99.4 fL (78.0-98.0); Mean Platelet Volume 9.4 fL (7.4-10.4); Platelet Count 178 thou/uL (130-400); Red Blood Cell (RBC) Count 2.24 mill/uL (4.20-5.40); White Blood Cell (WBC) Count 2.1 thou/uL (4.8-10.8)
[2020-08-24 05:20] LABS: Anion Gap 10 mmol/L (10-20); BUN (Urea Nitrogen) 51 mg/dL (9.8-20.1); Calc. Creatinine Clearance 73 mL/min (70-130); Calcium 8.3 mg/dL (7.8-10.44); Carbon Dioxide 24 mmol/L (23-31); Chloride 113 mmol/L (98-107); Glucose 391 mg/dL (83-110); Potassium 3.7 mmol/L (3.5-5.1); Sodium 143 mmol/L (136-145)
[2020-08-24 05:23] LABS: Band 18 % (5-11); Lymphocytes 11 % (21-51); MDiff Complete? YES; Metamyelocyte 2 % (0-0); Monocytes 3 % (0-10); Myelocyte 3 % (0-0); Neutrophil 63 % (42-75)
[2020-08-24] MEDS: Fondaparinux Sodium 2.5 MG/0.5 ML SYRINGE SC SCH (05:50)
[2020-08-24] MEDS: Insulin Regular 300 UNITS/3 ML VIAL SC PRN ×3 (05:54→23:26)
[2020-08-24] MEDS: guaiFENesin/Codeine 200 mg/20 mg 10 ml Cup PO SCH ×4 (07:02→23:32)
[2020-08-24] MEDS: methylPREDNISolone Sod Succ 40 MG VIAL IVP SCH ×2 (10:05→20:33)
[2020-08-24] MEDS: Lantus 1000 UNITS/10 ML VIAL SC SCH ×2 (10:28→20:32)
[2020-08-24] MEDS: Ascorbic Acid 500 mg Chewable Tablet PO SCH (10:30)
[2020-08-24] MEDS: Labetalol HCl 100 MG/20 ML VIAL SLOW IVP SCH ×2 (10:30→20:32)
[2020-08-24] MEDS: Zinc Sulfate 220 MG CAP PO SCH (10:30)
[2020-08-24] MEDS: Pantoprazole 40 MG GRANULES PACKET PER TUBE SCH ×2 (10:31→20:34)
[2020-08-24] MEDS: Senokot S 8.6-50 MG TAB PER TUBE SCH ×2 (10:34→20:35)
[2020-08-24] MEDS: Polyethylene Glycol 3350 17 GM Packet PER TUBE SCH (10:34)
[2020-08-24] MEDS: TBO-Filgrastim 300 MCG/0.5 ML VIAL SC SCH (10:35)
[2020-08-24] MEDS: Morphine 4 MG/ML VIAL SLOW IVP PRN ×3 (10:51→22:33)
[2020-08-24] MEDS: Cefepime 2 GM in Sodium Chloride 0.9% 100 ML IVPB SCH ×2 (13:38→23:25)
[2020-08-24] MEDS: Amikacin Sulfate 900 MG in Sodium Chloride 0.9% 100 ML IVPB SCH (13:50)
[2020-08-24] MEDS: Atorvastatin Calcium 10 MG TAB PO SCH (20:31)
[2020-08-25] MEDS: Norepinephrine 8 MG/0.9% NS 250 ML IVPB SCH (00:23)
[2020-08-25] MEDS: GANCICLOVIR SODIUM IVPB SCH ×2 (02:17→13:04)
[2020-08-25] MEDS: SODIUM CHLORIDE 0.9% IVPB SCH ×2 (02:17→13:04)
[2020-08-25] MEDS: Bisacodyl 10 MG SUPP PR SCH ×3 (02:18→18:34)
[2020-08-25] MEDS: Lorazepam 2 MG/ML VIAL SLOW IVP PRN (03:30)
[2020-08-25 04:21] LABS: Anion Gap 8 mmol/L (10-20); BUN (Urea Nitrogen) 59 mg/dL (9.8-20.1); Calc. Creatinine Clearance 70 mL/min (70-130); Calcium 8.2 mg/dL (7.8-10.44); Carbon Dioxide 26 mmol/L (23-31); Chloride 116 mmol/L (98-107); Glucose 424 mg/dL (83-110); Sodium 146 mmol/L (136-145)
[2020-08-25] MEDS: Insulin Regular 300 UNITS/3 ML VIAL SC PRN ×2 (04:27→11:16)
[2020-08-25 04:31] LABS: Band 32 % (5-11); Hemoglobin 6.4 g/dL (12.0-16.0); Lymphocytes 11 % (21-51); MDiff Complete? YES; Mean Corpuscular HGB CONC 33.9 g/dL (32.0-36.0); Mean Corpuscular Hemoglobin 33.7 pg (27.0-31.0); Mean Corpuscular Volume 99.6 fL (78.0-98.0); Mean Platelet Volume 9.3 fL (7.4-10.4); Neutrophil 57 % (42-75); Nucleated RBC 3 % (0); Platelet Count 172 thou/uL (130-400); RBC Distribution Width 17.5 % (11.5-14.5); Red Blood Cell (RBC) Count 1.89 mill/uL (4.20-5.40); White Blood Cell (WBC) Count 8.7 thou/uL (4.8-10.8)
[2020-08-25] MEDS: Fondaparinux Sodium 2.5 MG/0.5 ML SYRINGE SC SCH (05:32)
[2020-08-25] MEDS: Metoclopramide HCl 10 MG/2 ML VIAL IVP SCH ×3 (06:07→18:33)
[2020-08-25] MEDS: guaiFENesin/Codeine 200 mg/20 mg 10 ml Cup PO SCH ×3 (06:07→18:34)
[2020-08-25] MEDS: Morphine 4 MG/ML VIAL SLOW IVP PRN ×4 (07:12→22:35)
[2020-08-25] MEDS: Pantoprazole 40 MG GRANULES PACKET PER TUBE SCH ×2 (09:12→20:15)
[2020-08-25] MEDS: TBO-Filgrastim 300 MCG/0.5 ML VIAL SC SCH (09:12)
[2020-08-25] MEDS: Zinc Sulfate 220 MG CAP PO SCH (09:12)
[2020-08-25] MEDS: Ascorbic Acid 500 mg Chewable Tablet PO SCH (09:12)
[2020-08-25] MEDS: methylPREDNISolone Sod Succ 40 MG VIAL IVP SCH ×2 (09:13→20:14)
[2020-08-25] MEDS: Lantus 1000 UNITS/10 ML VIAL SC SCH ×2 (09:16→20:13)
[2020-08-25] MEDS: Labetalol HCl 100 MG/20 ML VIAL SLOW IVP SCH ×2 (09:17→20:14)
[2020-08-25 10:35] LABS: Glucose 406 mg/dL (83-110)
[2020-08-25] MEDS ORDERED: Dextrose 5% in Water 1,000 ML IV PRN (11:21)
[2020-08-25] MEDS ORDERED: Dextrose 50% Abboject 50 ML SYRINGE SLOW IVP PRN (11:21)
[2020-08-25] MEDS: Cefepime 2 GM in Sodium Chloride 0.9% 100 ML IVPB SCH ×2 (11:27→18:33)
[2020-08-25] MEDS: Senokot S 8.6-50 MG TAB PER TUBE SCH ×2 (11:32→20:15)
[2020-08-25] MEDS: Polyethylene Glycol 3350 17 GM Packet PER TUBE SCH (11:32)
[2020-08-25] MEDS: Amikacin Sulfate 900 MG in Sodium Chloride 0.9% 100 ML IVPB SCH (12:30)
[2020-08-25] MEDS: Scopolamine 1.5 mg/72 hour Patch TOP SCH (15:23)
[2020-08-25 18:17] LABS: Glucose 385 mg/dL (83-110)
[2020-08-25] MEDS: HumaLOG 300 UNITS/3 ML VIAL SC PRN ×2 (18:34→22:31)
[2020-08-25] MEDS: Atorvastatin Calcium 10 MG TAB PO SCH (20:13)
[2020-08-26] MEDS: guaiFENesin/Codeine 200 mg/20 mg 10 ml Cup PO SCH ×5 (00:24→23:11)
[2020-08-26] MEDS: Metoclopramide HCl 10 MG/2 ML VIAL IVP SCH ×5 (00:24→23:11)
[2020-08-26] MEDS: Cefepime 2 GM in Sodium Chloride 0.9% 100 ML IVPB SCH ×3 (01:35→17:14)
[2020-08-26] MEDS: SODIUM CHLORIDE 0.9% IVPB SCH ×2 (01:35→13:16)
[2020-08-26] MEDS: Bisacodyl 10 MG SUPP PR SCH ×3 (01:35→17:59)
[2020-08-26] MEDS: GANCICLOVIR SODIUM IVPB SCH ×2 (01:35→13:16)
[2020-08-26] MEDS: Morphine 4 MG/ML VIAL SLOW IVP PRN ×3 (02:51→22:40)
[2020-08-26] MEDS: Lorazepam 2 MG/ML VIAL SLOW IVP PRN ×3 (04:31→21:10)
[2020-08-26 05:19] LABS: Band 30 % (5-11); Hemoglobin 7.9 g/dL (12.0-16.0); Hypochromia SLIGHT = 6-15 cells (100X) (0-5/hpf); Lymphocytes 5 % (21-51); MDiff Complete? YES; Mean Corpuscular HGB CONC 32.6 g/dL (32.0-36.0); Mean Corpuscular Hemoglobin 31.5 pg (27.0-31.0); Mean Corpuscular Volume 96.8 fL (78.0-98.0); Mean Platelet Volume 9.7 fL (7.4-10.4); Monocytes 6 % (0-10); Neutrophil 59 % (42-75); Nucleated RBC 2 % (0); Platelet Count 201 thou/uL (130-400); Platelet Morphology Comment Appears Adequate; RBC Distribution Width 16.2 % (11.5-14.5); Red Blood Cell (RBC) Count 2.49 mill/uL (4.20-5.40); White Blood Cell (WBC) Count 26.3 thou/uL (4.8-10.8)
[2020-08-26] MEDS: Fondaparinux Sodium 2.5 MG/0.5 ML SYRINGE SC SCH (05:49)
[2020-08-26] MEDS: HumaLOG 300 UNITS/3 ML VIAL SC PRN ×4 (05:50→21:03)
[2020-08-26 05:55] LABS: Anion Gap 12 mmol/L (10-20); BUN (Urea Nitrogen) 66 mg/dL (9.8-20.1); Calc. Creatinine Clearance 83 mL/min (70-130); Calcium 8.2 mg/dL (7.8-10.44); Carbon Dioxide 24 mmol/L (23-31); Chloride 118 mmol/L (98-107); Glucose 347 mg/dL (83-110); Potassium 3.9 mmol/L (3.5-5.1); Sodium 150 mmol/L (136-145)
[2020-08-26] MEDS: methylPREDNISolone Sod Succ 40 MG VIAL IVP SCH ×2 (09:37→20:22)
[2020-08-26] MEDS: Pantoprazole 40 MG GRANULES PACKET PER TUBE SCH ×2 (09:38→20:22)
[2020-08-26] MEDS: Zinc Sulfate 220 MG CAP PO SCH (09:39)
[2020-08-26] MEDS: Ascorbic Acid 500 mg Chewable Tablet PO SCH (09:39)
[2020-08-26] MEDS: Labetalol HCl 100 MG/20 ML VIAL SLOW IVP SCH ×3 (09:40→21:11)
[2020-08-26] MEDS: Lantus 1000 UNITS/10 ML VIAL SC SCH ×2 (09:41→21:02)
[2020-08-26] MEDS: Polyethylene Glycol 3350 17 GM Packet PER TUBE SCH (09:46)
[2020-08-26] MEDS: Senokot S 8.6-50 MG TAB PER TUBE SCH ×2 (09:46→20:22)
[2020-08-26] MEDS ORDERED: Lidocaine 1% (PF) 30 ML VIAL ONE (10:46)
[2020-08-26] MEDS: Loperamide HCl 2 MG CAP PO PRN (11:23)
[2020-08-26] MEDS: Amikacin Sulfate 900 MG in Sodium Chloride 0.9% 100 ML IVPB SCH (12:59)
[2020-08-26 15:43] LABS: Albumin 2.6 g/dL (3.4-4.8); Anion Gap 13 mmol/L (10-20); BUN (Urea Nitrogen) 67 mg/dL (9.8-20.1); Calc. Creatinine Clearance 81 mL/min (70-130); Calcium 8.2 mg/dL (7.8-10.44); Carbon Dioxide 23 mmol/L (23-31); Chloride 119 mmol/L (98-107); Glucose 330 mg/dL (83-110); Sodium 151 mmol/L (136-145)
[2020-08-26 16:01] LABS: Phosphorus 1.9 mg/dL (2.3-4.7)
[2020-08-26] MEDS ORDERED: Potassium Phosphate 15 MMOL in Sodium Chloride 0.9% 250 ML 250 ML IVPB SCH (17:30)
[2020-08-26] MEDS ORDERED: Metolazone 2.5 MG TAB PER TUBE SCH (18:45)
[2020-08-26] MEDS: Atorvastatin Calcium 10 MG TAB PO SCH (20:22)
[2020-08-27] MEDS: GANCICLOVIR SODIUM IVPB SCH ×2 (00:18→14:12)
[2020-08-27] MEDS: SODIUM CHLORIDE 0.9% IVPB SCH ×2 (00:18→14:12)
[2020-08-27] MEDS: Cefepime 2 GM in Sodium Chloride 0.9% 100 ML IVPB SCH ×3 (02:47→17:52)
[2020-08-27] MEDS: Bisacodyl 10 MG SUPP PR SCH ×3 (02:47→16:56)
[2020-08-27] MEDS: Lorazepam 2 MG/ML VIAL SLOW IVP PRN ×3 (03:41→21:01)
[2020-08-27] MEDS: Morphine 4 MG/ML VIAL SLOW IVP PRN (03:46)
[2020-08-27] MEDS: HumaLOG 300 UNITS/3 ML VIAL SC PRN ×4 (04:09→20:55)
[2020-08-27 04:54] LABS: Hemoglobin 5.4 g/dL (12.0-16.0); Mean Corpuscular HGB CONC 33.2 g/dL (32.0-36.0); Mean Corpuscular Volume 96.6 fL (78.0-98.0); Mean Platelet Volume 9.8 fL (7.4-10.4); Platelet Count 201 thou/uL (130-400); RBC Distribution Width 17.3 % (11.5-14.5); Red Blood Cell (RBC) Count 1.68 mill/uL (4.20-5.40)
[2020-08-27 05:02] LABS: Anion Gap 12 mmol/L (10-20); BUN (Urea Nitrogen) 72 mg/dL (9.8-20.1); Calc. Creatinine Clearance 88 mL/min (70-130); Calcium 7.5 mg/dL (7.8-10.44); Carbon Dioxide 24 mmol/L (23-31); Chloride 120 mmol/L (98-107); Glucose 324 mg/dL (83-110); Potassium 4.6 mmol/L (3.5-5.1); Sodium 151 mmol/L (136-145)
[2020-08-27 05:16] LABS: Band 22 % (5-11); Lymphocytes 4 % (21-51); MDiff Complete? YES; Microcytosis SLIGHT = 6-15 cells (100X) (0-5/hpf); Monocytes 3 % (0-10); Neutrophil 71 % (42-75); Nucleated RBC 4 % (0); Platelet Morphology Comment Appears Adequate; Polychromasia SLIGHT = 2-3 cells (100X) (0-2/hpf)
[2020-08-27] MEDS: guaiFENesin/Codeine 200 mg/20 mg 10 ml Cup PO SCH ×4 (05:30→23:51)
[2020-08-27] MEDS: Metoclopramide HCl 10 MG/2 ML VIAL IVP SCH ×4 (05:30→23:51)
[2020-08-27] MEDS: Fondaparinux Sodium 2.5 MG/0.5 ML SYRINGE SC SCH (05:30)
[2020-08-27] MEDS ORDERED: Potassium Phosphate 15 MMOL in Sodium Chloride 0.9% 100 ML IVPB SCH (06:30)
[2020-08-27] MEDS: Ascorbic Acid 500 mg Chewable Tablet PO SCH (09:20)
[2020-08-27] MEDS: Pantoprazole 40 MG GRANULES PACKET PER TUBE SCH ×2 (09:21→20:28)
[2020-08-27] MEDS: Zinc Sulfate 220 MG CAP PO SCH (09:21)
[2020-08-27] MEDS: methylPREDNISolone Sod Succ 40 MG VIAL IVP SCH (09:22)
[2020-08-27] MEDS: Lantus 1000 UNITS/10 ML VIAL SC SCH ×2 (09:22→20:56)
[2020-08-27] MEDS: Polyethylene Glycol 3350 17 GM Packet PER TUBE SCH (09:23)
[2020-08-27] MEDS: Senokot S 8.6-50 MG TAB PER TUBE SCH ×2 (09:23→20:29)
[2020-08-27] MEDS: Labetalol HCl 100 MG/20 ML VIAL SLOW IVP SCH ×2 (12:31→20:29)
[2020-08-27] MEDS: Amikacin Sulfate 900 MG in Sodium Chloride 0.9% 100 ML IVPB SCH (13:16)
[2020-08-27 15:11] LABS: Hemoglobin 7.2 g/dL (12.0-16.0); Mean Corpuscular HGB CONC 33.6 g/dL (32.0-36.0); Mean Corpuscular Hemoglobin 28.7 pg (27.0-31.0); Mean Corpuscular Volume 85.5 fL (78.0-98.0); Mean Platelet Volume 9.9 fL (7.4-10.4); Platelet Count 179 thou/uL (130-400); RBC Distribution Width 21.5 % (11.5-14.5); Red Blood Cell (RBC) Count 2.49 mill/uL (4.20-5.40)
[2020-08-27 15:32] LABS: Anisocytosis MODERATE=16-30 cells (100X) (0-5/hpf); Band 9 % (5-11); Lymphocytes 2 % (21-51); MDiff Complete? YES; Neutrophil 89 % (42-75); Nucleated RBC 9 % (0); Ovalocytes SLIGHT = 2-5 cells (100X) (0-1/hpf); Platelet Morphology Comment Appears Adequate; Polychromasia MODERATE = 3-4 cells (100X) (0-2/hpf); White Blood Cell (WBC) Count 37.8 thou/uL (4.8-10.8)
[2020-08-27] MEDS: Norepinephrine 8 MG/0.9% NS 250 ML IVPB SCH (17:42)
[2020-08-27] MEDS: Atorvastatin Calcium 10 MG TAB PO SCH (20:29)
[2020-08-28] MEDS: GANCICLOVIR SODIUM IVPB SCH ×2 (00:33→13:02)
[2020-08-28] MEDS: SODIUM CHLORIDE 0.9% IVPB SCH ×2 (00:33→13:02)
[2020-08-28] MEDS: Cefepime 2 GM in Sodium Chloride 0.9% 100 ML IVPB SCH ×3 (02:08→17:20)
[2020-08-28] MEDS: Bisacodyl 10 MG SUPP PR SCH ×3 (02:09→18:24)
[2020-08-28] MEDS: HumaLOG 300 UNITS/3 ML VIAL SC PRN ×4 (04:16→21:06)
[2020-08-28 04:39] LABS: Mean Corpuscular HGB CONC 34.5 g/dL (32.0-36.0); Mean Corpuscular Hemoglobin 29.8 pg (27.0-31.0); Mean Corpuscular Volume 86.4 fL (78.0-98.0); Red Blood Cell (RBC) Count 2.02 mill/uL (4.20-5.40); White Blood Cell (WBC) Count 44.6 thou/uL (4.8-10.8)
[2020-08-28 04:48] LABS: Band 12 % (5-11); Basophilic Stippling SLIGHT = 1-2 cells (100X) (None Seen); Lymphocytes 8 % (21-51); MDiff Complete? YES; Mean Platelet Volume 9.9 fL (7.4-10.4); Microcytosis SLIGHT = 6-15 cells (100X) (0-5/hpf); Monocytes 2 % (0-10); Neutrophil 78 % (42-75); Nucleated RBC 6 % (0); Platelet Count 199 thou/uL (130-400); Platelet Morphology Comment Appears Adequate; Polychromasia SLIGHT = 2-3 cells (100X) (0-2/hpf); RBC Distribution Width 22.9 % (11.5-14.5)
[2020-08-28 04:54] LABS: Anion Gap 13 mmol/L (10-20); BUN (Urea Nitrogen) 88 mg/dL (9.8-20.1); Calc. Creatinine Clearance 69 mL/min (70-130); Calcium 7.3 mg/dL (7.8-10.44); Carbon Dioxide 22 mmol/L (23-31); Chloride 119 mmol/L (98-107); Glucose 286 mg/dL (83-110); Potassium 5.5 mmol/L (3.5-5.1); Sodium 148 mmol/L (136-145)
[2020-08-28 07:19] LABS: Fibrinogen 225 mg/dL (253-463); INR-International Normal Ratio 1.3; Prothrombin Time 16.2 sec (12.0-14.7)
[2020-08-28 07:20] LABS: D-Dimer Test 0.86 *mcg/mL (0.27-0.43); PTT 34.4 sec (22.9-36.1)
[2020-08-28] MEDS: guaiFENesin/Codeine 200 mg/20 mg 10 ml Cup PO SCH ×4 (07:30→23:30)
[2020-08-28] MEDS: Fondaparinux Sodium 2.5 MG/0.5 ML SYRINGE SC SCH (07:30)
[2020-08-28] MEDS: Metoclopramide HCl 10 MG/2 ML VIAL IVP SCH ×4 (07:30→23:30)
[2020-08-28 08:16] LABS: FSP-Qualitative ABNORMAL (Normal); FSP-Semiquantitative >=5 & <20 mcg/mL (Less than 5)
[2020-08-28 08:24] LABS: Platelet Count 172 thou/uL (130-400)
[2020-08-28] MEDS: Norepinephrine 8 MG/0.9% NS 250 ML IVPB SCH ×2 (08:35→21:11)
[2020-08-28] MEDS: Labetalol HCl 100 MG/20 ML VIAL SLOW IVP SCH ×2 (08:36→20:13)
[2020-08-28] MEDS: Pantoprazole 40 MG GRANULES PACKET PER TUBE SCH ×2 (09:49→20:13)
[2020-08-28] MEDS: Ascorbic Acid 500 mg Chewable Tablet PO SCH (09:49)
[2020-08-28] MEDS: Zinc Sulfate 220 MG CAP PO SCH (09:49)
[2020-08-28] MEDS: methylPREDNISolone Sod Succ 40 MG VIAL IVP SCH (09:51)
[2020-08-28] MEDS: Polyethylene Glycol 3350 17 GM Packet PER TUBE SCH (09:51)
[2020-08-28] MEDS: Senokot S 8.6-50 MG TAB PER TUBE SCH ×2 (09:51→20:14)
[2020-08-28] MEDS: Lantus 1000 UNITS/10 ML VIAL SC SCH ×2 (09:55→21:05)
[2020-08-28] MEDS: Amikacin Sulfate 900 MG in Sodium Chloride 0.9% 100 ML IVPB SCH (12:57)
[2020-08-28] MEDS: Scopolamine 1.5 mg/72 hour Patch TOP SCH (17:19)
[2020-08-28 17:54] LABS: Glucose 319 mg/dL (83-110)
[2020-08-28] MEDS: Atorvastatin Calcium 10 MG TAB PO SCH (20:12)
[2020-08-29] MEDS: SODIUM CHLORIDE 0.9% IVPB SCH ×2 (00:32→14:29)
[2020-08-29] MEDS: GANCICLOVIR SODIUM IVPB SCH ×2 (00:32→14:29)
[2020-08-29] MEDS: Cefepime 2 GM in Sodium Chloride 0.9% 100 ML IVPB SCH ×3 (01:44→18:13)
[2020-08-29] MEDS: Bisacodyl 10 MG SUPP PR SCH ×3 (01:47→18:13)
[2020-08-29 05:36] LABS: Anion Gap 13 mmol/L (10-20); BUN (Urea Nitrogen) 104 mg/dL (9.8-20.1); Calc. Creatinine Clearance 56 mL/min (70-130); Calcium 7.2 mg/dL (7.8-10.44); Carbon Dioxide 20 mmol/L (23-31); Chloride 117 mmol/L (98-107); Glucose 229 mg/dL (83-110); Sodium 144 mmol/L (136-145)
[2020-08-29 05:47] LABS: Hemoglobin 6.1 g/dL (12.0-16.0); Lymphocytes 5 % (21-51); MDiff Complete? YES; Mean Corpuscular HGB CONC 36.4 g/dL (32.0-36.0); Mean Corpuscular Hemoglobin 31.9 pg (27.0-31.0); Mean Corpuscular Volume 87.5 fL (78.0-98.0); Neutrophil 95 % (42-75); Nucleated RBC 13 % (0); Platelet Count 134 thou/uL (130-400); Platelet Morphology Comment Appears Adequate; RBC Distribution Width 19.6 % (11.5-14.5); Red Blood Cell (RBC) Count 1.92 mill/uL (4.20-5.40); White Blood Cell (WBC) Count 25.4 thou/uL (4.8-10.8)
[2020-08-29] MEDS: HumaLOG 300 UNITS/3 ML VIAL SC PRN ×4 (05:54→21:01)
[2020-08-29] MEDS: guaiFENesin/Codeine 200 mg/20 mg 10 ml Cup PO SCH ×4 (05:58→23:02)
[2020-08-29] MEDS: Metoclopramide HCl 10 MG/2 ML VIAL IVP SCH ×5 (05:58→23:02)
[2020-08-29] MEDS: methylPREDNISolone Sod Succ 40 MG VIAL IVP SCH (08:56)
[2020-08-29] MEDS: Senokot S 8.6-50 MG TAB PER TUBE SCH ×2 (08:57→20:00)
[2020-08-29] MEDS: Zinc Sulfate 220 MG CAP PO SCH (08:57)
[2020-08-29] MEDS: Polyethylene Glycol 3350 17 GM Packet PER TUBE SCH (08:57)
[2020-08-29] MEDS: Pantoprazole 40 MG GRANULES PACKET PER TUBE SCH ×2 (08:57→20:00)
[2020-08-29] MEDS: Ascorbic Acid 500 mg Chewable Tablet PO SCH (08:57)
[2020-08-29] MEDS: Fondaparinux Sodium 2.5 MG/0.5 ML SYRINGE SC SCH (09:00)
[2020-08-29] MEDS: Lantus 1000 UNITS/10 ML VIAL SC SCH ×2 (09:01→21:00)
[2020-08-29] MEDS: Labetalol HCl 100 MG/20 ML VIAL SLOW IVP SCH ×2 (09:03→20:01)
[2020-08-29] MEDS: Norepinephrine 8 MG/0.9% NS 250 ML IVPB SCH ×2 (09:34→18:34)
[2020-08-29] MEDS ORDERED: Calcium Gluconate 4.6 MEQ in Sodium Chloride 0.9% 100 ML IVPB SCH (10:25)
[2020-08-29] MEDS: Albuterol Sulfate 2.5 mg/3 ml Neb NEB SCH ×2 (10:51→11:25)
[2020-08-29] MEDS: Amikacin Sulfate 900 MG in Sodium Chloride 0.9% 100 ML IVPB SCH (13:10)
[2020-08-29] MEDS: Morphine 4 MG/ML VIAL SLOW IVP PRN (13:36)
[2020-08-29] MEDS: Sodium Bicarbonate Tab 325 MG TAB PER TUBE SCH ×2 (15:38→20:00)
[2020-08-29] MEDS: Albumin 25% 25 GM/100 ML BOT IVPB SCH ×2 (15:38→21:01)
[2020-08-29 17:30] LABS: Glucose 303 mg/dL (83-110)
[2020-08-29 17:34] LABS: Albumin 2.4 g/dL (3.4-4.8); Anion Gap 15 mmol/L (10-20); BUN (Urea Nitrogen) 110 mg/dL (9.8-20.1); BUN/Creatinine Ratio 92.44; Calc. Creatinine Clearance 46 mL/min (70-130); Calcium 7.3 mg/dL (7.8-10.44); Carbon Dioxide 20 mmol/L (23-31); Chloride 118 mmol/L (98-107); Glucose 308 mg/dL (83-110); Phosphorus 6.6 mg/dL (2.3-4.7); Potassium 5.7 mmol/L (3.5-5.1); Sodium 147 mmol/L (136-145)
[2020-08-29] MEDS: Atorvastatin Calcium 10 MG TAB PO SCH (20:00)
[2020-08-30] MEDS: SODIUM CHLORIDE 0.9% IVPB SCH ×2 (00:36→13:10)
[2020-08-30] MEDS: GANCICLOVIR SODIUM IVPB SCH ×2 (00:36→13:10)
[2020-08-30] MEDS: Cefepime 2 GM in Sodium Chloride 0.9% 100 ML IVPB SCH ×3 (01:43→21:47)
[2020-08-30] MEDS: Bisacodyl 10 MG SUPP PR SCH ×3 (02:25→21:47)
[2020-08-30 04:30] LABS: Hemoglobin 5.3 g/dL (12.0-16.0); White Blood Cell (WBC) Count 13.7 thou/uL (4.8-10.8)
[2020-08-30 04:34] LABS: Band 13 % (5-11); Hypochromia SLIGHT = 6-15 cells (100X) (0-5/hpf); Lymphocytes 5 % (21-51); MDiff Complete? YES; Mean Corpuscular HGB CONC 35.6 g/dL (32.0-36.0); Mean Corpuscular Hemoglobin 31.9 pg (27.0-31.0); Mean Corpuscular Volume 89.7 fL (78.0-98.0); Mean Platelet Volume 10.8 fL (7.4-10.4); Metamyelocyte 1 % (0-0); Neutrophil 81 % (42-75); Nucleated RBC 7 % (0); Platelet Count 52 thou/uL (130-400); Platelet Morphology Comment Appears Decreased; RBC Distribution Width 16.6 % (11.5-14.5); Red Blood Cell (RBC) Count 1.66 mill/uL (4.20-5.40)
[2020-08-30 04:41] LABS: Anion Gap 16 mmol/L (10-20); BUN (Urea Nitrogen) 109 mg/dL (9.8-20.1); Calc. Creatinine Clearance 45 mL/min (70-130); Calcium 7.1 mg/dL (7.8-10.44); Carbon Dioxide 20 mmol/L (23-31); Chloride 115 mmol/L (98-107); Glucose 299 mg/dL (83-110); Potassium 5.4 mmol/L (3.5-5.1); Sodium 146 mmol/L (136-145)
[2020-08-30] MEDS: Metoclopramide HCl 10 MG/2 ML VIAL IVP SCH ×3 (05:04→21:57)
[2020-08-30] MEDS: Albumin 25% 25 GM/100 ML BOT IVPB SCH ×4 (05:05→21:51)
[2020-08-30] MEDS: guaiFENesin/Codeine 200 mg/20 mg 10 ml Cup PO SCH ×3 (05:05→21:57)
[2020-08-30 05:14] LABS: Glucose 303 mg/dL (83-110)
[2020-08-30] MEDS: HumaLOG 300 UNITS/3 ML VIAL SC PRN ×4 (05:45→22:55)
[2020-08-30] MEDS: Norepinephrine 8 MG/0.9% NS 250 ML IVPB SCH ×2 (06:02→17:47)
[2020-08-30 06:16] LABS: Hemoglobin 5.4 g/dL (12.0-16.0); Mean Corpuscular HGB CONC 34.4 g/dL (32.0-36.0); Mean Corpuscular Hemoglobin 31.1 pg (27.0-31.0); Mean Corpuscular Volume 90.4 fL (78.0-98.0); Mean Platelet Volume 10.6 fL (7.4-10.4); Platelet Count 56 thou/uL (130-400); RBC Distribution Width 16.6 % (11.5-14.5); Red Blood Cell (RBC) Count 1.73 mill/uL (4.20-5.40); White Blood Cell (WBC) Count 13.9 thou/uL (4.8-10.8)
[2020-08-30 06:37] LABS: Band 26 % (5-11); Hypochromia SLIGHT = 6-15 cells (100X) (0-5/hpf); Lymphocytes 5 % (21-51); MDiff Complete? YES; Monocytes 9 % (0-10); Neutrophil 60 % (42-75); Nucleated RBC 4 % (0); Platelet Morphology Comment Appears Decreased
[2020-08-30] MEDS: Fondaparinux Sodium 2.5 MG/0.5 ML SYRINGE SC SCH (08:05)
[2020-08-30] MEDS: Pantoprazole 40 MG GRANULES PACKET PER TUBE SCH ×2 (08:26→21:46)
[2020-08-30] MEDS: methylPREDNISolone Sod Succ 40 MG VIAL IVP SCH (08:26)
[2020-08-30] MEDS: Sodium Bicarbonate Tab 325 MG TAB PER TUBE SCH ×3 (08:26→21:46)
[2020-08-30] MEDS: Ascorbic Acid 500 mg Chewable Tablet PO SCH (08:26)
[2020-08-30] MEDS: Zinc Sulfate 220 MG CAP PO SCH (08:26)
[2020-08-30] MEDS: Senokot S 8.6-50 MG TAB PER TUBE SCH ×2 (08:27→21:57)
[2020-08-30] MEDS: Polyethylene Glycol 3350 17 GM Packet PER TUBE SCH (08:27)
[2020-08-30] MEDS: Lantus 1000 UNITS/10 ML VIAL SC SCH ×2 (08:38→22:54)
[2020-08-30] MEDS: Labetalol HCl 100 MG/20 ML VIAL SLOW IVP SCH ×2 (08:39→21:46)
[2020-08-30 11:56] LABS: Glucose 273 mg/dL (83-110)
[2020-08-30] MEDS: Amikacin Sulfate 900 MG in Sodium Chloride 0.9% 100 ML IVPB SCH (14:40)
[2020-08-30] MEDS: Atorvastatin Calcium 10 MG TAB PO SCH (21:46)
[2020-08-30 22:29] LABS: Glucose 237 mg/dL (83-110)
[2020-08-31] MEDS: Bisacodyl 10 MG SUPP PR SCH ×2 (01:16→11:02)
[2020-08-31] MEDS: Metoclopramide HCl 10 MG/2 ML VIAL IVP SCH ×3 (01:16→13:10)
[2020-08-31] MEDS: GANCICLOVIR SODIUM IVPB SCH ×2 (02:06→13:11)
[2020-08-31] MEDS: SODIUM CHLORIDE 0.9% IVPB SCH ×2 (02:06→13:11)
[2020-08-31] MEDS: guaiFENesin/Codeine 200 mg/20 mg 10 ml Cup PO SCH ×3 (02:10→13:10)
[2020-08-31] MEDS: Albumin 25% 25 GM/100 ML BOT IVPB SCH (02:20)
[2020-08-31 05:22] LABS: Anion Gap 15 mmol/L (10-20); BUN (Urea Nitrogen) 117 mg/dL (9.8-20.1); Calc. Creatinine Clearance 45 mL/min (70-130); Calcium 7.3 mg/dL (7.8-10.44); Carbon Dioxide 19 mmol/L (23-31); Chloride 114 mmol/L (98-107); Glucose 214 mg/dL (83-110); Sodium 143 mmol/L (136-145)
[2020-08-31 05:28] LABS: Hemoglobin 6.3 g/dL (12.0-16.0); Lymphocytes 8 % (21-51); MDiff Complete? YES; Mean Corpuscular HGB CONC 35.2 g/dL (32.0-36.0); Mean Corpuscular Hemoglobin 30.9 pg (27.0-31.0); Mean Corpuscular Volume 87.8 fL (78.0-98.0); Mean Platelet Volume 11.3 fL (7.4-10.4); Monocytes 4 % (0-10); Neutrophil 88 % (42-75); Nucleated RBC 9 % (0); Platelet Count 30 thou/uL (130-400); Platelet Morphology Comment Appears Adequate; RBC Distribution Width 15.4 % (11.5-14.5); Red Blood Cell (RBC) Count 2.06 mill/uL (4.20-5.40); White Blood Cell (WBC) Count 6.4 thou/uL (4.8-10.8)
[2020-08-31 07:06] VITALS: TEMP 98.6
[2020-08-31] MEDS: Polyethylene Glycol 3350 17 GM Packet PER TUBE SCH (08:55)
[2020-08-31] MEDS: methylPREDNISolone Sod Succ 40 MG VIAL IVP SCH (08:56)
[2020-08-31] MEDS: Cefepime 2 GM in Sodium Chloride 0.9% 100 ML IVPB SCH (08:56)
[2020-08-31] MEDS: Zinc Sulfate 220 MG CAP PO SCH (08:56)
[2020-08-31] MEDS: Ascorbic Acid 500 mg Chewable Tablet PO SCH (08:56)
[2020-08-31] MEDS: Sodium Bicarbonate Tab 325 MG TAB PER TUBE SCH (08:56)
[2020-08-31] MEDS: Pantoprazole 40 MG GRANULES PACKET PER TUBE SCH (08:56)
[2020-08-31] MEDS: Senokot S 8.6-50 MG TAB PER TUBE SCH (08:56)
[2020-08-31] MEDS: Labetalol HCl 100 MG/20 ML VIAL SLOW IVP SCH (08:57)
[2020-08-31] MEDS: Lantus 1000 UNITS/10 ML VIAL SC SCH (09:01)
[2020-08-31] MEDS ORDERED: Torsemide 10 MG TAB PO SCH (11:00)
[2020-08-31 11:01] VITALS: BP 105/51
[2020-08-31 11:42] LABS: Reticulocyte Count 3.8 % (0.5-1.5)
[2020-08-31 11:53] LABS: Iron 43 ug/dL (50-170); Iron Binding Capacity, Total 94 mcg/dL (265-497)
[2020-08-31 13:39] VITALS: BMI 30.7
[2020-08-31] MEDS ORDERED: Morphine 10 MG/ML VIAL SLOW IVP PRN (14:42)
[2020-08-31] MEDS: Scopolamine 1.5 mg/72 hour Patch TOP SCH (15:59)
[2020-09-01] MEDS ORDERED: Torsemide 10 MG TAB PO SCH (09:00)
== END 2020-08-31 18:15 | disposition expired | DRG 4 ==
LOC: ERS 11:13 → T4-A 13:06 → IMCU/EMU 07-10 22:23 → CCU 07-29 03:13 → SURG A 08-30 13:26 → CCU 08-30 13:45
PROVIDERS: ADMIT Family Medicine; ATTEND Internal Medicine
PROC: 8E0ZXY6 Isolation (ICD-10-PCS; 2020-07-09)
PROC: 5A09557 Assistance with Respiratory Ventilation, Greater than 96 Consecutive Hours, Continuous Positive Airway Pressure (ICD-10-PCS; 2020-07-11)
PROC: 5A1955Z Respiratory Ventilation, Greater than 96 Consecutive Hours (ICD-10-PCS; 2020-07-29)
PROC: 0BH17EZ Insertion of Endotracheal Airway into Trachea, Via Natural or Artificial Opening (ICD-10-PCS; 2020-07-29)
PROC: 0D9670Z Drainage of Stomach with Drainage Device, Via Natural or Artificial Opening (ICD-10-PCS; 2020-07-29)
PROC: 3E033XZ Introduction of Vasopressor into Peripheral Vein, Percutaneous Approach (ICD-10-PCS; 2020-07-29)
PROC: 0B110F4 Bypass Trachea to Cutaneous with Tracheostomy Device, Open Approach (ICD-10-PCS; principal; 2020-08-12)
PROC: 02H633Z Insertion of Infusion Device into Right Atrium, Percutaneous Approach (ICD-10-PCS; 2020-08-12)
PROC: 0DH63UZ Insertion of Feeding Device into Stomach, Percutaneous Approach (ICD-10-PCS; 2020-08-12)
PROC: 30233N1 Transfusion of Nonautologous Red Blood Cells into Peripheral Vein, Percutaneous Approach (ICD-10-PCS; 2020-08-25)
PROC: 0W9900Z Drainage of Right Pleural Cavity with Drainage Device, Open Approach (ICD-10-PCS; 2020-08-26)
DX: U07.1 COVID-19 (principal); J12.82 Pneumonia due to coronavirus disease 2019; J80 Acute respiratory distress syndrome; A41.9 Sepsis, unspecified organism; R65.21 Severe sepsis with septic shock; J15.1 Pneumonia due to Pseudomonas; D65 Disseminated intravascular coagulation [defibrination syndrome]; E87.2 Acidosis; K52.1 Toxic gastroenteritis and colitis; D61.818 Other pancytopenia; E46 Unspecified protein-calorie malnutrition; B25.9 Cytomegaloviral disease, unspecified; E87.0 Hyperosmolality and hypernatremia; D62 Acute posthemorrhagic anemia; N17.9 Acute kidney failure, unspecified; J93.83 Other pneumothorax; G72.81 Critical illness myopathy; Z66 Do not resuscitate; Z51.5 Encounter for palliative care; I10 Essential (primary) hypertension; F17.210 Nicotine dependence, cigarettes, uncomplicated; E78.5 Hyperlipidemia, unspecified; E11.65 Type 2 diabetes mellitus with hyperglycemia; E87.8 Other disorders of electrolyte and fluid balance, not elsewhere classified; T38.0X5A Adverse effect of glucocorticoids and synthetic analogues, initial encounter; T50.4X5A Adverse effect of drugs affecting uric acid metabolism, initial encounter; I95.9 Hypotension, unspecified; R00.1 Bradycardia, unspecified; T42.6X5A Adverse effect of other antiepileptic and sedative-hypnotic drugs, initial encounter; R13.12 Dysphagia, oropharyngeal phase; E11.649 Type 2 diabetes mellitus with hypoglycemia without coma; Y95 Nosocomial condition; B00.9 Herpesviral infection, unspecified; E83.39 Other disorders of phosphorus metabolism; E87.70 Fluid overload, unspecified; D63.8 Anemia in other chronic diseases classified elsewhere; E87.5 Hyperkalemia; E88.09 Other disorders of plasma-protein metabolism, not elsewhere classified; L89.322 Pressure ulcer of left buttock, stage 2; J84.10 Pulmonary fibrosis, unspecified; Z79.84 Long term (current) use of oral hypoglycemic drugs; Z90.49 Acquired absence of other specified parts of digestive tract; Z79.899 Other long term (current) drug therapy; Z90.710 Acquired absence of both cervix and uterus; Z79.82 Long term (current) use of aspirin; Z78.1 Physical restraint status; Z68.30 Body mass index [BMI] 30.0-30.9, adult; L89.156 Pressure-induced deep tissue damage of sacral region
CPT/HCPCS: 36415; 36416; 36430; 36600; 71045; 71275; 80048; 80053; 80202; 81001; 81003; 81015; 82040; 82274; 82550; 82728; 82805; 83010; 83540; 83550; 83615; 83690; 83735; 83880; 84100; 84484; 85007; 85014; 85018; 85025; 85027; 85046; 85049; 85300; 85362; 85379; 85384; 85610; 85730; 86140; 86850; 86900; 86901; 87040; 87077; 87086; 87186; 93005; 93010; 94002; 94003; 94640; 94660; 94760; 96365; 96367; 96372; 96375; C1751; C9113; J0278; J0456; J0692; J0696; J1100; J1447; J1450; J1570; J1650; J1652; J1815; J1940; J2001; J2060; J2185; J2248; J2270; J2405; J2704; J2765; J2920; J2930; J3010; J3370; J3475; J3480; J3490; J7050; J7512; J7611; J7620; P9016; P9045; P9047; Q9967; S0020